=== PATIENT | female | born 1930 | race Caucasian/White ===

== ENCOUNTER 2018-12-04 13:09 | Inpatient (IN) | payer MEDICARE ==
--- NOTE | 2018-12-04 13:26 | ED ---
General Adult HPI - General Chief complaint: Syncope Stated complaint: FALL Time Seen by Provider: 12/04/18 13:11 Source: patient, EMS, RN notes reviewed Mode of arrival: EMS Limitations: no limitations - History of Present Illness Initial comments: This is an 88-year-old female who presents emergency Department complaining of having had a syncopal episode 5:00 this morning patient states she had no symptoms prior or after the fall. Patient states she did not injure herself. Patient states she has a chronic C2 fracture of her neck and was not wearing her collar when she fell. Patient denies any new neck pain today patient denies any numbness weakness. Patient denies any headache patient denies any areas of tenderness on her scalp. Patient denies any chest pain palpitations difficulty breathing shortness of breath. Patient states later in the afternoon when her daughter is at the house she had another syncopal episode and again no symptoms prior to or after the episode. Patient states currently lying in bed she feels completely at her baseline. Patient has no new pain. - Related Data Home Medications Medication Instructions Recorded Confirmed Acetaminophen [Tylenol Arthritis] 1,300 mg PO BID 12/04/18 12/04/18 Artificial Tears-Hypromellose 1 drop LEFT EYE BID 12/04/18 12/04/18 [Artificial Tear Drops] Ascorbic Acid [Vitamin C] 500 mg PO DAILY 12/04/18 12/04/18 Aspirin [[place] Aspirin EC] 81 mg PO DAILY 12/04/18 12/04/18 Brimonidine Tartrate [Alphagan P 1 drop LEFT EYE BID 12/04/18 12/04/18 [facility] Calcium Carbonate [Calcium] 600 mg PO DAILY 12/04/18 12/04/18 Cholecalciferol [Vitamin D3] 400 unit PO DAILY 12/04/18 12/04/18 Cyanocobalamin (Vitamin B-12) 1,000 mg PO DAILY 12/04/18 12/04/18 [Vitamin B-12] Docusate [Colace] 100 mg PO DAILY 12/04/18 12/04/18 Dorzolamide 2% [Trusopt 2%] 1 drop LEFT EYE BID 12/04/18 12/04/18 Esomeprazole Magnesium [NexIUM] 40 mg PO DAILY 12/04/18 12/04/18 FLUoxetine HCL [PROzac] 10 mg PO DAILY 12/04/18 12/04/18 Fluticasone Nasal [place] [Flonase 1 spray EA NOSTRIL BID 12/04/18 12/04/18 Nasal [place]] Folic Acid 1 mg PO DAILY 12/04/18 12/04/18 Glucosamine Sulfate 500 mg PO DAILY 12/04/18 12/04/18 Latanoprost/Pf [Latanoprost 0.005% 1 drop BOTH EYES HS 12/04/18 12/04/18 Eye Drop] Lidocaine/Menthol [Icy Hot 4%-1% 1 patch TRANSDERM DAILY PRN 12/04/18 12/04/18 Patch] Losartan Potassium 100 mg PO BID 12/04/18 12/04/18 Lysine [l-Lysine] 500 mg PO DAILY 12/04/18 12/04/18 Memantine HCl/Donepezil HCl 1 cap PO DAILY 12/04/18 12/04/18 [Namzaric 28 mg-10 mg Capsule] Methimazole 5 mg PO MOWEFR 12/04/18 12/04/18 Multivitamins, Thera [Multivitamin 1 tab PO DAILY 12/04/18 12/04/18 (formulary)] [place]-3/Dha/Epa/Fish Oil [Fish Oil 500 mg PO DAILY 12/04/18 12/04/18 500 mg Softgel] Polyethylene Glycol 3350 [Miralax] 17 gram PO DAILY PRN 12/04/18 12/04/18 Sennosides [Senokot] 8.6 mg PO BID 12/04/18 12/04/18 Simvastatin [Zocor] 20 mg PO HS 12/04/18 12/04/18 Timolol 0.5% Ophth Soln [Timoptic 1 drop LEFT EYE BID 12/04/18 12/04/18 0.5% Ophth Soln] amLODIPine [Norvasc] 2.5 mg PO DAILY 12/04/18 12/04/18 Allergies Allergy/AdvReac Type Severity Reaction Status Date / Time adhesive tape Allergy Unknown Verified 12/04/18 13:16 naproxen [From Aleve] Allergy Nausea & Verified 12/04/18 13:39 Vomiting & Diarrhea Penicillins Allergy Unknown Verified 12/04/18 13:16 Review of Systems ROS Statement: Those systems with pertinent positive or pertinent negative responses have been documented in the HPI. ROS Other: All systems not noted in ROS Statement are negative. Past Medical History Past Medical History: Cancer, GERD/Reflux, Hyperlipidemia, Hypertension Additional Past Medical History / Comment(s): C-1 fx, breast cancer Past Surgical History: Orthopedic Surgery, Tonsillectomy Additional Past Surgical History / Comment(s): (L) breast biopsy Past Psychological History: No Psychological Hx Reported Smoking Status: Never smoker Past Alcohol Use History: None Reported General Exam - General Exam Comments Initial Comments: GENERAL: Patient is well-developed and well-nourished. Patient is nontoxic and well- hydrated and is in no acute distress. EYES: The sclera were anicteric and conjunctiva were pink and moist. Extraocular movements were intact and pupils were equal round and reactive to light. Eyelids were unremarkable. PULMONARY: Patient has normal lung sounds. Patient is moving good air. CARDIOVASCULAR: There is a regular rate and rhythm without any murmurs gallops or rubs. ABDOMEN: Soft and nontender with normal bowel sounds. No palpable organomegaly was noted. There is no palpable pulsatile mass. SKIN: Skin is clear with no lesions or rashes and otherwise unremarkable. NEUROLOGIC: Patient is alert and oriented x3. Cranial nerves II through XII are grossly intact. Motor and sensory are also intact. Normal speech, volume and content. Symmetrical smile. MUSCULOSKELETAL: Normal extremities with adequate strength and full range of motion. No lower extremity swelling or edema. No calf tenderness. LYMPHATICS: No significant lymphadenopathy is noted PSYCHIATRIC: Normal psychiatric evaluation. Limitations: no limitations Course Vital Signs 12/04/18 12/04/18 12/04/18 13:11 13:54 14:52 Temperature 98.1 F Pulse Rate 64 66 71 Respiratory 16 18 18 Rate Blood Pressure 184/79 178/76 178/76 O2 Sat by Pulse 95 100 100 Oximetry Medical Decision Making - Medical Decision Making EKG shows sinus rhythm at 65 bpm IA interval is 2:30 QRS is 94 Q-T intervals 460 QTC is 478. Patient's EKG shows no ST segment elevation or depression or T wave abnormalities are noted C-spine CT was negative for fracture. Chest x-ray shows some possible pulmonary edema of the patient is not having difficulty breathing I spoke with because he agreed to admit the patient admitted patient wrote admitting orders acute abnormality. - Lab Data Result diagrams: 12/04/18 13:25 12/04/18 13:25 Lab Results 12/04/18 12/04/18 12/04/18 Range/Units 13:25 13:25 13:25 WBC 7.9 (3.8-10.6) k/uL RBC 3.83 (3.80-5.40) m/uL Hgb 11.4 (11.4-16.0) gm/dL Hct 36.5 (34.0-46.0) % MCV 95.4 (80.0-100.0) fL MCH 29.7 (25.0-35.0) pg MCHC 31.1 (31.0-37.0) g/dL RDW 13.7 (11.5-15.5) % Plt Count 448 (150-450) k/uL Neutrophils % 84 % Lymphocytes % 4 % Monocytes % 9 % Eosinophils % 1 % Basophils % 0 % Neutrophils # 6.6 (1.3-7.7) k/uL Lymphocytes # 0.3 L (1.0-4.8) k/uL Monocytes # 0.7 (0-1.0) k/uL Eosinophils # 0.1 (0-0.7) k/uL Basophils # 0.0 (0-0.2) k/uL PT 10.1 (9.0-12.0) sec INR 0.9 (<1.2) APTT 25.8 (22.0-30.0) sec Sodium 135 L (137-145) mmol/L Potassium 3.2 L (3.5-5.1) mmol/L Chloride 98 (98-107) mmol/L Carbon Dioxide 27 (22-30) mmol/L Anion Gap 10 mmol/L BUN 11 (7-17) mg/dL Creatinine 0.90 (0.52-1.04) mg/dL Est GFR (CKD-EPI)AfAm 66 (>60 ml/min/1.73 sqM) Est GFR (CKD-EPI)NonAf 58 (>60 ml/min/1.73 sqM) Glucose 83 (74-99) mg/dL Calcium 9.5 (8.4-10.2) mg/dL Magnesium 1.8 (1.6-2.3) mg/dL Total Bilirubin 0.5 (0.2-1.3) mg/dL AST 22 (14-36) U/L ALT 29 (9-52) U/L Alkaline Phosphatase 77 (38-126) U/L Troponin I (0.000-0.034) ng/mL Total Protein 6.5 (6.3-8.2) g/dL Albumin 3.6 (3.5-5.0) g/dL 12/04/18 Range/Units 13:25 WBC (3.8-10.6) k/uL RBC (3.80-5.40) m/uL Hgb (11.4-16.0) gm/dL Hct (34.0-46.0) % MCV (80.0-100.0) fL MCH (25.0-35.0) pg MCHC (31.0-37.0) g/dL RDW (11.5-15.5) % Plt Count (150-450) k/uL Neutrophils % % Lymphocytes % % Monocytes % % Eosinophils % % Basophils % % Neutrophils # (1.3-7.7) k/uL Lymphocytes # (1.0-4.8) k/uL Monocytes # (0-1.0) k/uL Eosinophils # (0-0.7) k/uL Basophils # (0-0.2) k/uL PT (9.0-12.0) sec INR (<1.2) APTT (22.0-30.0) sec Sodium (137-145) mmol/L Potassium (3.5-5.1) mmol/L Chloride (98-107) mmol/L Carbon Dioxide (22-30) mmol/L Anion Gap mmol/L BUN (7-17) mg/dL Creatinine (0.52-1.04) mg/dL Est GFR (CKD-EPI)AfAm (>60 ml/min/1.73 sqM) Est GFR (CKD-EPI)NonAf (>60 ml/min/1.73 sqM) Glucose (74-99) mg/dL Calcium (8.4-10.2) mg/dL Magnesium (1.6-2.3) mg/dL Total Bilirubin (0.2-1.3) mg/dL AST (14-36) U/L ALT (9-52) U/L Alkaline Phosphatase (38-126) U/L Troponin I 0.014 (0.000-0.034) ng/mL Total Protein (6.3-8.2) g/dL Albumin (3.5-5.0) g/dL Disposition Clinical Impression: Syncope and collapse Disposition: ADMITTED IP TO THIS HOSP Referrals: None,Stated [REFERRING] - 1-2 days Time of Disposition: 16:07
[2018-12-04 14:11] LABS: Basophils % (A) 0 %; Eosinophils # (A) 0.1 k/uL (0-0.7); Eosinophils % (A) 1 %; HCT 36.5 % (34.0-46.0); HGB 11.4 gm/dL (11.4-16.0); Lymphocytes # (A) 0.3 k/uL (1.0-4.8); Lymphocytes % (A) 4 %; MCH 29.7 pg (25.0-35.0); MCHC 31.1 g/dL (31.0-37.0); MCV 95.4 fL (80.0-100.0); Mean Platelet Volume 6.5; Monocytes # (A) 0.7 k/uL (0-1.0); Monocytes % (A) 9 %; Neutrophils # (A) 6.6 k/uL (1.3-7.7); Neutrophils % (A) 84 %; Platelet Count 448 k/uL (150-450); RBC 3.83 m/uL (3.80-5.40); RDW 13.7 % (11.5-15.5); WBC 7.9 k/uL (3.8-10.6)
[2018-12-04 14:21] LABS: Albumin 3.6 g/dL (3.5-5.0); Calcium 9.5 mg/dL (8.4-10.2); Magnesium 1.8 mg/dL (1.6-2.3); Potassium 3.2 mmol/L (3.5-5.1); Total Bilirubin 0.5 mg/dL (0.2-1.3); Total Protein 6.5 g/dL (6.3-8.2)
[2018-12-04 14:23] LABS: INR 0.9 (<1.2); Partial Thromboplastin Time 25.8 sec (22.0-30.0); Prothrombin Time 10.1 sec (9.0-12.0)
--- NOTE | 2018-12-04 14:23 | CT ---
EXAMINATION TYPE: CT cervical spine wo con DATE OF EXAM: 12/04/2018 COMPARISON: NONE HISTORY: Fall injury with neck pain. CT DLP: 317.1 mGycm. Automated Exposure Control for Dose Reduction was Utilized. TECHNIQUE: CT scan of the cervical spine is obtained without contrast, axial images are obtained, sa gittal and coronal reformatted images are also reviewed. FINDINGS: Cervical spine is visualized in its entirety from C1 through upper thoracic levels, demonst rates satisfactory alignment with old type II dens fracture as there is well-defined horizontal cleft with adjacent subchondral cystic change and sclerosis at base of dens. There is no acute fracture or dislocation seen. There is moderate disc space narrowing with disc calcification and mild spurring C 5-C6 level. There is moderate to severe disc space narrowing and spurring with disc calcification C6- C7 level. Posterior spur disc complexes are effacing anterior thecal sac at these levels. Slight S-sh aped scoliotic curvature is seen on coronal images. Review of axial images shows multilevel uncovertebral facet degenerative changes causing multilevel n eural foraminal narrowing most prominent left C3-C4 level axial image 32 and bilateral C4-C5 level ax ial image 39 as well as left C5-C6 level axial image 46. Mild to moderate calcified plaque left carot id bulb is present. There is heterogeneous slightly enlarged thyroid suspected lower pole nodules cor onal image 27 greater than 1 cm. Visualized lungs show emphysematous change and motion artifact degra dation with suspected anterolateral linear scarring and/or atelectasis axial image 104 partially imag ed. IMPRESSION: There is no acute fracture or dislocation evident in the cervical spine. There is old ty pe II dens fracture noted. Suspect lower pole left thyroid nodules greater than 1 cm. If this is not known finding, follow-up thyroid ultrasound would be advised to further evaluate and characterize.
[2018-12-04] MEDS ORDERED: METHYL SALICYLATE/MENTHOL CREAM 5 OZ TOPICAL PRN (15:47)
[2018-12-04] MEDS ORDERED: POTASSIUM CHLORIDE ER 20 MEQ TAB.ER PO STA (15:54)
[2018-12-04] MEDS ORDERED: METHIMAZOLE 5 MG TAB PO SCH (16:00)
--- NOTE | 2018-12-04 16:02 | XR ---
EXAMINATION TYPE: XR chest 2V DATE OF EXAM: 12/04/2018 COMPARISON: NONE HISTORY: Pain. TECHNIQUE: Frontal and lateral views of the chest are obtained. FINDINGS: There is chronic parenchymal change felt bilaterally with small to tiny bilateral pleural effusions as there is blunting of bilateral costophrenic angles. The cardiac silhouette size is enla rged. No suspicious focal airspace opacity or pneumothorax is seen bilaterally. The osseous structur es are demineralized. Vertebroplasty changes noted roughly T10 level. There is moderate to severe mul tilevel spurring in the thoracolumbar spine redemonstrated with slight scoliotic curvature. IMPRESSION: Correlate for CHF exacerbation as there is cardiomegaly with suspected mild central vascu lar congestion and small to tiny bilateral pleural effusions. Background chronic parenchymal change f elt present.
--- NOTE | 2018-12-04 16:05 | P.HPIM ---
History of Present Illness 82-year-old doesn't female with a history of dementia appears to have moderate dementia may be vascular or senile dementia was brought in as patient had couple syncopal episodes 1 happened earlier today morning at 5 AM and the this was not witnessed patient denied any lightheadedness preceding that patient was found later there is no evidence of seizure-like activity loss of bowel or bladder continence postictal confusion. Patient had another episode which was witnessed by order and she come did complain of some stiffness without any tonic-clonic activity. Patient did appear to have syncopal episode rather than a seizure de nied any loss of bowel or bladder continence patient didn't have any history of seizures in the past. Patient denied any fever chills, dysuria or increased urinary frequency. 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 Patient vitals are stable orthostatics are negative. EKG showed sinus rhythm there may be occasional first-degree AV block. Patient does have a systolic murmur loudest in the aortic area and probably a diastolic murmur as well appears to have aortic stenosis echocardiogram will be obtained. Patient's cervical spine CT did not show any new fracture although I do not have a CAT sc an of the head which will be obtained. Patient does have glaucoma uses multiple eyedrops for that does appear to have hypothyroidism for which patient is on methimazole is also nodular thyroid on the CAT scan Review of Systems REVIEW OF SYSTEMS: CONSTITUTIONAL: No fever, no malaise, no fatigue. HEENT: No recent visual problems or hearing problems. Denied any sore throat. CARDIOVASCULAR: No chest pain, orthopnea, PND, no palpitations, PULMONARY: No shortness of breath, no cough, no hemoptysis. GASTROINTESTINAL: No diarrhea, no nausea, no vomiting, no abdominal pain. NEUROLOGICAL: No headaches, no weakness, no numbness. HEMATOLOGICAL: Denies any bleeding or petechiae. GENITOURINARY: Denies any burning micturition, frequency, or urgency. MUSCULOSKELETAL/RHEUMATOLOGICAL: Denies any joint pain, swelling, or any muscle pain. ENDOCRINE: Denies any polyuria or polydipsia. The rest of the 14-point review of systems is negative. Past Medical History Past Medical History: Cancer, GERD/Reflux, Hyperlipidemia, Hypertension Additional Past Medical History / Comment(s): C-1 fx, breast cancer Past Surgical History: Orthopedic Surgery, Tonsillectomy Additional Past Surgical History / Comment(s): (L) breast biopsy Past Psychological History: No Psychological Hx Reported Smoking Status: Never smoker Past Alcohol Use History: None Reported Medications and Allergies Home Medications Medication Instructions Recorded Confirmed Type Acetaminophen [Tylenol Arthritis] 1,300 mg PO BID 12/04/18 12/04/18 History Artificial Tears-Hypromellose 1 drop LEFT EYE BID 12/04/18 12/04/18 History [Artificial Tear Drops] Ascorbic Acid [Vitamin C] 500 mg PO DAILY 12/04/18 12/04/18 History Aspirin [[place] Aspirin EC] 81 mg PO DAILY 12/04/18 12/04/18 History Brimonidine Tartrate [Alphagan P 1 drop LEFT EYE BID 12/04/18 12/04/18 History 0.2% Ophth Soln] Calcium Carbonate [Calcium] 600 mg PO DAILY 12/04/18 12/04/18 History Cholecalciferol [Vitamin D3] 400 unit PO DAILY 12/04/18 12/04/18 History Cyanocobalamin (Vitamin B-12) 1,000 mg PO DAILY 12/04/18 12/04/18 History [Vitamin B-12] Docusate [Colace] 100 mg PO DAILY 12/04/18 12/04/18 History Dorzolamide 2% [Trusopt 2%] 1 drop LEFT EYE BID 12/04/18 12/04/18 History Esomeprazole Magnesium [NexIUM] 40 mg PO DAILY 12/04/18 12/04/18 History FLUoxetine HCL [PROzac] 10 mg PO DAILY 12/04/18 12/04/18 History Fluticasone Nasal [place] [Flonase 1 spray EA NOSTRIL BID 12/04/18 12/04/18 History Nasal [place]] Folic Acid 1 mg PO DAILY 12/04/18 12/04/18 History Glucosamine Sulfate 500 mg PO DAILY 12/04/18 12/04/18 History Latanoprost/Pf [Latanoprost 0.005% 1 drop BOTH EYES HS 12/04/18 12/04/18 History Eye Drop] Lidocaine/Menthol [Icy Hot 4%-1% 1 patch TRANSDERM DAILY PRN 12/04/18 12/04/18 History Patch] Losartan Potassium 100 mg PO BID 12/04/18 12/04/18 History Lysine [l-Lysine] 500 mg PO DAILY 12/04/18 12/04/18 History Memantine HCl/Donepezil HCl 1 cap PO DAILY 12/04/18 12/04/18 History [Namzaric 28 mg-10 mg Capsule] Methimazole 5 mg PO MOWEFR 12/04/18 12/04/18 History Multivitamins, Thera [Multivitamin 1 tab PO DAILY 12/04/18 12/04/18 History (formulary)] [place]-3/Dha/Epa/Fish Oil [Fish Oil 500 mg PO DAILY 12/04/18 12/04/18 History 500 mg Softgel] Polyethylene Glycol 3350 [Miralax] 17 gram PO DAILY PRN 12/04/18 12/04/18 History Sennosides [Senokot] 8.6 mg PO BID 12/04/18 12/04/18 History Simvastatin [Zocor] 20 mg PO HS 12/04/18 12/04/18 History Timolol 0.5% Ophth Soln [Timoptic 1 drop LEFT EYE BID 12/04/18 12/04/18 History 0.5% Ophth Soln] amLODIPine [Norvasc] 2.5 mg PO DAILY 12/04/18 12/04/18 History Allergies Allergy/AdvReac Type Severity Reaction Status Date / Time adhesive tape Allergy Unknown Verified 12/04/18 13:16 naproxen [From Aleve] Allergy Nausea & Verified 12/04/18 13:39 Vomiting & Diarrhea Penicillins Allergy Unknown Verified 12/04/18 13:16 Physical Exam Vitals: Vital Signs Temp Pulse Resp BP Pulse Ox 12/04/18 14:52 71 18 178/76 100 12/04/18 13:54 66 18 178/76 100 12/04/18 13:11 98.1 F 64 16 184/79 95 Intake and Output 12/04/18 12/04/18 12/04/18 06:59 14:59 22:59 Other: Weight 66.5 kg PHYSICAL EXAMINATION: GENERAL: The patient is alert and oriented x3, not in any acute distress. Well developed, well nourished. HEENT: Pupils are round and equally reacting to light. EOMI. No scleral icterus. No conjunctival pallor. Normocephalic, atraumatic. No pharyngeal erythema. No thyromegaly. CARDIOVASCULAR: S1 and S2 present. No rubs, or gallops. Murmur as mentioned above PULMONARY: Chest is clear to auscultation, no wheezing or crackles. ABDOMEN: Soft, nontender, nondistended, normoactive bowel sounds. No palpable organomegaly. MUSCULOSKELETAL: No joint swelling or deformity. EXTREMITIES: No cyanosis, clubbing, or pedal edema. NEUROLOGICAL: Gross neurological examination did not reveal any focal deficits. SKIN: No rashes. Results CBC & Chem 7: 12/04/18 13:25 12/04/18 13:25 Labs: Abnormal Lab Results - Last 24 Hours (Table) 12/04/18 12/04/18 Range/Units 13:25 13:25 Lymphocytes # 0.3 L (1.0-4.8) k/uL Sodium 135 L (137-145) mmol/L Potassium 3.2 L (3.5-5.1) mmol/L Assessment and Plan Plan: -Syncope patient will be continued on manager monitoring, echocardiogram will be obtained patient does have aortic stenotic murmur orthostatic vitals are negative. Patient may have mild dehydration patient will be started and continued on IV fluids gentle hydration at this time. Low possibly a seizure, will obtain EEG and also a CAT scan of the head. -Recent diarrhea: Viral gastroenteritis if she can use to have diarrhea we'll obtain C. diff testing patient may be bit dehydrated from that IV fluids as mentioned above -Hypothyroidism continue with methimazole obtain TSH -Gastroesophageal reflux disease -Hyperlipidemia -Hypertension patient is on 100 twice a day of losartan and pelvis switched to 100 daily continue with amlodipine, we have to make sure that patient's diastolic will not go below 60 which can lead to falls in elderly -Glaucoma continue her eyedrops -History of C1 fracture patient will continue her for a soft collar will not hard collar, patient is presently wearing a hard collar until the CAT scan is available of the CAT scan is available will not need hard collar anymore -Depression continue with fluoxetine Moderate dementia possibility of vascular or senile dementia. PT and OT consultation -Patient will need pharmacologic DVT prophylaxis
[2018-12-04] MEDS ORDERED: NITROGLYCERIN SL TABS 0.4 MG TAB SUBLINGUAL PRN (16:08)
--- NOTE | 2018-12-04 16:30 | CT ---
EXAMINATION TYPE: CT brain wo con DATE OF EXAM: 12/04/2018 HISTORY: Syncopal episode today. CT DLP: 1105.4 mGycm. Automated Exposure Control for Dose Reduction was Utilized. TECHNIQUE: CT scan of the head is performed without contrast. COMPARISON: None. FINDINGS: There is no acute intracranial hemorrhage or midline shift identified. There is diffuse v entricular and sulcal prominence consistent with diffuse age-related cerebral atrophy. There is low- attenuation in the periventricular white matter consistent with chronic small vessel ischemic change. There is mild to moderate mucosal thickening inferiorly in the right maxillary sinus. Remainder para nasal sinuses are clear. Scleral calcification right globe is present. No suspicious opacification ma stoid air cells is present. IMPRESSION: No acute intracranial hemorrhage or midline shift. There is mild to moderate diffuse ag e-related cerebral atrophy and moderate to severe chronic small vessel ischemic change noted.
[2018-12-04] MEDS: SODIUM CHLORIDE 0.9% 1,000 ML IV SCH (16:37)
[2018-12-04 22:48] VITALS: BMI 27.6
[2018-12-04] MEDS: ATORVASTATIN 10 MG TAB PO SCH (23:40)
[2018-12-04] MEDS: FAMOTIDINE 20 MG TAB PO SCH (23:40)
[2018-12-04] MEDS: DORZOLAMIDE HCL 2% DROPS 10 ML BTL LEFT EYE SCH (23:41)
[2018-12-04] MEDS: ARTIFICIAL TEARS-HYPROMELLOSE DROPS 15 ML BTL LEFT EYE SCH (23:41)
[2018-12-04] MEDS: TIMOLOL 0.5% OPHTH DROPS 5 ML BTL LEFT EYE SCH (23:42)
[2018-12-04] MEDS: LATANOPROST 0.005% OPHTH DROPS 2.5 ML BTL BOTH EYES SCH (23:42)
[2018-12-04] MEDS: BRIMONIDINE TARTRATE 0.2% DROPS 5 ML BTL LEFT EYE SCH (23:42)
[2018-12-04] MEDS: FLUTICASONE 50MCG/SPRAY NASAL 16GM EA NOSTRIL SCH (23:43)
[2018-12-05] MEDS ORDERED: LOSARTAN 50 MG TAB PO STA (00:24)
[2018-12-05] MEDS: ACETAMINOPHEN TAB 325 MG TAB PO SCH ×3 (01:19→20:57)
[2018-12-05] MEDS ORDERED: hydrALAZINE HCL 20 MG/ML 1 ML VIAL IVP ONE (05:00)
[2018-12-05] MEDS ORDERED: amLODIPine 5 MG TAB PO ONE (05:00)
[2018-12-05] MEDS: SODIUM CHLORIDE 0.9% 1,000 ML IV SCH (06:07)
[2018-12-05 07:07] LABS: Calcium 9.1 mg/dL (8.4-10.2); Potassium 3.4 mmol/L (3.5-5.1)
[2018-12-05] MEDS: FAMOTIDINE 20 MG TAB PO SCH (08:24)
[2018-12-05] MEDS: ASPIRIN 81 MG PO SCH (08:25)
[2018-12-05] MEDS: LOSARTAN 50 MG TAB PO SCH (08:25)
[2018-12-05] MEDS: BRIMONIDINE TARTRATE 0.2% DROPS 5 ML BTL LEFT EYE SCH ×2 (08:25→21:02)
[2018-12-05] MEDS: PANTOPRAZOLE 40 MG TABLET PO SCH (08:25)
[2018-12-05] MEDS: TIMOLOL 0.5% OPHTH DROPS 5 ML BTL LEFT EYE SCH ×2 (08:25→21:02)
[2018-12-05] MEDS: DORZOLAMIDE HCL 2% DROPS 10 ML BTL LEFT EYE SCH ×2 (08:26→21:02)
[2018-12-05] MEDS: FLUTICASONE 50MCG/SPRAY NASAL 16GM EA NOSTRIL SCH ×2 (08:26→21:00)
[2018-12-05] MEDS: ARTIFICIAL TEARS-HYPROMELLOSE DROPS 15 ML BTL LEFT EYE SCH ×2 (08:26→21:00)
[2018-12-05] MEDS ORDERED: ASPIRIN 325 MG TAB PO SCH (09:00)
[2018-12-05] MEDS ORDERED: amLODIPine 2.5 MG TAB PO SCH (09:00)
[2018-12-05] MEDS: CHOLECALCIFEROL 400 UNIT TAB PO SCH (10:24)
[2018-12-05] MEDS: ASCORBIC ACID 500 MG TAB PO SCH (10:24)
[2018-12-05] MEDS: FLUoxetine HCL 10 MG CAP PO SCH (10:24)
[2018-12-05] MEDS: OSELTAMIVIR 75 MG CAP PO SCH (13:04)
--- NOTE | 2018-12-05 13:44 | P.CRDCN ---
History of Present Illness History of present illness: up to the bathroom urinating and passed out around 0500. then at 1100 same thing happened. has been nauseated and coughing. no chest pain, dizziness or shortness of breath. has not been eating or drinking the last few days due to nausea and feeling sick. This is a pleasant 88-year-old female past medical history significant for hypertension, dyslipidemia and gastroesophageal reflux disease. 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 There is no documentation that she has ever been to our office. We have been asked to see her in consultation secondary to syncope. She states for the previous 2-3 days she has been feeling generally unwell with less of appetite, nausea and coughing. She woke up yesterday morning to use the restroom and ambulated to the bathroom without difficulty. S he sat down to urinate and subsequently thereafter she passed out. She does not recall having any chest discomfort, dizziness or shortness of breath prior to passing out. She woke up on the floor he continued about her day. Later in the afternoon around 11:00 her daughter was assisting her to get dressed and the patient states she passed out again. She again denies any symptoms precipitating the event such as chest pain, dizziness, shortness of breath or palpitations. Upon arrival to the emergency department she was diagnosed with influenza A and has been febrile. She is seen and examined resting comfortably in bed in no acute distress. EKG reveals sinus mechanism heart rate 65 with a first-degree AV block noted. No acute ST or T wave abnormalities noted. Telemetry tracings have been unremarkable for an acute arrhythmia since admission. Chest x-ray reveals evidence of cardiomegaly with mild central vascular congestion and small tiny pleural effusions noted. Chronic parenchymal changes as well. 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 Laboratory data reviewed, WBC 7.9, hemoglobin 11.4, platelets 448, sodium 134, potassium 3.4, creatinine 0.83, magnesium 1.8, cardiac enzymes negative 3, LDL 61, HDL 63 and TSH 1.43. Current cardiac medications include losartan 100 mg twice a day, simvastatin 20 mg daily, aspirin 81 mg daily, amlodipine 2.5 mg daily. At the time of my exam: CONSTITUTIONAL: Denies fever. Denies chills. EYES: Denies blurred vision. Denies vision changes. Denies eye pain. EARS, NOSE, MOUTH & THROAT: Denies headache. Denies sore throat. Denies ear pain. CARDIOVASCULAR: Denies chest pain. Denies shortness of breath. Denies orthopnea. Denies PND. Denies palpitations. RESPIRATORY: Denies cough. GASTROINTESTINAL: Denies abdominal pain. Denies diarrhea. Denies constipation. Denies nausea. Denies vomiting. MUSCULOSKELETAL: Denies myalgias. INTEGUMENTARY: Denies pruitis. Denies rash. NEUROLOGIC: Denies numbness. Denies tingling. Denies weakness. PSYCHIATRIC: Denies anxiety. Denies depression. ENDOCRINE: Denies fatigue. Denies weight change. Denies polydipsia. Denies polyurina. GENITOURINARY: Denies burning, hematuria or urgency with micturation. HEMATOLOGIC: Denies history of anemia. Denies bleeding. Blood pressure 170/74 heart rate 60 temperature 100F maintaining oxygen saturation on room air GENERAL: This is a 88-year-old female in no apparent distress at the time of my examination. HEENT: Head is atraumatic, normocephalic. Pupils are equal, round. Sclerae anicteric. Conjunctivae are clear. Mucous membranes of the mouth are moist. Neck is supple. There is no jugular venous distention. No carotid bruit is heard. LUNGS: Clear to auscultation no wheezes, rales or rhonchi. No chest wall tenderness is noted on palpation or with deep breathing. HEART: Regular rate and rhythm with systolic ejection murmur at all listening points, no rubs or gallops. S1 and S2 heard. ABDOMEN: Soft, nontender. Bowel sounds are heard. No organomegaly noted. EXTREMITIES: No evidence of peripheral edema and no calf tenderness noted. VASCULAR: Radial and dorsalis pedis pulses palpated, no evidence of clubbing. NEUROLOGIC: Patient is awake, alert and oriented x3. ASSESSMENT Influenza A Syncope Hypokalemia Febrile illness Hypertension Dyslipidemia Suspected valvular disease PLAN An acute coronary syndrome ruled out. No evidence of tachycardia or bradycardia arrhythmia noted. Syncopal spells may be related to acute dehydration with poor oral intake secondary to influenza. Obtain 2-D echocardiogram and Doppler study to assess cardiac structure and function. Ongoing telemetry monitoring to assess for bradycardia arrhythmia. Ongoing medical management. Thank you kindly for this consultation. Nurse Practitioner note has been reviewed, I agree with a documented findings and plan of care. Patient was seen and examined. Past Medical History Past Medical History: Cancer, GERD/Reflux, Hyperlipidemia, Hypertension Additional Past Medical History / Comment(s): C-1 fx, breast cancer History of Any Multi-Drug Resistant Organisms: None Reported Past Surgical History: Orthopedic Surgery, Tonsillectomy Additional Past Surgical History / Comment(s): (L) breast biopsy, BL knee replacements Past Anesthesia/Blood Transfusion Reactions: No Reported Reaction Past Psychological History: No Psychological Hx Reported Smoking Status: Never smoker Past Alcohol Use History: None Reported Medications and Allergies Home Medications Medication Instructions Recorded Confirmed Type Acetaminophen [Tylenol Arthritis] 1,300 mg PO BID 12/04/18 12/04/18 History Artificial Tears-Hypromellose 1 drop LEFT EYE BID 12/04/18 12/04/18 History [Artificial Tear Drops] Ascorbic Acid [Vitamin C] 500 mg PO DAILY 12/04/18 12/04/18 History Aspirin [Murray Aspirin EC] 81 mg PO DAILY 12/04/18 12/04/18 History Brimonidine Tartrate [Alphagan P 1 drop LEFT EYE BID 12/04/18 12/04/18 History 0.2% Ophth Soln] Calcium Carbonate [Calcium] 600 mg PO DAILY 12/04/18 12/04/18 History Cholecalciferol [Vitamin D3] 400 unit PO DAILY 12/04/18 12/04/18 History Cyanocobalamin (Vitamin B-12) 1,000 mg PO DAILY 12/04/18 12/04/18 History [Vitamin B-12] Docusate [Colace] 100 mg PO DAILY 12/04/18 12/04/18 History Dorzolamide 2% [Trusopt 2%] 1 drop LEFT EYE BID 12/04/18 12/04/18 History Esomeprazole Magnesium [NexIUM] 40 mg PO DAILY 12/04/18 12/04/18 History FLUoxetine HCL [PROzac] 10 mg PO DAILY 12/04/18 12/04/18 History Fluticasone Nasal [place] [Flonase 1 spray EA NOSTRIL BID 12/04/18 12/04/18 History Nasal [place]] Folic Acid 1 mg PO DAILY 12/04/18 12/04/18 History Glucosamine Sulfate 500 mg PO DAILY 12/04/18 12/04/18 History Latanoprost/Pf [Latanoprost 0.005% 1 drop BOTH EYES HS 12/04/18 12/04/18 History Eye Drop] Lidocaine/Menthol [Icy Hot 4%-1% 1 patch TRANSDERM DAILY PRN 12/04/18 12/04/18 History Patch] Losartan Potassium 100 mg PO BID 12/04/18 12/04/18 History Lysine [l-Lysine] 500 mg PO DAILY 12/04/18 12/04/18 History Memantine HCl/Donepezil HCl 1 cap PO DAILY 12/04/18 12/04/18 History [Namzaric 28 mg-10 mg Capsule] Methimazole 5 mg PO MOWEFR 12/04/18 12/04/18 History Multivitamins, Thera [Multivitamin 1 tab PO DAILY 12/04/18 12/04/18 History (formulary)] Corinth-3/Dha/Epa/Fish Oil [Fish Oil 500 mg PO DAILY 12/04/18 12/04/18 History 500 mg Softgel] Polyethylene Glycol 3350 [Miralax] 17 gram PO DAILY PRN 12/04/18 12/04/18 History Sennosides [Senokot] 8.6 mg PO BID 12/04/18 12/04/18 History Simvastatin [Zocor] 20 mg PO HS 12/04/18 12/04/18 History Timolol 0.5% Ophth Soln [Timoptic 1 drop LEFT EYE BID 12/04/18 12/04/18 History 0.5% Ophth Soln] amLODIPine [Norvasc] 2.5 mg PO DAILY 12/04/18 12/04/18 History Allergies Allergy/AdvReac Type Severity Reaction Status Date / Time adhesive tape Allergy Unknown Verified 12/04/18 13:16 naproxen [From Aleve] Allergy Nausea & Verified 12/04/18 13:39 Vomiting & Diarrhea Penicillins Allergy Unknown Verified 12/04/18 13:16 Physical Exam Vitals: Vital Signs Temp Pulse Pulse Pulse Pulse Pulse Resp 12/05/18 08:16 74 12/05/18 07:54 100.5 F H 89 18 12/05/18 06:33 70 12/05/18 03:58 70 71 18 12/05/18 03:48 100.7 F H 71 18 12/05/18 00:10 12/05/18 00:00 70 67 16 12/04/18 23:41 100.1 F H 67 16 12/04/18 22:18 100.8 F H 74 16 12/04/18 21:49 78 16 12/04/18 18:41 71 18 12/04/18 16:42 70 75 70 12/04/18 16:38 74 18 12/04/18 14:52 71 18 12/04/18 13:54 66 18 12/04/18 13:11 98.1 F 64 16 BP BP BP BP BP Pulse Ox 12/05/18 08:16 210/80 94 L 12/05/18 07:54 216/98 94 L 12/05/18 06:33 212/80 12/05/18 03:58 12/05/18 03:48 204/80 93 L 12/05/18 00:10 210/80 12/05/18 00:00 12/04/18 23:41 203/73 94 L 12/04/18 22:18 94 L 12/04/18 21:49 168/87 98 12/04/18 18:41 179/81 100 12/04/18 16:42 201/86 191/80 180/70 12/04/18 16:38 182/95 100 12/04/18 14:52 178/76 100 12/04/18 13:54 178/76 100 12/04/18 13:11 184/79 95 Intake and Output 12/04/18 12/05/18 12/05/18 22:59 06:59 14:59 Other: Voiding Method Toilet # Voids 2 Results 12/04/18 13:25 12/05/18 06:20 Cardiac Enzymes 12/04/18 12/04/18 12/04/18 Range/Units 13:25 13:25 20:35 AST 22 (14-36) U/L Troponin I 0.014 0.021 (0.000-0.034) ng/mL 12/05/18 Range/Units 01:38 AST (14-36) U/L Troponin I 0.034 (0.000-0.034) ng/mL Coagulation 12/04/18 Range/Units 13:25 PT 10.1 (9.0-12.0) sec APTT 25.8 (22.0-30.0) sec Lipids 12/05/18 Range/Units 06:20 Triglycerides 77 (<150) mg/dL Cholesterol 139 (<200) mg/dL HDL Cholesterol 63 H (40-60) mg/dL CBC 12/04/18 Range/Units 13:25 WBC 7.9 (3.8-10.6) k/uL RBC 3.83 (3.80-5.40) m/uL Hgb 11.4 (11.4-16.0) gm/dL Hct 36.5 (34.0-46.0) % Plt Count 448 (150-450) k/uL Comprehensive Metabolic Panel 12/04/18 12/05/18 Range/Units 13:25 06:20 Sodium 135 L 134 L (137-145) mmol/L Potassium 3.2 L 3.4 L (3.5-5.1) mmol/L Chloride 98 100 (98-107) mmol/L Carbon Dioxide 27 27 (22-30) mmol/L BUN 11 11 (7-17) mg/dL Creatinine 0.90 0.83 (0.52-1.04) mg/dL Glucose 83 75 (74-99) mg/dL Calcium 9.5 9.1 (8.4-10.2) mg/dL AST 22 (14-36) U/L ALT 29 (9-52) U/L Alkaline Phosphatase 77 (38-126) U/L Total Protein 6.5 (6.3-8.2) g/dL Albumin 3.6 (3.5-5.0) g/dL Current Medications Generic Name Dose Route Start Last Admin Trade Name Freq PRN Reason Stop Dose Admin Acetaminophen 1,300 mg 12/04/18 21:00 12/05/18 08:24 Tylenol Tab PO 1,300 mg BID [facility] Administration Amlodipine Besylate 2.5 mg 12/05/18 09:00 Norvasc PO DAILY [facility] Artificial Tears 1 drops 12/04/18 21:00 12/05/18 08:26 Artificial Tear Drops LEFT EYE 1 drops BID [facility] Administration Ascorbic Acid 500 mg 12/05/18 09:00 Vitamin C PO DAILY [facility] Aspirin 81 mg 12/05/18 09:00 12/05/18 08:25 Aspirin PO 81 mg DAILY [facility] Administration Atorvastatin Calcium 10 mg 12/04/18 21:00 12/04/18 23:40 Lipitor PO 10 mg HS [facility] Administration Brimonidine Tartrate 1 drops 12/04/18 21:00 12/05/18 08:25 Alphagan P 0.2% Ophth Soln LEFT EYE 1 drops BID [facility] Administration Cholecalciferol 400 unit 12/05/18 09:00 Vitamin D3 PO DAILY [facility] Dorzolamide HCl 1 drops 12/04/18 21:00 12/05/18 08:26 Trusopt LEFT EYE 1 drops BID [facility] Administration Famotidine 20 mg 12/04/18 21:00 12/05/18 08:24 Pepcid PO 20 mg BID [facility] Administration Fluoxetine HCl 10 mg 12/05/18 09:00 Prozac PO DAILY [facility] Fluticasone Propionate 1 spray 12/04/18 21:00 12/05/18 08:26 Flonase Nasal [place] EA NOSTRIL 1 spray BID [facility] Administration Sodium Chloride 1,000 mls @ 75 mls/hr 12/04/18 16:00 12/05/18 06:07 Saline 0.9% IV 75 mls/hr .[id number] [facility] Administration Latanoprost 1 drops 12/04/18 21:00 12/04/18 23:42 Xalatan 0.005% BOTH EYES 1 drops HS [facility] Administration Losartan Potassium 100 mg 12/05/18 09:00 12/05/18 08:25 Cozaar PO 100 mg DAILY [facility] Administration Methimazole 5 mg 12/04/18 16:00 12/04/18 16:28 Tapazole PO Not Given MOWEFR [facility] Methyl Salicylate 1 applic 12/04/18 15:47 Thera-Gesic Cream TOPICAL DAILY PRN LOWER BACK Nitroglycerin 0.4 mg 12/04/18 16:08 Nitrostat SUBLINGUAL Q5M PRN Chest Pain Memantine Hcl/ 1 cap 12/05/18 09:00 Donepezil Hcl [ PO Namzaric 28 Mg-10 Mg DAILY [facility] Capsule] 1 Cap) Pantoprazole Sodium 40 mg 12/05/18 07:30 12/05/18 08:25 Protonix PO 40 mg [id number] [facility] Administration Timolol Maleate 1 drops 12/04/18 21:00 12/05/18 08:25 Timoptic LEFT EYE 1 drops BID [facility] Administration Intake and Output 12/04/18 12/05/18 12/05/18 22:59 06:59 14:59 Other: Voiding Method Toilet # Voids 2 12/04/18 13:25 12/05/18 06:20
--- NOTE | 2018-12-05 13:45 | P.PN ---
Subjective 88-year-old pleasant female admitted for syncopal episode as an MB low possibility of seizure because of which I'm obtaining EEG EEG results are pend ing echocardiogram is pending. CT of the head showed severe chronic microvascular ischemic changes may have vascular dementia. Patient mental status is fairly stable and cleared at this time and is at her baseline. Patient started having fever yesterday because of which septic workup is being done and patient is found to have positive influenza patient will be started on IV fluids and will be continued on IV fluids and Tamiflu. Patient's syncope may be secondary to influenza. Patient is mildly hyponatremic possibly hypovolemic hyponatremia expected to improve with fluids. Patient doesn't have any cough or dysuria, did have diarrhea Constitutional: Denied any fatigue denied any fever. Cardio vascular: denied any chest pain, palpitations Gastrointestinal denied any nausea vomiting Pulmonary: Denied any shortness of breath cough Neurologic denied any new focal deficits All inpatient medications were reviewed and appropriate changes in these medications as dictated in the interval history and assessment and plan. Objective - Vital Signs Vital signs: Vital Signs Temp 100.0 F H 12/05/18 10:30 Pulse 60 12/05/18 10:30 Resp 18 12/05/18 07:54 BP 170/74 12/05/18 10:30 Pulse Ox 98 12/05/18 10:30 Intake & Output 12/04/18 12/05/18 12/05/18 18:59 06:59 18:59 Weight 66.5 kg Other: Voiding Method Toilet Toilet # Voids 2 - Exam PHYSICAL EXAMINATION: GENERAL: The patient is alert and oriented x3, not in any acute distress. Well developed, well nourished. HEENT: Pupils are round and equally reacting to light. EOMI. No scleral icterus. No conjunctival pallor. Normocephalic, atraumatic. No pharyngeal erythema. No thyromegaly. CARDIOVASCULAR: S1 and S2 present. No rubs, or gallops. Murmur as mentioned above PULMONARY: Chest is clear to auscultation, no wheezing or crackles. ABDOMEN: Soft, nontender, nondistended, normoactive bowel sounds. No palpable organomegaly. MUSCULOSKELETAL: No joint swelling or deformity. EXTREMITIES: No cyanosis, clubbing, or pedal edema. NEUROLOGICAL: Gross neurological examination did not reveal any focal deficits. SKIN: No rashes. - Labs CBC & Chem 7: 12/04/18 13:25 12/05/18 06:20 Labs: Abnormal Lab Results - Last 24 Hours (Table) 12/04/18 12/04/18 12/05/18 Range/Units 13:25 13:25 00:01 Lymphocytes # 0.3 L (1.0-4.8) k/uL Sodium 135 L (137-145) mmol/L Potassium 3.2 L (3.5-5.1) mmol/L HDL Cholesterol (40-60) mg/dL Influenza Type A RNA Detected H (Not Detectd) 12/05/18 Range/Units 06:20 Lymphocytes # (1.0-4.8) k/uL Sodium 134 L (137-145) mmol/L Potassium 3.4 L (3.5-5.1) mmol/L HDL Cholesterol 63 H (40-60) mg/dL Influenza Type A RNA (Not Detectd) Assessment and Plan Plan: -Syncope : Possibly secondary to influenza viral illness along with some viral gastroenteritis. Patient will continued on IV fluids echocardiogram is pending and EEG is pending patient does have mild hypovolemic hyponatremia -Recent diarrhea: Viral gastroenteritis Systemic inflammatory response syndrome secondary to influenza viral illness -Hypothyroidism continue with methimazole, TSH within normal limits -Gastroesophageal reflux disease -Hyperlipidemia -Hypertension continue present medications. -Glaucoma continue her eyedrops -History of C1 fracture patient will continue her for a soft collar will not hard collar, patient is presently wearing a hard collar until the CAT scan is available of the CAT scan is available will not need hard collar anymore -Depression continue with fluoxetine Moderate dementia possibility of vascular or senile dementia. PT and OT consultation -Patient will need pharmacologic DVT prophylaxis
--- NOTE | 2018-12-05 14:25 | ECHOF ---
Referral Reason:Syncope MEASUREMENTS -------- HEIGHT: 152.4 cm WEIGHT: 66.2 kg BP: RVIDd: 3.2 cm (< 3.3) IVSd: 1.4 cm (0.6 - 1.1) LVIDd: 3.9 cm (3.9 - 5.3) LVPWd: 1.7 cm (0.6 - 1.1) IVSs: 1.6 cm LVIDs: 2.8 cm LVPWs: 1.3 cm LA Diam: 5.1 cm (2.7 - 3.8) LAESV Index (A-L): 48.87 ml/m Ao Diam: 2.8 cm (2.0 - 3.7) LA Diam: 3.9 cm (2.7 - 3.8) MV EXCURSION: 15.618 mm (> 18.000) MV EF SLOPE: 58 mm/s (70 - 150) EPSS: 0.2 cm MV E Michael: 1.48 m/s MV A Michael: 1.38 m/s MV E/A Ratio: 1.07 AV maxP.57 mmHg AV meanP.88 mmHg RAP: 5.00 mmHg RVSP: 57.83 mmHg FINDINGS -------- Sinus rhythm. This was a technically adequate study. The left ventricular size is normal. There is moderate concentric left ventricular hypertrophy. O verall left ventricular systolic function is low-normal with, an EF between 50 - 55 %. The right ventricle is normal in size. The left atrium is markedly dilated. LA is severely dilated >40 ml/m2 The right atrial size is normal. There is no evidence of aortic regurgitation. There is moderate aortic stenosis present. Peak/lucia n gradient across the Aortic Valve is 40.57mmHg / 19.88mmHg. Mild mitral annular calcification present. Moderate mitral regurgitation is present. Moderate geeta ral stenosis. The peak and mean MV gradients are 9.97mmHg 2.58mmHg as measured by doppler. Mild tricuspid regurgitation present. There is moderate pulmonary hypertension. The right ventric ular systolic pressure, as measured by Doppler, is 57.83mmHg. Trace/mild (physiologic) pulmonic regurgitation. The aortic root size is normal. There is no pericardial effusion. CONCLUSIONS -------- 1. The left ventricular size is normal. 2. There is moderate concentric left ventricular hypertrophy. 3. Overall left ventricular systolic function is low-normal with, an EF between 50 - 55 %. 4. The right ventricle is normal in size. 5. The left atrium is markedly dilated. 6. LA is severely dilated >40 ml/m2 7. The right atrial size is normal. 8. There is no evidence of aortic regurgitation. 9. There is moderate aortic stenosis present. 10. Peak/mean gradient across the Aortic Valve is 40.57mmHg / 19.88mmHg. 11. Mild mitral annular calcification present. 12. Moderate mitral regurgitation is present. 13. The peak and mean MV gradients are 9.97mmHg 2.58mmHg as measured by doppler. 14. Moderate mitral stenosis. 15. Mild tricuspid regurgitation present. 16. The right ventricular systolic pressure, as measured by Doppler, is 57.83mmHg. 17. Trace/mild (physiologic) pulmonic regurgitation. 18. The aortic root size is normal. 19. There is no pericardial effusion. [employer]: Matilde Burgess RDCS
[2018-12-05 16:29] LABS: Appearance,Urine Clear (Clear); Bilirubin,Urine Negative (Negative); Blood,Urine Negative (Negative); Color,Urine Yellow; Glucose,Urine (UA) Negative (Negative); Hyaline Casts,Urine 1 /lpf (0-2); Ketones,Urine Negative (Negative); Leukocyte Esterase,Urine Negative (Negative); Mucus,Urine Rare /hpf; Nitrite,Urine Negative (Negative); PH, Urine 6.5 (5.0-8.0); Protein,Urine 2+ (Negative); RBC,Urine 1 /hpf (0-5); Urobilinogen,Urine <2.0 mg/dL (<2.0)
[2018-12-05] MEDS: amLODIPine 5 MG TAB PO SCH (17:51)
[2018-12-05] MEDS: ATORVASTATIN 10 MG TAB PO SCH (21:00)
[2018-12-05] MEDS: LATANOPROST 0.005% OPHTH DROPS 2.5 ML BTL BOTH EYES SCH (21:01)
[2018-12-05 22:08] VITALS: RESP 16
[2018-12-06 02:20] VITALS: PULSE 66
--- NOTE | 2018-12-06 06:40 | XR ---
EXAMINATION TYPE: XR chest 1V DATE OF EXAM: 12/06/2018 CLINICAL HISTORY: Difficulty breathing and CHF progress study. TECHNIQUE: Single AP portable upright view of the chest is obtained. COMPARISON: Chest x-ray from 2 days earlier. FINDINGS: Osseous structures are demineralized. Vertebroplasty lower thoracic spine roughly T10 leve l is present. Cardiac silhouette size is stable and mildly enlarged with atherosclerotic thoracic aor ta. There is chronic parenchymal change bilaterally with persistent small to tiny bilateral pleural e ffusions and lateral left mid lung opacity near overlying EKG leads. IMPRESSION: Overall stable findings, mild cardiomegaly with mild central vascular congestion and sm all to tiny bilateral pleural effusions with focal left lateral midlung edema and/or infiltrate all r edemonstrated.
[2018-12-06 07:31] VITALS: BP 175/77; TEMP 99.4
[2018-12-06 07:46] LABS: HCT 37.3 % (34.0-46.0); HGB 11.4 gm/dL (11.4-16.0); Hypochromasia Slight; MCH 29.1 pg (25.0-35.0); MCHC 30.6 g/dL (31.0-37.0); Mean Platelet Volume 6.6; Platelet Count 386 k/uL (150-450); RBC 3.93 m/uL (3.80-5.40); WBC 7.5 k/uL (3.8-10.6)
[2018-12-06 07:54] LABS: Calcium 8.9 mg/dL (8.4-10.2); Potassium 3.5 mmol/L (3.5-5.1)
[2018-12-06] MEDS: SODIUM CHLORIDE 0.9% 1,000 ML IV SCH (08:21)
[2018-12-06] MEDS: PANTOPRAZOLE 40 MG TABLET PO SCH (08:32)
[2018-12-06] MEDS: ASPIRIN 81 MG PO SCH (08:33)
[2018-12-06] MEDS: FLUoxetine HCL 10 MG CAP PO SCH (08:33)
[2018-12-06] MEDS: ACETAMINOPHEN TAB 325 MG TAB PO SCH (08:33)
[2018-12-06] MEDS: amLODIPine 5 MG TAB PO SCH (08:33)
[2018-12-06] MEDS: LOSARTAN 50 MG TAB PO SCH (08:33)
[2018-12-06] MEDS: ASCORBIC ACID 500 MG TAB PO SCH (08:33)
[2018-12-06] MEDS: CHOLECALCIFEROL 400 UNIT TAB PO SCH (08:34)
[2018-12-06] MEDS: OSELTAMIVIR 75 MG CAP PO SCH (08:34)
[2018-12-06] MEDS: TIMOLOL 0.5% OPHTH DROPS 5 ML BTL LEFT EYE SCH (08:40)
[2018-12-06] MEDS: ARTIFICIAL TEARS-HYPROMELLOSE DROPS 15 ML BTL LEFT EYE SCH (08:41)
[2018-12-06] MEDS: DORZOLAMIDE HCL 2% DROPS 10 ML BTL LEFT EYE SCH (08:41)
[2018-12-06] MEDS: BRIMONIDINE TARTRATE 0.2% DROPS 5 ML BTL LEFT EYE SCH (08:41)
[2018-12-06] MEDS: FLUTICASONE 50MCG/SPRAY NASAL 16GM EA NOSTRIL SCH (08:42)
--- NOTE | 2018-12-06 08:47 | EEG ---
ELECTROENCEPHALOGRAM REPORT PROCEDURE DATE: 12/05/2018. ELECTROENCEPHALOGRAM (EEG) REPORT: TECHNIQUE: A routine 18 channel EEG was performed with video using the 10/20 international placement system. HISTORY: Fall versus syncope. CURRENT MEDICATIONS: Timoptic, Protonix, Nitrostat, Tapazole, Cozaar. STUDY DURATION: 26 minutes. FINDINGS: BACKGROUND: The background activity consisted of unsustained 7 8 hertz rhythmic waveforms symmetrically seen over both posterior quadrants. ACTIVATION: HYPERVENTILATION: Not performed. PHOTIC STIMULATION: Mild symmetric driving seen. SLEEP: Drowsy. ABNORMALITIES: Diffuse synchronous and asynchronous 3-6 hertz slow wave activity was seen. IMPRESSION: Abnormal EEG. The diffuse synchronous and asynchronous theta delta range slowing mentioned above is not epileptiform in nature. These findings indicate mild to moderate diffuse cerebral dysfunction as may be seen in a toxometabolic encephalopathy. Please note the background frequency did not exceed 8 hertz, given the patient's age, this can be considered within normal limits. No seizures were recorded. No epileptiform activity was present. MMODL / IJN: [id number] /
--- NOTE | 2018-12-06 16:44 | P.DS ---
Providers Date of admission: 12/05/18 15:10 Attending physician: Ke Chow Consults: 12/04/18 15:52 Consult Physician Routine Consulting Provider: María Aragon Consult Reason/Comments: syncope, A.S Do you want consulting provider notified?: Yes Primary care physician: Dougie [facility] Course: 88-year-old pleasant female admitted for syncopal episode as an MB low possibility of seizure because of which I'm obtaining EEG EEG results are pending echocardiogram is pending. CT of the head showed severe chronic microvascular ischemic changes may have vascular dementia. Patient mental status is fairly stable and cleared at this time and is at her baseline. Patient started having fever yesterday because of which septic workup is being done and patient is found to have positive influenza patient will be started on IV fluids and will be continued on IV fluids and Tamiflu. Patient's syncope may be secondary to influenza. Patient is mildly hyponatremic possibly hypovolemic hyponatremia expected to improve with fluids. Patient doesn't have any cough or dysuria, did have diarrhea. 12/06/2018 Patient is afebrile clinically doing well will be discharged on Tamiflu. PHYSICAL EXAMINATION: GENERAL: The patient is alert and oriented x3, not in any acute distress. Well developed, well nourished. HEENT: Pupils are round and equally reacting to light. EOMI. No scleral icterus. No conjunctival pallor. Normocephalic, atraumatic. No pharyngeal erythema. No thyromegaly. CARDIOVASCULAR: S1 and S2 present. No rubs, or gallops. Murmur as mentioned above PULMONARY: Chest is clear to auscultation, no wheezing or crackles. ABDOMEN: Soft, nontender, nondistended, normoactive bowel sounds. No palpable organomegaly. MUSCULOSKELETAL: No joint swelling or deformity. EXTREMITIES: No cyanosis, clubbing, or pedal edema. NEUROLOGICAL: Gross neurological examination did not reveal any focal deficits. SKIN: No rashes. Assessment and Plan Plan: -Syncope : Possibly secondary to influenza viral illness along with some viral gastroenteritis. The cardiogram did not show any valvular bronchitis normal ejection fraction. EKG did not show any plenty from focus did show generalized showing slowing consistent with encephalopathy -Recent diarrhea: Viral gastroenteritis Systemic inflammatory response syndrome secondary to influenza viral illness -Hypothyroidism continue with methimazole, TSH within normal limits -Gastroesophageal reflux disease -Hyperlipidemia -Hypertension continue present medications. -Glaucoma continue her eyedrops -History of C1 fracture patient presently is wearing a soft collar -Depression continue with fluoxetine Moderate dementia possibility of vascular or senile dementia. PT and OT consultation -Patient will need pharmacologic DVT prophylaxis Plan - Discharge Summary Discharge Rx Participant: Yes New Discharge Prescriptions: New Losartan [Cozaar] 100 mg PO DAILY tab amLODIPine [Norvasc] 5 mg PO BID #60 tab Oseltamivir [Tamiflu] 75 mg PO BID #10 cap Continue Simvastatin [Zocor] 20 mg PO HS Memantine HCl/Donepezil HCl [Namzaric 28 mg-10 mg Capsule] 1 cap PO DAILY Methimazole 5 mg PO MOWEFR Latanoprost/Pf [Latanoprost 0.005% Eye Drop] 1 drop BOTH EYES HS Fluticasone Nasal Chandler [Flonase Nasal Chandler] 1 spray EA NOSTRIL BID FLUoxetine HCL [PROzac] 10 mg PO DAILY Esomeprazole Magnesium [NexIUM] 40 mg PO DAILY Dorzolamide 2% [Trusopt 2%] 1 drop LEFT EYE BID Brimonidine Tartrate [Alphagan P 0.2% Ophth Soln] 1 drop LEFT EYE BID Lysine [l-Lysine] 500 mg PO DAILY Cyanocobalamin (Vitamin B-12) [Vitamin B-12] 1,000 mg PO DAILY Ascorbic Acid [Vitamin C] 500 mg PO DAILY Cholecalciferol [Vitamin D3] 400 unit PO DAILY Multivitamins, Thera [Multivitamin (formulary)] 1 tab PO DAILY Artificial Tears-Hypromellose [Artificial Tear Drops] 1 drop LEFT EYE BID Sennosides [Senokot] 8.6 mg PO BID Polyethylene Glycol 3350 [Miralax] 17 gram PO DAILY PRN PRN Reason: Constipation Lidocaine/Menthol [Icy Hot 4%-1% Patch] 1 patch TRANSDERM DAILY PRN PRN Reason: LOWER BACK Glucosamine Sulfate 500 mg PO DAILY [place]-3/Dha/Epa/Fish Oil [Fish Oil 500 mg Softgel] 500 mg PO DAILY Folic Acid 1 mg PO DAILY Docusate [Colace] 100 mg PO DAILY Calcium Carbonate [Calcium] 600 mg PO DAILY Aspirin [Coamo Aspirin EC] 81 mg PO DAILY Acetaminophen [Tylenol Arthritis] 1,300 mg PO BID Timolol 0.5% Ophth Soln [Timoptic 0.5% Ophth Soln] 1 drop LEFT EYE BID Discontinued Losartan Potassium 100 mg PO BID amLODIPine [Norvasc] 2.5 mg PO DAILY Discharge Medication List Acetaminophen [Tylenol Arthritis] 1,300 mg PO BID 12/04/18 [History] Artificial Tears-Hypromellose [Artificial Tear Drops] 1 drop LEFT EYE BID 12/04/18 [History] Ascorbic Acid [Vitamin C] 500 mg PO DAILY 12/04/18 [History] Aspirin [Coamo Aspirin EC] 81 mg PO DAILY 12/04/18 [History] Brimonidine Tartrate [Alphagan P 0.2% Ophth Soln] 1 drop LEFT EYE BID 12/04/18 [History] Calcium Carbonate [Calcium] 600 mg PO DAILY 12/04/18 [History] Cholecalciferol [Vitamin D3] 400 unit PO DAILY 12/04/18 [History] Cyanocobalamin (Vitamin B-12) [Vitamin B-12] 1,000 mg PO DAILY 12/04/18 [History] Docusate [Colace] 100 mg PO DAILY 12/04/18 [History] Dorzolamide 2% [Trusopt 2%] 1 drop LEFT EYE BID 12/04/18 [History] Esomeprazole Magnesium [NexIUM] 40 mg PO DAILY 12/04/18 [History] FLUoxetine HCL [PROzac] 10 mg PO DAILY 12/04/18 [History] Fluticasone Nasal Chandler [Flonase Nasal Chandler] 1 spray EA NOSTRIL BID 12/04/18 [History] Folic Acid 1 mg PO DAILY 12/04/18 [History] Glucosamine Sulfate 500 mg PO DAILY 12/04/18 [History] Latanoprost/Pf [Latanoprost 0.005% Eye Drop] 1 drop BOTH EYES HS 12/04/18 [History] Lidocaine/Menthol [Icy Hot 4%-1% Patch] 1 patch TRANSDERM DAILY PRN 12/04/18 [History] Lysine [l-Lysine] 500 mg PO DAILY 12/04/18 [History] Memantine HCl/Donepezil HCl [Namzaric 28 mg-10 mg Capsule] 1 cap PO DAILY 12/04/18 [History] Methimazole 5 mg PO MOWEFR 12/04/18 [History] Multivitamins, Thera [Multivitamin (formulary)] 1 tab PO DAILY 12/04/18 [History] [place]-3/Dha/Epa/Fish Oil [Fish Oil 500 mg Softgel] 500 mg PO DAILY 12/04/18 [History] Polyethylene Glycol 3350 [Miralax] 17 gram PO DAILY PRN 12/04/18 [History] Sennosides [Senokot] 8.6 mg PO BID 12/04/18 [History] Simvastatin [Zocor] 20 mg PO HS 12/04/18 [History] Timolol 0.5% Ophth Soln [Timoptic 0.5% Ophth Soln] 1 drop LEFT EYE BID 12/04/18 [History] Losartan [Cozaar] 100 mg PO DAILY tab 12/06/18 [Rx] Oseltamivir [Tamiflu] 75 mg PO BID #10 cap 12/06/18 [Rx] amLODIPine [Norvasc] 5 mg PO BID #60 tab 12/06/18 [Rx] Follow up Appointment(s)/Referral(s): Dougie Clark III, MD [Primary Care Provider] - 12/09/18 10:00 am (With DALLAS Bullock ) Cassie Ly MD [STAFF PHYSICIAN] - 2 Weeks [facility] Visiting Nurse, [NON-STAFF] - 1-2 Days Patient Instructions/Handouts: Influenza (DC) Discharge Disposition: HOME WITH HOME HEALTH SERVICES
== END 2018-12-06 13:49 | disposition home health service (06) | DRG 866 ==
LOC: EC 13:09 → 1SOBS 16:08 → OBSVTOIN 12-05 15:10 → 4SSUR 12-05 15:31
PROVIDERS: ADMIT Internal Medicine; ATTEND Internal Medicine
DX: J10.2 Influenza due to other identified influenza virus with gastrointestinal manifestations (principal); E87.1 Hypo-osmolality and hyponatremia; E86.0 Dehydration; F03.90 Unspecified dementia, unspecified severity, without behavioral disturbance, psychotic disturbance, mood disturbance, and anxiety; F01.50 Vascular dementia, unspecified severity, without behavioral disturbance, psychotic disturbance, mood disturbance, and anxiety; I35.0 Nonrheumatic aortic (valve) stenosis; E03.9 Hypothyroidism, unspecified; E04.2 Nontoxic multinodular goiter; E78.5 Hyperlipidemia, unspecified; E87.6 Hypokalemia; F32.9 Major depressive disorder, single episode, unspecified; H40.9 Unspecified glaucoma; I10 Essential (primary) hypertension; I44.0 Atrioventricular block, first degree; K21.9 Gastro-esophageal reflux disease without esophagitis; M47.812 Spondylosis without myelopathy or radiculopathy, cervical region; M84.48XD Pathological fracture, other site, subsequent encounter for fracture with routine healing; R55 Syncope and collapse; Z79.82 Long term (current) use of aspirin; Z79.899 Other long term (current) drug therapy; Z85.3 Personal history of malignant neoplasm of breast; Z88.0 Allergy status to penicillin; Z91.048 Other nonmedicinal substance allergy status; W19.XXXA Unspecified fall, initial encounter
CPT/HCPCS: 36415; 70450; 71045; 71046; 72125; 80048; 80053; 80061; 81001; 83735; 84443; 84484; 85025; 85027; 85610; 85730; 87040; 87502; 93005; 93306; 95816; 99285

== ENCOUNTER 2018-12-14 01:47 | Inpatient (IN) | payer MEDICARE ==
[2018-12-14] MEDS: SODIUM CHLORIDE 0.9% 1,000 ML IV STA ×2 (02:24→09:00)
[2018-12-14 02:26] LABS: Basophils % (A) 0 %; Eosinophils # (A) 0.2 k/uL (0-0.7); Eosinophils % (A) 2 %; HCT 32.6 % (34.0-46.0); HGB 10.4 gm/dL (11.4-16.0); Lymphocytes # (A) 1.9 k/uL (1.0-4.8); Lymphocytes % (A) 17 %; MCH 28.4 pg (25.0-35.0); MCHC 31.9 g/dL (31.0-37.0); Mean Platelet Volume 6.4; Monocytes % (A) 9 %; Neutrophils # (A) 8.1 k/uL (1.3-7.7); Neutrophils % (A) 72 %; Platelet Count 529 k/uL (150-450); RBC 3.66 m/uL (3.80-5.40); RDW 13.5 % (11.5-15.5); WBC 11.3 k/uL (3.8-10.6)
[2018-12-14] MEDS ORDERED: NALOXONE 0.4 MG/ML 1 ML VIAL IV PRN ×2 (02:27→15:49)
[2018-12-14] MEDS ORDERED: PANTOPRAZOLE 40 MG/10 ML VIAL IVP ONE (02:27)
--- NOTE | 2018-12-14 02:28 | ED ---
GI Bleed HPI - General Chief complaint: GI Bleed Stated complaint: GI Bleed Source: patient, family Mode of arrival: ambulatory Limitations: no limitations - History of Present Illness Initial comments: Janice is a pleasant 88-year-old female who lives at home with her daughter. She is brought to the emergency department today for evaluation of blood in her diaper. Daughter reports that when she went to change her mother this evening she noticed she had dark bloody stool and noted blood leaking down the patient's leg and upper back. She became concerned about the amount of blood. Patient denies any abdominal pain nausea, vomiting or lightheadedness. Patient was admitted to the hospital last week for influenza but had improved from that. She did have a mild cough still but that is not worsening. She's had no fevers chills, chest pain, body aches or other flulike illness. She does report she's been very fatigued since returning home and spent most of the past week just resting in her chair. Patient's daughter reports that the patient had a colonoscopy a few years ago with no acute findings she has no history of diverticulosis diverticulitis or GI bleed in the past. - Related Data Home Medications Medication Instructions Recorded Confirmed Acetaminophen [Tylenol Arthritis] 1,300 mg PO BID 12/04/18 12/04/18 Artificial Tears-Hypromellose 1 drop LEFT EYE BID 12/04/18 12/04/18 [Artificial Tear Drops] Ascorbic Acid [Vitamin C] 500 mg PO DAILY 12/04/18 12/04/18 Aspirin [Imperial Aspirin EC] 81 mg PO DAILY 12/04/18 12/04/18 Brimonidine Tartrate [Alphagan P 1 drop LEFT EYE BID 12/04/18 12/04/18 0.2% Ophth Soln] Calcium Carbonate [Calcium] 600 mg PO DAILY 12/04/18 12/04/18 Cholecalciferol [Vitamin D3] 400 unit PO DAILY 12/04/18 12/04/18 Cyanocobalamin (Vitamin B-12) 1,000 mg PO DAILY 12/04/18 12/04/18 [Vitamin B-12] Docusate [Colace] 100 mg PO DAILY 12/04/18 12/04/18 Dorzolamide 2% [Trusopt 2%] 1 drop LEFT EYE BID 12/04/18 12/04/18 Esomeprazole Magnesium [NexIUM] 40 mg PO DAILY 12/04/18 12/04/18 FLUoxetine HCL [PROzac] 10 mg PO DAILY 12/04/18 12/04/18 Fluticasone Nasal [place] [Flonase 1 spray EA NOSTRIL BID 12/04/18 12/04/18 Nasal Clements] Folic Acid 1 mg PO DAILY 12/04/18 12/04/18 Glucosamine Sulfate 500 mg PO DAILY 12/04/18 12/04/18 Latanoprost/Pf [Latanoprost 0.005% 1 drop BOTH EYES HS 12/04/18 12/04/18 Eye Drop] Lidocaine/Menthol [Icy Hot 4%-1% 1 patch TRANSDERM DAILY PRN 12/04/18 12/04/18 Patch] Lysine [l-Lysine] 500 mg PO DAILY 12/04/18 12/04/18 Memantine HCl/Donepezil HCl 1 cap PO DAILY 12/04/18 12/04/18 [Namzaric 28 mg-10 mg Capsule] Methimazole 5 mg PO MOWEFR 12/04/18 12/04/18 Multivitamins, Thera [Multivitamin 1 tab PO DAILY 12/04/18 12/04/18 (formulary)] Mallie-3/Dha/Epa/Fish Oil [Fish Oil 500 mg PO DAILY 12/04/18 12/04/18 500 mg Softgel] Polyethylene Glycol 3350 [Miralax] 17 gram PO DAILY PRN 12/04/18 12/04/18 Sennosides [Senokot] 8.6 mg PO BID 12/04/18 12/04/18 Simvastatin [Zocor] 20 mg PO HS 12/04/18 12/04/18 Timolol 0.5% Ophth Soln [Timoptic 1 drop LEFT EYE BID 12/04/18 12/04/18 0.5% Ophth Soln] Previous Rx's Medication Instructions Recorded Losartan [Cozaar] 100 mg PO DAILY tab 12/06/18 Oseltamivir [Tamiflu] 75 mg PO BID #10 cap 12/06/18 amLODIPine [Norvasc] 5 mg PO BID #60 tab 12/06/18 Allergies Allergy/AdvReac Type Severity Reaction Status Date / Time adhesive tape Allergy Unknown Verified 03/30/19 01:55 naproxen [From Aleve] Allergy Nausea & Verified 12/14/18 01:55 Vomiting & Diarrhea Penicillins Allergy Unknown Verified 12/14/18 01:55 Review of Systems ROS Statement: Those systems with pertinent positive or pertinent negative responses have been documented in the HPI. ROS Other: All systems not noted in ROS Statement are negative. Past Medical History Past Medical History: Cancer, GERD/Reflux, Hyperlipidemia, Hypertension Additional Past Medical History / Comment(s): C-1 fx, breast cancer History of Any Multi-Drug Resistant Organisms: None Reported Past Surgical History: Orthopedic Surgery, Tonsillectomy Additional Past Surgical History / Comment(s): (L) breast biopsy, BL knee replacements Past Anesthesia/Blood Transfusion Reactions: No Reported Reaction Past Psychological History: No Psychological Hx Reported Smoking Status: Never smoker Past Alcohol Use History: None Reported General Exam - General Exam Comments Initial Comments: Physical Exam GENERAL: Pale, chronically ill-appearing elderly female HENT: Normocephalic, Atraumatic. EYES: Conjunctival pallor PULMONARY: Unlabored respirations. No audible rales rhonchi or wheezing was noted. CARDIOVASCULAR: There is a regular rate and rhythm without any murmurs gallops or rubs. ABDOMEN: Soft and nontender with normal bowel sounds. SKIN: Skin is pale, clear with no lesions or rashes and otherwise unremarkable. Scar consistent with left-sided mastectomy : Normal external genitalia Rectal exam with external hemorrhoids with no active bleeding, gross melena is noted on exam NEUROLOGIC: Patient is alert and oriented x3. Moving all extremities spontaneously MUSCULOSKELETAL: Normal extremities with adequate strength and full range of motion. No lower extremity swelling or edema. No calf tenderness. PSYCHIATRIC: Normal psychiatric evaluation. Limitations: no limitations Limitations: no limitations Course Vital Signs 12/14/18 01:50 Temperature 98.5 F Pulse Rate 55 L Respiratory 16 Rate Blood Pressure 128/65 O2 Sat by Pulse 97 Oximetry Medical Decision Making - Medical Decision Making Patient was seen and evaluated immediately upon arrival to the emergency department this is an elderly female recent admission the hospital for influenza now presenting with melanotic stools next sign physical exam does confirm melanotic stools patient appears mildly pale but she is hemodynamically stable Labs and imaging were ordered for stool clot was positive Patient's hemoglobin is 10.4 down from 11.4 last week Patient's creatinine is mildly elevated and she has hyponatremia this is likely due to decreased by mouth intake over the past week for not feeling well. At this time I will plan to admit the patient for GI bleed, acute kidney injury, hyponatremia. I discussed the plan for admission with the patient and her daughter bedside. Patient did confirm that she would consent to blood transfusion if needed she would consent to IV medications, fluids however she would like to be DNA R she would not want any resuscitative measures were she to decompensate. - Lab Data Result diagrams: 12/14/18 02:10 12/14/18 02:10 Lab Results 12/14/18 12/14/18 12/14/18 Range/Units 02:10 02:10 02:10 WBC 11.3 H (3.8-10.6) k/uL RBC 3.66 L (3.80-5.40) m/uL Hgb 10.4 L (11.4-16.0) gm/dL Hct 32.6 L (34.0-46.0) % MCV 88.9 D (80.0-100.0) fL MCH 28.4 (25.0-35.0) pg MCHC 31.9 (31.0-37.0) g/dL RDW 13.5 (11.5-15.5) % Plt Count 529 H (150-450) k/uL Neutrophils % 72 % Lymphocytes % 17 % Monocytes % 9 % Eosinophils % 2 % Basophils % 0 % Neutrophils # 8.1 H (1.3-7.7) k/uL Lymphocytes # 1.9 (1.0-4.8) k/uL Monocytes # 1.0 (0-1.0) k/uL Eosinophils # 0.2 (0-0.7) k/uL Basophils # 0.0 (0-0.2) k/uL Sodium 126 L (137-145) mmol/L Potassium 3.9 (3.5-5.1) mmol/L Chloride 93 L (98-107) mmol/L Carbon Dioxide 25 (22-30) mmol/L Anion Gap 8 mmol/L BUN 19 H (7-17) mg/dL Creatinine 1.12 H (0.52-1.04) mg/dL Est GFR (CKD-EPI)AfAm 51 (>60 ml/min/1.73 sqM) Est GFR (CKD-EPI)NonAf 44 (>60 ml/min/1.73 sqM) Glucose 52 L (74-99) mg/dL Plasma Lactic Acid Roberto 1.0 (0.7-2.0) mmol/L Calcium 9.2 (8.4-10.2) mg/dL Total Bilirubin 0.4 (0.2-1.3) mg/dL AST 28 (14-36) U/L ALT 26 (9-52) U/L Alkaline Phosphatase 62 (38-126) U/L Total Protein 5.7 L (6.3-8.2) g/dL Albumin 3.0 L (3.5-5.0) g/dL Stool Occult Blood (Negative) 12/14/18 Range/Units 02:25 WBC (3.8-10.6) k/uL RBC (3.80-5.40) m/uL Hgb (11.4-16.0) gm/dL Hct (34.0-46.0) % MCV (80.0-100.0) fL MCH (25.0-35.0) pg MCHC (31.0-37.0) g/dL RDW (11.5-15.5) % Plt Count (150-450) k/uL Neutrophils % % Lymphocytes % % Monocytes % % Eosinophils % % Basophils % % Neutrophils # (1.3-7.7) k/uL Lymphocytes # (1.0-4.8) k/uL Monocytes # (0-1.0) k/uL Eosinophils # (0-0.7) k/uL Basophils # (0-0.2) k/uL Sodium (137-145) mmol/L Potassium (3.5-5.1) mmol/L Chloride (98-107) mmol/L Carbon Dioxide (22-30) mmol/L Anion Gap mmol/L BUN (7-17) mg/dL Creatinine (0.52-1.04) mg/dL Est GFR (CKD-EPI)AfAm (>60 ml/min/1.73 sqM) Est GFR (CKD-EPI)NonAf (>60 ml/min/1.73 sqM) Glucose (74-99) mg/dL Plasma Lactic Acid Roberto (0.7-2.0) mmol/L Calcium (8.4-10.2) mg/dL Total Bilirubin (0.2-1.3) mg/dL AST (14-36) U/L ALT (9-52) U/L Alkaline Phosphatase (38-126) U/L Total Protein (6.3-8.2) g/dL Albumin (3.5-5.0) g/dL Stool Occult Blood Positive H (Negative) Disposition Clinical Impression: Melena, Hyponatremia Disposition: ADMITTED IP TO THIS [facility] Condition: Serious Is patient prescribed a controlled substance at d/c from ED?: No Referrals: Dougie Clark III, MD [Primary Care Provider] - 1-2 days
[2018-12-14 02:35] LABS: Calcium 9.2 mg/dL (8.4-10.2); Potassium 3.9 mmol/L (3.5-5.1); Total Bilirubin 0.4 mg/dL (0.2-1.3); Total Protein 5.7 g/dL (6.3-8.2)
[2018-12-14 02:37] LABS: MCV 88.9 fL (80.0-100.0)
[2018-12-14 02:43] LABS: INR 0.9 (<1.2); Partial Thromboplastin Time 27.9 sec (22.0-30.0); Prothrombin Time 9.7 sec (9.0-12.0)
[2018-12-14] MEDS ORDERED: DEXTROSE 50%-WATER 50 ML SYRINGE IVP STA (03:17)
[2018-12-14 03:21] LABS: Glucose,Whole Blood 74 mg/dL (75-99)
[2018-12-14 05:17] LABS: Glucose,Whole Blood 85 mg/dL (75-99)
[2018-12-14] MEDS ORDERED: SODIUM CHLORIDE 0.9% 1,000 ML IV SCH ×2 (06:00→08:15)
[2018-12-14] MEDS ORDERED: ARTIFICIAL TEARS-HYPROMELLOSE DROPS 15 ML BTL LEFT EYE PRN (06:00)
[2018-12-14 06:14] LABS: Eosinophils # (A) 0.1 k/uL (0-0.7); Hypochromasia Slight
[2018-12-14 06:16] LABS: Basophils % (A) 0 %; Eosinophils % (A) 1 %; HCT 28.1 % (34.0-46.0); HGB 9.3 gm/dL (11.4-16.0); Lymphocytes # (A) 1.3 k/uL (1.0-4.8); Lymphocytes % (A) 11 %; MCH 30.4 pg (25.0-35.0); MCHC 33.3 g/dL (31.0-37.0); MCV 91.3 fL (80.0-100.0); Mean Platelet Volume 6.8; Monocytes # (A) 0.9 k/uL (0-1.0); Monocytes % (A) 8 %; Neutrophils % (A) 78 %; Platelet Count 501 k/uL (150-450); RBC 3.08 m/uL (3.80-5.40); RDW 13.6 % (11.5-15.5); WBC 11.6 k/uL (3.8-10.6)
[2018-12-14] MEDS ORDERED: ONDANSETRON 4 MG/2 ML VIAL IVP PRN (06:26)
[2018-12-14 07:43] LABS: Glucose,Whole Blood 76 mg/dL (75-99)
[2018-12-14] MEDS: PANTOPRAZOLE 40 MG/10 ML VIAL IVP SCH ×2 (09:01→20:40)
[2018-12-14] MEDS: amLODIPine 5 MG TAB PO SCH ×2 (09:02→20:40)
[2018-12-14] MEDS: LOSARTAN 50 MG TAB PO SCH (09:02)
--- NOTE | 2018-12-14 09:28 | P.HPIM ---
History of Present Illness This is a pleasant 88 years old female with past medical history of hypertension, hyperlipidemia, syncope, GERD, breast cancer,history of C1 fracture, wearing a soft collar, depression and fluoxetine, hypothyroidism. This time she presents with blood per rectum, patient at baseline she walks with a walker for the last 2 years since she fell and broke her cervical spine. She was his baby aspirin for heart disease but she does not have a paperhanger assistant. Yesterday patient daughter noticed dark bloody stool however patient denies diarrhea no abdominal pain no nausea vomiting, patient denies chest pain or dyspnea however she has some dry cough. vital signs stable and hemoglobin 9.3. Review of Systems CONSTITUTIONAL: No fever, no malaise, no fatigue. HEENT: No recent visual problems or hearing problems. Denied any sore throat. CARDIOVASCULAR: No orthopnea, PND, no palpitations, no syncope. PULMONARY: No shortness of breath, no cough, no hemoptysis. GASTROINTESTINAL: No diarrhea, no nausea, no vomiting, no abdominal pain. Normoactive bowel sounds. NEUROLOGICAL: No headaches, no weakness, no numbness. HEMATOLOGICAL: Denies any bleeding or petechiae. GENITOURINARY: Denies any burning micturition, frequency, or urgency. MUSCULOSKELETAL/RHEUMATOLOGICAL: Denies any joint pain, swelling, or any muscle pain. ENDOCRINE: Denies any polyuria or polydipsia. Past Medical History Past Medical History: Cancer, GERD/Reflux, Hyperlipidemia, Hypertension, Syncope Additional Past Medical History / Comment(s): C-1 fx when patient is up and moving she is supposed to wear a neck brace, ok to not have neck brace on while sleeping, breast cancer left, no bp no iv on left arm, recent influenza 2019, memory loss, confusion, leiden factor 5 homogenous History of Any Multi-Drug Resistant Organisms: None Reported Past Surgical History: Orthopedic Surgery, Tonsillectomy Additional Past Surgical History / Comment(s): (L) breast biopsy, BL knee replac ements Past Anesthesia/Blood Transfusion Reactions: No Reported Reaction Past Psychological History: No Psychological Hx Reported Smoking Status: Never smoker Past Alcohol Use History: None Reported Past Drug Use History: None Reported - Past Family History Sister(s) Family Medical History: Cancer Additional Family Medical History / Comment(s): brain cancer, Brother(s) Family Medical History: Cancer Additional Family Medical History / Comment(s): lung cancer Medications and Allergies Home Medications Medication Instructions Recorded Confirmed Type Acetaminophen [Tylenol Arthritis] 1,300 mg PO BID 12/04/18 12/14/18 History Artificial Tears-Hypromellose 1 drop LEFT EYE BID PRN 12/04/18 12/14/18 History [Artificial Tear Drops] Ascorbic Acid [Vitamin C] 500 mg PO DAILY 12/04/18 12/14/18 History Aspirin [[place] Aspirin EC] 81 mg PO DAILY 12/04/18 12/14/18 History Brimonidine Tartrate [Alphagan P 1 drop LEFT EYE BID 12/04/18 12/14/18 History 0.2% Ophth Soln] Calcium Carbonate [Calcium] 600 mg PO DAILY 12/04/18 12/14/18 History Cholecalciferol [Vitamin D3] 400 unit PO DAILY 12/04/18 12/14/18 History Cyanocobalamin (Vitamin B-12) 1,000 mg PO DAILY 12/04/18 12/14/18 History [Vitamin B-12] Dorzolamide 2% [Trusopt 2%] 1 drop LEFT EYE BID 12/04/18 12/14/18 History Esomeprazole Magnesium [NexIUM] 40 mg PO DAILY 12/04/18 12/14/18 History FLUoxetine HCL [PROzac] 10 mg PO DAILY 12/04/18 12/14/18 History Fluticasone Nasal [place] [Flonase 1 spray EA NOSTRIL BID 12/04/18 12/14/18 History Nasal [place]] Folic Acid 1 mg PO DAILY 12/04/18 12/14/18 History Glucosamine Sulfate 500 mg PO DAILY 12/04/18 12/14/18 History Latanoprost/Pf [Latanoprost 0.005% 1 drop BOTH EYES HS 12/04/18 12/14/18 History Eye Drop] Lidocaine/Menthol [Icy Hot 4%-1% 1 patch TRANSDERM DAILY PRN 12/04/18 12/14/18 History Patch] Lysine [l-Lysine] 500 mg PO DAILY 12/04/18 12/14/18 History Memantine HCl/Donepezil HCl 1 cap PO DAILY 12/04/18 12/14/18 History [Namzaric 28 mg-10 mg Capsule] Methimazole 5 mg PO MOWEFR 12/04/18 12/14/18 History Multivitamins, Thera [Multivitamin 1 tab PO DAILY 12/04/18 12/14/18 History (formulary)] [place]-3/Dha/Epa/Fish Oil [Fish Oil 1 cap PO DAILY 12/04/18 12/14/18 History 500 mg Softgel] Simvastatin [Zocor] 20 mg PO HS 12/04/18 12/14/18 History Timolol 0.5% Ophth Soln [Timoptic 1 drop LEFT EYE BID 12/04/18 12/14/18 History 0.5% Ophth Soln] Losartan [Cozaar] 100 mg PO DAILY tab 12/06/18 12/14/18 Rx amLODIPine [Norvasc] 5 mg PO BID #60 tab 12/06/18 12/14/18 Rx Loratadine [Claritin] 10 mg PO DAILY 12/14/18 12/14/18 History guaiFENesin-DM 100-10MG/5ML 10 ml PO Q4H PRN 12/14/18 12/14/18 History [Robitussin DM] Allergies Allergy/AdvReac Type Severity Reaction Status Date / Time adhesive tape Allergy Unknown Verified 12/14/18 08:37 naproxen [From Aleve] Allergy Nausea & Verified 12/14/18 08:37 Vomiting & Diarrhea Penicillins Allergy Unknown Verified 12/14/18 08:37 Physical Exam Vitals: Vital Signs Temp Pulse Pulse Resp BP BP Pulse Ox 12/14/18 09:00 68 16 127/60 99 12/14/18 08:30 63 12 99 12/14/18 08:00 98.0 F 59 L 16 111/53 94 L 12/14/18 07:39 63 14 126/62 96 12/14/18 05:18 98.5 F 69 18 149/63 97 12/14/18 04:19 97.5 F L 64 16 142/78 94 L 12/14/18 03:05 98 F 58 L 18 113/43 95 12/14/18 01:50 98.5 F 55 L 16 128/65 97 Intake and Output 12/13/18 12/14/18 12/14/18 22:59 06:59 14:59 Intake Total 375 Balance 375 Intake: IV 100 Sodium Chloride 0.9% 1, 100 000 ml @ 100 mls/hr IV . Q10H MICHELE Rx#:[id number] Intake, IV Titration 275 Amount Sodium Chloride 0.9% 1, 200 000 ml @ 100 mls/hr IV . Q10H MICHELE Rx#:[id number] Sodium Chloride 0.9% 1, 75 000 ml @ 75 mls/hr IV . [id number] MICHELE Rx#:[id number] Other: Voiding Method Diaper Incontinent # Voids 1 0 # Bowel Movements 1 0 Weight 66.224 kg GENERAL: The patient is alert and oriented x3, not in any acute distress. Well developed, well nourished. HEENT: Pupils are round and equally reacting to light. EOMI. No scleral icterus. No conjunctival pallor. Normocephalic, atraumatic. No pharyngeal erythema. No thyromegaly. CARDIOVASCULAR: S1 and S2 present. No murmurs, rubs, or gallops. PULMONARY: Chest is clear to auscultation, no wheezing or crackles. ABDOMEN: Soft, nontender, nondistended, normoactive bowel sounds. No palpable organomegaly. MUSCULOSKELETAL: No joint swelling or deformity. EXTREMITIES: No cyanosis, clubbing, or pedal edema. NEUROLOGICAL: Gross neurological examination did not reveal any focal deficits. SKIN: No rashes. Results CBC & Chem 7: 12/14/18 05:57 12/14/18 02:10 Labs: Abnormal Lab Results - Last 24 Hours (Table) 12/14/18 12/14/18 12/14/18 Range/Units 02:10 02:10 02:10 WBC 11.3 H (3.8-10.6) k/uL RBC 3.66 L (3.80-5.40) m/uL Hgb 10.4 L (11.4-16.0) gm/dL Hct 32.6 L (34.0-46.0) % Plt Count 529 H (150-450) k/uL Neutrophils # 8.1 H (1.3-7.7) k/uL Sodium 126 L (137-145) mmol/L Chloride 93 L (98-107) mmol/L BUN 19 H (7-17) mg/dL Creatinine 1.12 H (0.52-1.04) mg/dL Glucose 52 L (74-99) mg/dL POC Glucose (mg/dL) (75-99) mg/dL Total Protein 5.7 L (6.3-8.2) g/dL Albumin 3.0 L (3.5-5.0) g/dL Stool Occult Blood (Negative) Crossmatch See Detail 12/14/18 12/14/18 12/14/18 Range/Units 02:25 03:18 05:57 WBC 11.6 H (3.8-10.6) k/uL RBC 3.08 L (3.80-5.40) m/uL Hgb 9.3 L (11.4-16.0) gm/dL Hct 28.1 L (34.0-46.0) % Plt Count 501 H (150-450) k/uL Neutrophils # 9.0 H (1.3-7.7) k/uL Sodium (137-145) mmol/L Chloride (98-107) mmol/L BUN (7-17) mg/dL Creatinine (0.52-1.04) mg/dL Glucose (74-99) mg/dL POC Glucose (mg/dL) 74 L (75-99) mg/dL Total Protein (6.3-8.2) g/dL Albumin (3.5-5.0) g/dL Stool Occult Blood Positive H (Negative) Crossmatch Thrombosis Risk Factor Assmnt - Choose All That Apply Any of the Below Risk Factors Present?: Yes Each Factor Represents 1 point: Medical pt on bed rest, Obesity (BMI >25) Other Risk Factors: Yes Each Risk Factor Represents 2 Points: Patient confined to bed Each Risk Factor Represents 3 Points: Positive Factor V Leiden, Age 75 years or older Other congenital or acquired thrombophilia - If yes, enter type in comment: No Thrombosis Risk Factor Assessment Total Risk Factor Score: 10 Thrombosis Risk Factor Assessment Level: High Risk Assessment and Plan Assessment: private blood per stool, GI bleed History of C1 fracture, wearing soft collar History of GERD recentHistory of syncope Hypertension Hyperlipidemia Hypothyroidism History of depression Plan: this is a pleasant 88 years old female who presents with right blood per stool and GI bleed. GI team has been consulted. We will check more blood tests, monitor hemoglobin, anemia workup,Protonix twice a day Labs and medication were reviewed.. Continue same treatment. Continue with symptomatic treatment. Resume home medication. Monitor lytes and vitals. DVT and GI prophylaxis. Further recommendations of the clinical course of the patient DVT prophylaxis: no hepar in view of GI bleed GI Prophylaxis: ppi PT/OT: Pending Prognosis is guarded
[2018-12-14 09:40] LABS: Basophils # (A) 0.1 k/uL (0-0.2); Basophils % (A) 1 %; Eosinophils # (A) 0.1 k/uL (0-0.7); Eosinophils % (A) 1 %; HCT 26.7 % (34.0-46.0); HGB 8.4 gm/dL (11.4-16.0); Hypochromasia Slight; Lymphocytes # (A) 1.1 k/uL (1.0-4.8); Lymphocytes % (A) 11 %; MCHC 31.6 g/dL (31.0-37.0); Mean Platelet Volume 7.1; Monocytes # (A) 0.9 k/uL (0-1.0); Monocytes % (A) 9 %; Neutrophils # (A) 7.6 k/uL (1.3-7.7); Neutrophils % (A) 76 %; Platelet Count 458 k/uL (150-450); RDW 13.5 % (11.5-15.5)
[2018-12-14] MEDS: TIMOLOL 0.5% OPHTH DROPS 5 ML BTL LEFT EYE SCH ×2 (11:34→20:43)
[2018-12-14] MEDS: BRIMONIDINE TARTRATE 0.2% DROPS 5 ML BTL LEFT EYE SCH ×2 (11:34→20:41)
[2018-12-14] MEDS: DORZOLAMIDE HCL 2% DROPS 10 ML BTL LEFT EYE SCH ×2 (11:34→20:42)
[2018-12-14 11:54] LABS: Glucose,Whole Blood 72 mg/dL (75-99)
--- NOTE | 2018-12-14 12:03 | CONS ---
CONSULTATION DATE OF SERVICE: December 14, 2018. REQUESTING PHYSICIAN: Dr. Clark. REASON FOR CONSULTATION: Acute GI bleed. The patient is an 88 -year-old pleasant white female came into the emergency room this morning after having several episodes of black tarry stools for the last 24 hours duration. She had at least several episodes and came in the emergency room this morning and noted to have a hemoglobin of 8.1 and hence transferred to the intensive care unit. Since being here, she has been doing well. She denies any abdominal pain. No associated nausea, vomiting. She never had any GI bleed in the past. She has been taking baby aspirin for coronary artery disease. She reports no recent NSAID use. No prior history of peptic ulcer disease. PAST MEDICAL HISTORY IS SIGNIFICANT FOR: Hypertension, hyperlipidemia, gastroesophageal reflux disease, degenerative joint disease. PAST SURGICAL HISTORY: Tonsillectomy, surgery. MEDICATIONS: At home include Tylenol, Artificial Tears, vitamin C, aspirin, calcium carbonate, vitamin D3, vitamin B12, Nexium, Prozac, folic acid, multivitamin, Norvasc, Cozaar, Claritin, Zocor, methimazole. ALLERGIES: PENICILLIN. NAPROXEN. SOCIAL HISTORY: No smoking or alcohol use. FAMILY HISTORY: Unremarkable. REVIEW OF SYSTEMS: CARDIOPULMONARY: No chest pain or shortness of breath. Genitourinary: No dysuria or hematuria. Musculoskeletal unremarkable. Skin unremarkable. Endocrine unremarkable. Psychiatric: Unremarkable. Neurological: Unremarkable. ENT/VISION: Unremarkable. Constitutional: No recent weight loss. No fever, chills or night sweats. EXAMINATION: Blood pressure 149/63, pulse 89, respiratory rate 16, temperature 98.5. HEENT examination: Unremarkable. Conjunctivae pink. Sclerae anicteric. Oral cavity no lesions. Neck no jugular venous distention or lymph node enlargement. Chest was clear to auscultation. HEART: Regular rate and rhythm. ABDOMEN: Soft. Bowel sounds are positive. No organomegaly. Extremities no pedal edema. Skin no rashes. NEUROLOGIC: Alert and oriented x3. No focal deficits. LABS: Hemoglobin was 10.4 yesterday, today it is 8.4, WBC 10, platelets 458, BUN 19, creatinine 1.12. Stool occult blood was positive. IMPRESSION: Acute gastrointestinal bleed, possibly upper in etiology. The patient had multiple episodes of black tarry stools for the last 24 hours duration she dropped hemoglobin 10.4 to 8.4 g/dL. Clinically and hemodynamically, she still looks stable. She has been on aspirin which currently has been on hold. RECOMMENDATIONS: 1. Clear liquid diet. 2. IV Protonix 40 mg q.12 hours. 3. CBC every 12 hours and transfuse if the hemoglobin is less than 8. 4. We will proceed with an upper endoscopy tomorrow. Discussed with the patient risks, benefits, and complications and she is agreeable to it. Thank you for this consultation. MMGERAL / IJN: [id number] /
[2018-12-14 12:55] LABS: Basophils % (A) 0 %; Eosinophils # (A) 0.1 k/uL (0-0.7); Eosinophils % (A) 1 %; HCT 24.9 % (34.0-46.0); HGB 8.1 gm/dL (11.4-16.0); Hypochromasia Slight; Lymphocytes # (A) 1.5 k/uL (1.0-4.8); Lymphocytes % (A) 14 %; MCH 30.3 pg (25.0-35.0); MCHC 32.6 g/dL (31.0-37.0); Monocytes # (A) 0.7 k/uL (0-1.0); Monocytes % (A) 7 %; Neutrophils # (A) 8.3 k/uL (1.3-7.7); Neutrophils % (A) 76 %; Platelet Count 462 k/uL (150-450); RBC 2.67 m/uL (3.80-5.40); RDW 13.5 % (11.5-15.5); WBC 10.9 k/uL (3.8-10.6)
--- NOTE | 2018-12-14 13:25 | P.CNPUL ---
History of Present Illness Consult date: 12/14/18 Requesting physician: Matthew Araujo Reason for consult: other (GI bleeding, in ICU) Chief complaint: Rectal bleeding History of present illness: This is an 88-year-old female with history of hypertension, hyperlipidemia, GERD, osteoarthritis and multiple orthopedic surgeries, patient presented to the ER last night accompanied by her daughter who was concerned that her mother has been noticing some dark bloody stools, and noted some bright red blood down the patient leg and upper back. Daughter became concerned, hence she was brought into the ER. The patient herself noted bloody stools, she had no abdominal pain, no nausea, no vomiting, and no hematemesis. Patient had no chest pain, no cough no wheezing no fever no chills no hemoptysis. She did have some vague fatigue and weakness most of the past week. According to the daughter the patient had her colonoscopy about 3 years ago. However the patient when asked could not tell when was the last colonoscopy. No previous history of diverticulosis. No previous history of GI bleeding. Initial hemoglobin on presentation was 10.4, went down to 9.3, and early this morning was noted to be 8.1. Patient was transferred to the ICU, gastroenterology was consulted, and I was also consulted to evaluate the patient in the intensive care unit. During my evaluation, the patient was basically asymptomatic. And she was hemodynamically stable. Patient is already on Protonix, and she will be seen by gastroenterology for possible EGD and/or colonoscopy in the next 24-48 hours. So far, the patient did not require any transfusion. Review of Systems CONSTITUTIONAL: No fever, no malaise, no fatigue. HEENT: No recent visual problems or hearing problems. Denied any sore throat. CARDIOVASCULAR: No orthopnea, PND, no palpitations, no syncope. PULMONARY: No shortness of breath, no cough, no hemoptysis. GASTROINTESTINAL: No diarrhea, no nausea, no vomiting, no abdominal pain. Normoactive bowel sounds. NEUROLOGICAL: No headaches, no weakness, no numbness. HEMATOLOGICAL: Denies any bleeding or petechiae. GENITOURINARY: Denies any burning micturition, frequency, or urgency. MUSCULOSKELETAL/RHEUMATOLOGICAL: Denies any joint pain, swelling, or any muscle pain. ENDOCRINE: Denies any polyuria or polydipsia. Past Medical History Past Medical History: Cancer, GERD/Reflux, Hyperlipidemia, Hypertension, Syncope Additional Past Medical History / Comment(s): C-1 fx when patient is up and moving she is supposed to wear a neck brace, ok to not have neck brace on while sleeping, breast cancer left, no bp no iv on left arm, recent influenza 2019, memory loss, confusion, leiden factor 5 homogenous History of Any Multi-Drug Resistant Organisms: None Reported Past Surgical History: Orthopedic Surgery, Tonsillectomy Additional Past Surgical History / Comment(s): (L) breast biopsy, BL knee replacements Past Anesthesia/Blood Transfusion Reactions: No Reported Reaction Past Psychological History: No Psychological Hx Reported Smoking Status: Never smoker Past Alcohol Use History: None Reported Past Drug Use History: None Reported - Past Family History Sister(s) Family Medical History: Cancer Additional Family Medical History / Comment(s): brain cancer, Brother(s) Family Medical History: Cancer Additional Family Medical History / Comment(s): lung cancer Medications and Allergies Home Medications Medication Instructions Recorded Confirmed Type Acetaminophen [Tylenol Arthritis] 1,300 mg PO BID 12/04/18 12/14/18 History Artificial Tears-Hypromellose 1 drop LEFT EYE BID PRN 12/04/18 12/14/18 History [Artificial Tear Drops] Ascorbic Acid [Vitamin C] 500 mg PO DAILY 12/04/18 12/14/18 History Aspirin [[place] Aspirin EC] 81 mg PO DAILY 12/04/18 12/14/18 History Brimonidine Tartrate [Alphagan P 1 drop LEFT EYE BID 12/04/18 12/14/18 History 0.2% Ophth Soln] Calcium Carbonate [Calcium] 600 mg PO DAILY 12/04/18 12/14/18 History Cholecalciferol [Vitamin D3] 400 unit PO DAILY 12/04/18 12/14/18 History Cyanocobalamin (Vitamin B-12) 1,000 mg PO DAILY 12/04/18 12/14/18 History [Vitamin B-12] Dorzolamide 2% [Trusopt 2%] 1 drop LEFT EYE BID 12/04/18 12/14/18 History Esomeprazole Magnesium [NexIUM] 40 mg PO DAILY 12/04/18 12/14/18 History FLUoxetine HCL [PROzac] 10 mg PO DAILY 12/04/18 12/14/18 History Fluticasone Nasal [place] [Flonase 1 spray EA NOSTRIL BID 12/04/18 12/14/18 History Nasal [place]] Folic Acid 1 mg PO DAILY 12/04/18 12/14/18 History Glucosamine Sulfate 500 mg PO DAILY 12/04/18 12/14/18 History Latanoprost/Pf [Latanoprost 0.005% 1 drop BOTH EYES HS 12/04/18 12/14/18 History Eye Drop] Lidocaine/Menthol [Icy Hot 4%-1% 1 patch TRANSDERM DAILY PRN 12/04/18 12/14/18 History Patch] Lysine [l-Lysine] 500 mg PO DAILY 12/04/18 12/14/18 History Memantine HCl/Donepezil HCl 1 cap PO DAILY 12/04/18 12/14/18 History [Namzaric 28 mg-10 mg Capsule] Methimazole 5 mg PO MOWEFR 12/04/18 12/14/18 History Multivitamins, Thera [Multivitamin 1 tab PO DAILY 12/04/18 12/14/18 History (formulary)] [place]-3/Dha/Epa/Fish Oil [Fish Oil 1 cap PO DAILY 12/04/18 12/14/18 History 500 mg Softgel] Simvastatin [Zocor] 20 mg PO HS 12/04/18 12/14/18 History Timolol 0.5% Ophth Soln [Timoptic 1 drop LEFT EYE BID 12/04/18 12/14/18 History 0.5% Ophth Soln] Losartan [Cozaar] 100 mg PO DAILY tab 12/06/18 12/14/18 Rx amLODIPine [Norvasc] 5 mg PO BID #60 tab 12/06/18 12/14/18 Rx Loratadine [Claritin] 10 mg PO DAILY 12/14/18 12/14/18 History guaiFENesin-DM 100-10MG/5ML 10 ml PO Q4H PRN 12/14/18 12/14/18 History [Robitussin DM] Allergies Allergy/AdvReac Type Severity Reaction Status Date / Time adhesive tape Allergy Unknown Verified 12/14/18 08:37 naproxen [From Aleve] Allergy Nausea & Verified 12/14/18 08:37 Vomiting & Diarrhea Penicillins Allergy Unknown Verified 12/14/18 08:37 Physical Exam Vitals: Vital Signs Temp Pulse Pulse Resp BP BP Pulse Ox 12/14/18 12:30 65 13 118/51 99 12/14/18 12:00 97.9 F 69 17 126/52 98 12/14/18 11:30 67 10 L 131/63 95 12/14/18 11:18 18 12/14/18 11:00 65 18 131/63 100 12/14/18 10:30 69 15 124/63 98 12/14/18 10:00 62 15 130/55 98 12/14/18 09:30 64 17 128/60 98 12/14/18 09:00 68 16 127/60 99 12/14/18 08:30 63 12 99 12/14/18 08:02 18 12/14/18 08:00 98.0 F 59 L 16 111/53 94 L 12/14/18 07:39 63 14 126/62 96 12/14/18 05:18 98.5 F 69 18 149/63 97 12/14/18 04:19 97.5 F L 64 16 142/78 94 L 12/14/18 03:05 98 F 58 L 18 113/43 95 12/14/18 01:50 98.5 F 55 L 16 128/65 97 Intake and Output 12/13/18 12/14/18 12/14/18 22:59 06:59 14:59 Intake Total 675 Balance 675 Intake: IV 400 Sodium Chloride 0.9% 1, 400 000 ml @ 100 mls/hr IV . Q10H [facility] Rx#:[id number] Intake, IV Titration 275 Amount Sodium Chloride 0.9% 1, 200 000 ml @ 100 mls/hr IV . Q10H [facility] Rx#:[id number] Sodium Chloride 0.9% 1, 75 000 ml @ 75 mls/hr IV . [id number] MICHELE Rx#:[id number] Other: Voiding Method Diaper Bedpan Incontinent Incontinent # Voids 1 1 # Bowel Movements 1 1 Weight 66.224 kg 66.224 kg Physical Exam: Revealed a 88-year-old female in no distress. Head: Atraumatic, normocephalic. HEENT:[Neck is supple.] [No neck masses.] [No thyromegaly.] [No JVD.] Chest: [Clear throughout, no crackles, no rhonchi, no wheezes.] Cardiac Exam: [Normal S1 and S2, no S3 gallop, no murmur.] Abdomen: [Soft, nontender, no megaly, no rebound, no guarding, normal bowel sounds.] Extremities: [No clubbing, no edema, no cyanosis.] Neurological Exam: [No focal neurologic deficit.] Alert oriented 3. Psychiatric: Normal mood, affect and mental status examination. Skin: No rashes. Results - Laboratory Findings CBC and BMP: 12/14/18 12:25 12/14/18 02:10 PT/INR, D-dimer PT 9.7 sec (9.0-12.0) 12/14/18 02:10 INR 0.9 (<1.2) 12/14/18 02:10 Abnormal lab findings: Abnormal Labs 12/14/18 12/14/18 12/14/18 02:10 02:10 02:10 WBC 11.3 H RBC 3.66 L Hgb 10.4 L Hct 32.6 L Plt Count 529 H Neutrophils # 8.1 H Sodium 126 L Chloride 93 L BUN 19 H Creatinine 1.12 H Glucose 52 L POC Glucose (mg/dL) Total Protein 5.7 L Albumin 3.0 L Stool Occult Blood Crossmatch See Detail 12/14/18 12/14/18 12/14/18 02:25 03:18 05:57 WBC 11.6 H RBC 3.08 L Hgb 9.3 L Hct 28.1 L Plt Count 501 H Neutrophils # 9.0 H Sodium Chloride BUN Creatinine Glucose POC Glucose (mg/dL) 74 L Total Protein Albumin Stool Occult Blood Positive H Crossmatch 12/14/18 12/14/18 12/14/18 08:54 11:53 12:25 WBC 10.9 H RBC 2.90 L 2.67 L Hgb 8.4 L 8.1 L Hct 26.7 L 24.9 L Plt Count 458 H 462 H Neutrophils # 8.3 H Sodium Chloride BUN Creatinine Glucose POC Glucose (mg/dL) 72 L Total Protein Albumin Stool Occult Blood Crossmatch Assessment and Plan Assessment: Impression: Acute gastrointestinal bleeding, possibly upper GI in nature considering the patient presented with mostly black tarry stools and she was noted to have a drop in hemoglobin from 10.4-8.4. History of benign essential hypertension Hypothyroidism History of depression History of GERD History of osteoarthritis. Recommendation: Patient was ready seen by gastroenterology, On Protonix, patient will be closely monitored in the ICU, no need for a blood transfusion at this point yet, and I believe she is scheduled to undergo EGD in the next 24-48 hours. Patient was placed back on her amlodipine, continue Protonix, continue Cozaar, avoid nonsteroidal anti-inflammatory drugs, avoid any and correlation therapy at this point. Use compression stockings for DVT prophylaxis. We'll continue to follow. Time with Patient: Greater than 30
[2018-12-14 16:48] LABS: Glucose,Whole Blood 79 mg/dL (75-99)
[2018-12-14 17:53] LABS: Appearance,Urine Clear (Clear); Bacteria,Urine Rare /hpf; Bilirubin,Urine Negative (Negative); Blood,Urine Negative (Negative); Color,Urine Light Yellow; Glucose,Urine (UA) Negative (Negative); Ketones,Urine Negative (Negative); Leukocyte Esterase,Urine Trace (Negative); Nitrite,Urine Negative (Negative); Protein,Urine 1+ (Negative); RBC,Urine 4 /hpf (0-5); Squamous Epithelial Cell,Urine <1 /hpf (0-4); Urobilinogen,Urine <2.0 mg/dL (<2.0)
[2018-12-14 18:52] LABS: Basophils # (A) 0.1 k/uL (0-0.2); Basophils % (A) 0 %; Eosinophils # (A) 0.1 k/uL (0-0.7); Eosinophils % (A) 1 %; HCT 24.1 % (34.0-46.0); HGB 7.5 gm/dL (11.4-16.0); Hypochromasia Slight; Lymphocytes # (A) 1.5 k/uL (1.0-4.8); Lymphocytes % (A) 11 %; MCH 28.6 pg (25.0-35.0); MCHC 31.3 g/dL (31.0-37.0); MCV 91.5 fL (80.0-100.0); Monocytes % (A) 8 %; Neutrophils # (A) 10.9 k/uL (1.3-7.7); Neutrophils % (A) 79 %; Platelet Count 440 k/uL (150-450); RBC 2.63 m/uL (3.80-5.40); RDW 13.8 % (11.5-15.5); WBC 13.9 k/uL (3.8-10.6)
[2018-12-14] MEDS: IPRATROPIUM-ALBUTEROL 3 ML NEB INHALATION SCH (20:05)
[2018-12-14 21:30] LABS: Glucose,Whole Blood 67 mg/dL (75-99)
[2018-12-14 21:54] LABS: Glucose,Whole Blood 93 mg/dL (75-99)
[2018-12-15 01:55] LABS: Glucose,Whole Blood 74 mg/dL (75-99)
[2018-12-15 05:34] LABS: Basophils # (A) 0.1 k/uL (0-0.2); Basophils % (A) 1 %; Eosinophils # (A) 0.1 k/uL (0-0.7); Eosinophils % (A) 1 %; HCT 33.9 % (34.0-46.0); Lymphocytes # (A) 1.5 k/uL (1.0-4.8); Lymphocytes % (A) 12 %; MCH 29.6 pg (25.0-35.0); MCHC 32.4 g/dL (31.0-37.0); MCV 91.4 fL (80.0-100.0); Mean Platelet Volume 6.8; Monocytes # (A) 1.4 k/uL (0-1.0); Monocytes % (A) 11 %; Neutrophils # (A) 9.9 k/uL (1.3-7.7); Neutrophils % (A) 75 %; Platelet Count 373 k/uL (150-450); RBC 3.71 m/uL (3.80-5.40); RDW 13.6 % (11.5-15.5); WBC 13.3 k/uL (3.8-10.6)
[2018-12-15 05:47] LABS: Calcium 8.9 mg/dL (8.4-10.2); Magnesium 1.6 mg/dL (1.6-2.3); Phosphorus 3.3 mg/dL (2.5-4.5); Potassium 3.8 mmol/L (3.5-5.1)
[2018-12-15] MEDS ORDERED: Magnesium Replacement Protocol 1 EACH MISC MISCELLANE PRN (05:55)
[2018-12-15] MEDS ORDERED: Potassium Replacement Protocol 1 EACH MISC MISCELLANE PRN ×2 (05:55→18:46)
[2018-12-15] MEDS ORDERED: POTASSIUM CHLORIDE ER 20 MEQ TAB.ER PO SCH (06:00)
[2018-12-15 06:38] LABS: Glucose,Whole Blood 81 mg/dL (75-99)
[2018-12-15] MEDS: IPRATROPIUM-ALBUTEROL 3 ML NEB INHALATION SCH ×4 (07:31→20:12)
[2018-12-15] MEDS: SODIUM CHLORIDE 0.9% 1,000 ML IV SCH ×2 (07:55→17:44)
[2018-12-15] MEDS: amLODIPine 5 MG TAB PO SCH ×2 (08:37→19:12)
[2018-12-15] MEDS: PANTOPRAZOLE 40 MG/10 ML VIAL IVP SCH ×2 (08:38→21:01)
[2018-12-15] MEDS: MAGNESIUM SULFATE-D5W PMX 1 GM in DEXTROSE/WATER 1 100ML.BAG IVPB SCH ×2 (08:38→11:33)
[2018-12-15] MEDS: DORZOLAMIDE HCL 2% DROPS 10 ML BTL LEFT EYE SCH ×2 (08:46→21:05)
[2018-12-15] MEDS: BRIMONIDINE TARTRATE 0.2% DROPS 5 ML BTL LEFT EYE SCH ×2 (08:46→21:06)
[2018-12-15] MEDS: TIMOLOL 0.5% OPHTH DROPS 5 ML BTL LEFT EYE SCH ×2 (08:46→21:06)
[2018-12-15] MEDS ORDERED: LIDOCAINE 1% INJ 10MG/ML (20 ML MDV) ONE (08:57)
[2018-12-15] MEDS ORDERED: PROPOFOL 10 MG/ML 20 ML VIAL IV ONE (08:57)
[2018-12-15] MEDS ORDERED: IV FLUID CONTINUATION 1,000 ML IV ONE (09:00)
--- NOTE | 2018-12-15 09:09 | P.PCN ---
Date of Procedure: 12/15/18 Procedure(s) Performed: BRIEF HISTORY: Patient is a 88-year-old, pleasant, white female, scheduled for an upper endoscopy as a part of evaluation of acute GI bleed.. She had multiple episodes of black tarry stools for the last 2 days' duration and dropped hemoglobin to 8.1 g/dL requiring 2 units of blood transfusion. This morning hemoglobin is 11 g/dL. She denies any NSAID use and takes aspirin on a regular basis. No prior history of peptic ulcer disease. PROCEDURE PERFORMED: Esophagogastroduodenoscopy. PREOPERATIVE DIAGNOSIS: Acute GI bleed/melena. IV sedation per anesthesia. PROCEDURE: After informed consent was obtained, the patient was brought into the endoscopy unit. IV sedation was administered by Anesthesia under continuous monitoring. Initially the Olympus GIF-140 video endoscope was inserted into the mouth. Esophagus intubated without any difficulty. It was gradually advanced into the stomach and duodenum and carefully examined. The bulb and the second part of the duodenum appeared normal. The scope at this time was withdrawn to the stomach, adequately insufflated with air, and upon careful examination, mucosa of the antrum, body, cardia and the fundus appeared normal. The scope was then withdrawn into the esophagus. Small hiatal hernia noted. The GE junction was located at 39 cm from the incisors. The esophagus appeared normal. There were one superficial erosion at the GE junction consistent with LA grade a reflux esophagitis. Rest of the esophagus appeared normal and the patient tolerated the procedure well. IMPRESSION: 1. Small hiatal hernia. 2. LA grade A reflux esophagitis. RECOMMENDATIONS: The findings of this examination were discussed with the patient as well as a family. Since no obvious source of upper GI bleed was identified, discussed with the family and the patient regarding a possible colonoscopy during this hospitalization. Continue with clear liquid diet and monitor CBC and a daily basis..
[2018-12-15] MEDS: LOSARTAN 50 MG TAB PO SCH (10:26)
[2018-12-15 11:58] LABS: Glucose,Whole Blood 73 mg/dL (75-99)
--- NOTE | 2018-12-15 14:10 | P.PN ---
Subjective Progress Note Date: 12/15/18 Principal diagnosis: Acute gastrointestinal bleeding This is an 88-year-old female with history of hypertension, hyperlipidemia, GERD, osteoarthritis and multiple orthopedic surgeries, patient presented to the ER last night accompanied by her daughter who was concerned that her mother has been noticing some dark bloody stools, and noted some bright red blood down the patient leg and upper back. Daughter became concerned, hence she was brought into the ER. The patient herself noted bloody stools, she had no abdominal pain, no nausea, no vomiting, and no hematemesis. Patient had no chest pain, no cough no wheezing no fever no chills no hemoptysis. She did have some vague fatigue and weakness most of the past week. According to the daughter the patient had her colonoscopy about 3 years ago. However the patient when asked could not tell when was the last colonoscopy. No previous history of diverticulosis. No previous history of GI bleeding. Initial hemoglobin on presentation was 10.4, went down to 9.3, and early this morning was noted to be 8.1. Patient was transferred to the ICU, gastroenterology was consulted, and I was also consulted to evaluate the patient in the intensive care unit. During my evaluation, the patient was basically asymptomatic. And she was hemodynamically stable. Patient is already on Protonix, and she will be seen by gastroenterology for possible EGD and/or colonoscopy in the next 24-48 hours. So far, the patient did not require any transfusion. Patient was reevaluated today on 12/15/2018, she underwent EGD today, and she was found to have small hiatal hernia, and esophagitis. This does not explain her true source of GI bleeding and the patient is now scheduled for colonoscopy probably tomorrow by gastroenterology. Hemoglobin today is 11, her hemoglobin yesterday was 7.5. Patient did receive a total of 2 units of packed RBCs yesterday. Presently no active bleeding. Patient is asymptomatic, hemodynamically stable, and in no form of distress. Objective - Vital Signs Vital signs: Vital Signs Temp 97.9 F 12/15/18 12:00 Pulse 70 12/15/18 14:00 Resp 19 12/15/18 14:00 BP 147/69 12/15/18 14:00 Pulse Ox 98 12/15/18 14:00 Intake & Output 12/14/18 12/15/18 12/15/18 18:59 06:59 18:59 Intake Total 1295 2440 800 Output Total 425 1330 1125 Balance 870 1110 -325 Weight 66.224 kg 66.3 kg Intake: IV 1020 1820 800 Magnesium Sulfate-D5w Pmx 100 1 gm In Dextrose/Water 1 100ml.bag @ 100 mls/hr IVPB Q1H [facility] Rx#: [id number] PRBC 620 Sodium Chloride 0.9% 1, 1020 1200 600 000 ml @ 100 mls/hr IV . Q10H [facility] Rx#:[id number] Intake, IV Titration 275 Amount Sodium Chloride 0.9% 1, 200 000 ml @ 100 mls/hr IV . Q10H [facility] Rx#:[id number] Sodium Chloride 0.9% 1, 75 000 ml @ 75 mls/hr IV . [id number] [facility] Rx#:[id number] Blood Product 620 Rc As-1 Unit 310 [id number] Rc As-1 Unit 310 [id number] Output: Urine 425 1330 1125 Other: Voiding Method Incontinent Indwelling Catheter Indwelling Catheter Indwelling Catheter # Voids 100 # Bowel Movements 1 - Exam Physical Exam: Revealed a 88-year-old female in no distress. Head: Atraumatic, normocephalic. HEENT:[Neck is supple.] [No neck masses.] [No thyromegaly.] [No JVD.] Chest: [Clear throughout, no crackles, no rhonchi, no wheezes.] Cardiac Exam: [Normal S1 and S2, no S3 gallop, no murmur.] Abdomen: [Soft, nontender, no megaly, no rebound, no guarding, normal bowel sounds.] Extremities: [No clubbing, no edema, no cyanosis.] Neurological Exam: [No focal neurologic deficit.] Alert oriented 3. Psychiatric: Normal mood, affect and mental status examination. Skin: No rashes. - Labs CBC & Chem 7: 12/15/18 04:56 12/15/18 04:56 Labs: Abnormal Lab Results - Last 24 Hours (Table) 12/14/18 12/14/18 12/14/18 Range/Units 02:10 17:03 18:04 WBC 13.9 H (3.8-10.6) k/uL RBC 2.63 L (3.80-5.40) m/uL Hgb 7.5 L (11.4-16.0) gm/dL Hct 24.1 L (34.0-46.0) % Neutrophils # 10.9 H (1.3-7.7) k/uL Monocytes # (0-1.0) k/uL Sodium (137-145) mmol/L Glucose (74-99) mg/dL POC Glucose (mg/dL) (75-99) mg/dL Urine Protein 1+ H (Negative) Ur Leukocyte Esterase Trace H (Negative) Urine Bacteria Rare H (None) /hpf Crossmatch See Detail 12/14/18 12/15/18 12/15/18 Range/Units 21:27 01:53 04:56 WBC 13.3 H (3.8-10.6) k/uL RBC 3.71 L (3.80-5.40) m/uL Hgb 11.0 L D (11.4-16.0) gm/dL Hct 33.9 L (34.0-46.0) % Neutrophils # 9.9 H (1.3-7.7) k/uL Monocytes # 1.4 H (0-1.0) k/uL Sodium (137-145) mmol/L Glucose (74-99) mg/dL POC Glucose (mg/dL) 67 L 74 L (75-99) mg/dL Urine Protein (Negative) Ur Leukocyte Esterase (Negative) Urine Bacteria (None) /hpf Crossmatch 12/15/18 12/15/18 Range/Units 04:56 11:56 WBC (3.8-10.6) k/uL RBC (3.80-5.40) m/uL Hgb (11.4-16.0) gm/dL Hct (34.0-46.0) % Neutrophils # (1.3-7.7) k/uL Monocytes # (0-1.0) k/uL Sodium 131 L (137-145) mmol/L Glucose 65 L (74-99) mg/dL POC Glucose (mg/dL) 73 L (75-99) mg/dL Urine Protein (Negative) Ur Leukocyte Esterase (Negative) Urine Bacteria (None) /hpf Crossmatch Assessment and Plan Assessment: Impression: Acute gastrointestinal bleeding,, did not seem to be upper GI in nature since her EGD was nondiagnostic. Patient may need colonoscopy in a.m. History of benign essential hypertension Hypothyroidism History of depression History of GERD History of osteoarthritis. Recommendation: Continue present treatment plan, continue to monitor, but the patient is relatively stable at this point, no clinical active bleeding is noted, could be transferred to a regular medical floor, and could have colonoscopy in a.m. as scheduled by gastroenterology. Time with Patient: Less than 30
[2018-12-15] MEDS: ACETAMINOPHEN TAB 325 MG TAB PO PRN ×2 (15:20→22:38)
[2018-12-15] MEDS ORDERED: PEG 3350-NA SULF,BICARB,CL/KCL 4,000 ML BOTTLE PO ONE (16:00)
--- NOTE | 2018-12-15 16:31 | P.PN ---
Subjective This is a pleasant 88 years old female with past medical history of hypertension, hyperlipidemia, syncope, GERD, breast cancer,history of C1 fractur e, wearing a soft collar, depression and fluoxetine, hypothyroidism. This time she presents with blood per rectum, patient at baseline she walks with a walker for the last 2 years since she fell and broke her cervical spine. 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 Yesterday patient daughter noticed dark bloody stool however patient denies diarrhea no abdominal pain no nausea vomiting, patient denies chest pain or dyspnea however she has some dry cough. vital signs stable and hemoglobin 9.3. 12/15/2018 Patient was lying in bed comfortable not in distress denying chest pain and dyspnea. Patient is status post EGD today which showing small hereafter hernia and grade a reflux esophagitis. Bypass remain stable. And she is saturating 100% on 2 L nasal cannula. Hemoglobin is improved today to 11.0 coming up from 7.5 yesterday status post 2 units of blood transfusion. Patient with mild hyponatremia of 131, creatinine 0.8, sugar on the low side at 73-93. Patient remains on normal saline at 100 mL per hour. And also she is on a Protonix or twice a day. CONSTITUTIONAL: No fever, no malaise, no fatigue. HEENT: No recent visual problems or hearing problems. Denied any sore throat. CARDIOVASCULAR: No orthopnea, PND, no palpitations, no syncope. PULMONARY: No shortness of breath, no cough, no hemoptysis. GASTROINTESTINAL: No diarrhea, no nausea, no vomiting, no abdominal pain. Normoactive bowel sounds. NEUROLOGICAL: No headaches, no weakness, no numbness. HEMATOLOGICAL: Denies any bleeding or petechiae. GENITOURINARY: Denies any burning micturition, frequency, or urgency. MUSCULOSKELETAL/RHEUMATOLOGICAL: Denies any joint pain, swelling, or any muscle pain. ENDOCRINE: Denies any polyuria or polydipsia. Medication Tylenol, DuoNeb, Norvasc, truspot, Cozaar, potassium and magnesium replacement, losartan, Objective - Vital Signs Vital signs: Vital Signs Temp 98.7 F 12/15/18 16:00 Pulse 75 12/15/18 16:11 Resp 16 12/15/18 16:11 BP 141/69 12/15/18 16:00 Pulse Ox 100 12/15/18 16:00 Intake & Output 12/14/18 12/15/18 12/15/18 18:59 06:59 18:59 Intake Total 1295 2440 1000 Output Total 425 1330 1425 Balance 870 1110 -425 Weight 66.224 kg 66.3 kg Intake: IV 1020 1820 1000 Magnesium Sulfate-D5w Pmx 100 1 gm In Dextrose/Water 1 100ml.bag @ 100 mls/hr IVPB Q1H [facility] Rx#: [id number] PRBC 620 Sodium Chloride 0.9% 1, 1020 1200 700 000 ml @ 100 mls/hr IV . Q10H [facility] Rx#:[id number] Sodium Chloride 0.9% 1, 100 000 ml @ 100 mls/hr IV . Q10H [facility] Rx#:[id number] Intake, IV Titration 275 Amount Sodium Chloride 0.9% 1, 200 000 ml @ 100 mls/hr IV . Q10H [facility] Rx#:[id number] Sodium Chloride 0.9% 1, 75 000 ml @ 75 mls/hr IV . [id number] [facility] Rx#:[id number] Blood Product 620 Rc As-1 Unit 310 [id number] Rc As-1 Unit 310 [id number] Output: Urine 425 1330 1425 Other: Voiding Method Incontinent Indwelling Catheter Indwelling Catheter Indwelling Catheter # Voids 100 # Bowel Movements 1 - Exam GENERAL: The patient is alert and oriented x3, not in any acute distress. Well developed, well nourished. HEENT: Pupils are round and equally reacting to light. EOMI. No scleral icterus. No conjunctival pallor. Normocephalic, atraumatic. No pharyngeal erythema. No thyromegaly. CARDIOVASCULAR: S1 and S2 present. No murmurs, rubs, or gallops. PULMONARY: Chest is clear to auscultation, no wheezing or crackles. ABDOMEN: Soft, nontender, nondistended, normoactive bowel sounds. No palpable organomegaly. MUSCULOSKELETAL: No joint swelling or deformity. EXTREMITIES: No cyanosis, clubbing, or pedal edema. NEUROLOGICAL: Gross neurological examination did not reveal any focal deficits. SKIN: No rashes. - Labs CBC & Chem 7: 12/15/18 04:56 12/15/18 04:56 Labs: Abnormal Lab Results - Last 24 Hours (Table) 12/14/18 12/14/18 12/14/18 Range/Units 02:10 17:03 18:04 WBC 13.9 H (3.8-10.6) k/uL RBC 2.63 L (3.80-5.40) m/uL Hgb 7.5 L (11.4-16.0) gm/dL Hct 24.1 L (34.0-46.0) % Neutrophils # 10.9 H (1.3-7.7) k/uL Monocytes # (0-1.0) k/uL Sodium (137-145) mmol/L Glucose (74-99) mg/dL POC Glucose (mg/dL) (75-99) mg/dL Urine Protein 1+ H (Negative) Ur Leukocyte Esterase Trace H (Negative) Urine Bacteria Rare H (None) /hpf Crossmatch See Detail 12/14/18 12/15/18 12/15/18 Range/Units 21:27 01:53 04:56 WBC 13.3 H (3.8-10.6) k/uL RBC 3.71 L (3.80-5.40) m/uL Hgb 11.0 L D (11.4-16.0) gm/dL Hct 33.9 L (34.0-46.0) % Neutrophils # 9.9 H (1.3-7.7) k/uL Monocytes # 1.4 H (0-1.0) k/uL Sodium (137-145) mmol/L Glucose (74-99) mg/dL POC Glucose (mg/dL) 67 L 74 L (75-99) mg/dL Urine Protein (Negative) Ur Leukocyte Esterase (Negative) Urine Bacteria (None) /hpf Crossmatch 12/15/18 12/15/18 Range/Units 04:56 11:56 WBC (3.8-10.6) k/uL RBC (3.80-5.40) m/uL Hgb (11.4-16.0) gm/dL Hct (34.0-46.0) % Neutrophils # (1.3-7.7) k/uL Monocytes # (0-1.0) k/uL Sodium 131 L (137-145) mmol/L Glucose 65 L (74-99) mg/dL POC Glucose (mg/dL) 73 L (75-99) mg/dL Urine Protein (Negative) Ur Leukocyte Esterase (Negative) Urine Bacteria (None) /hpf Crossmatch Assessment and Plan Assessment: private blood per stool, GI bleed History of C1 fracture, wearing soft collar History of GERD recentHistory of syncope Hypertension Hyperlipidemia Hypothyroidism History of depression Plan: this is a pleasant 88 years old female who presents with right blood per stool and GI bleed. GI team has been consulted. We will check more blood tests, monitor hemoglobin, anemia workup,Protonix twice a day Labs and medication were reviewed.. Continue same treatment. Continue with symptomatic treatment. Resume home medication. Monitor lytes and vitals. DVT and GI prophylaxis. Further recommendations of the clinical course of the patient DVT prophylaxis: no hepar in view of GI bleed GI Prophylaxis: ppi PT/OT: Pending Prognosis is guarded
[2018-12-15 17:20] LABS: Glucose,Whole Blood 82 mg/dL (75-99)
[2018-12-15 18:31] LABS: Basophils % (A) 0 %; Eosinophils # (A) 0.1 k/uL (0-0.7); Eosinophils % (A) 1 %; HCT 36.2 % (34.0-46.0); HGB 11.7 gm/dL (11.4-16.0); Lymphocytes # (A) 1.6 k/uL (1.0-4.8); Lymphocytes % (A) 10 %; MCH 29.6 pg (25.0-35.0); MCHC 32.3 g/dL (31.0-37.0); MCV 91.5 fL (80.0-100.0); Mean Platelet Volume 6.6; Monocytes # (A) 1.6 k/uL (0-1.0); Monocytes % (A) 10 %; Neutrophils # (A) 12.6 k/uL (1.3-7.7); Neutrophils % (A) 77 %; Platelet Count 421 k/uL (150-450); RBC 3.95 m/uL (3.80-5.40); RDW 13.9 % (11.5-15.5); WBC 16.4 k/uL (3.8-10.6)
[2018-12-15 18:45] LABS: Potassium 3.5 mmol/L (3.5-5.1)
[2018-12-15] MEDS: POTASSIUM CHLORIDE ER 20 MEQ TAB.ER PO SCH ×2 (18:59→21:01)
[2018-12-15 21:03] LABS: Glucose,Whole Blood 92 mg/dL (75-99)
[2018-12-16] MEDS: SODIUM CHLORIDE 0.9% 1,000 ML IV SCH (05:52)
[2018-12-16 07:15] LABS: Glucose,Whole Blood 83 mg/dL (75-99)
[2018-12-16] MEDS: IPRATROPIUM-ALBUTEROL 3 ML NEB INHALATION SCH ×4 (07:25→19:00)
[2018-12-16] MEDS: LOSARTAN 50 MG TAB PO SCH (09:11)
[2018-12-16] MEDS: PANTOPRAZOLE 40 MG/10 ML VIAL IVP SCH ×2 (09:12→20:10)
[2018-12-16] MEDS: BRIMONIDINE TARTRATE 0.2% DROPS 5 ML BTL LEFT EYE SCH ×2 (09:12→20:10)
[2018-12-16] MEDS: TIMOLOL 0.5% OPHTH DROPS 5 ML BTL LEFT EYE SCH ×2 (09:12→20:10)
[2018-12-16] MEDS: DORZOLAMIDE HCL 2% DROPS 10 ML BTL LEFT EYE SCH ×2 (09:12→20:10)
[2018-12-16] MEDS: amLODIPine 5 MG TAB PO SCH ×2 (09:13→20:10)
[2018-12-16 10:04] LABS: Folate, Serum 20.1 ng/mL
--- NOTE | 2018-12-16 10:04 | XR ---
EXAMINATION TYPE: XR chest 1V portable DATE OF EXAM: 12/16/2018 CLINICAL HISTORY: Shortness of breath and cough progress study. TECHNIQUE: Single AP portable frontal view of the chest is obtained. COMPARISON: Chest x-ray from December 06, 2018 FINDINGS: There is persistent small left pleural effusion and associated left basilar atelectasis an d/or infiltrate. There is lateral left suprahilar linear scarring and/or atelectasis. Right lung is c lear. Mild cardiomegaly is redemonstrated. Vertebroplasty roughly T10 level is redemonstrated. IMPRESSION: Overall stable findings, cardiomegaly with small left pleural effusion and associated l eft basilar atelectasis and/or infiltrate with lateral left suprahilar linear scarring and/or atelect asis. No new suspicious focal infiltrate.
[2018-12-16 10:44] LABS: Basophils % (A) 0 %; Eosinophils # (A) 0.1 k/uL (0-0.7); Eosinophils % (A) 1 %; HCT 34.2 % (34.0-46.0); Lymphocytes # (A) 1.3 k/uL (1.0-4.8); Lymphocytes % (A) 10 %; MCH 29.4 pg (25.0-35.0); MCHC 32.2 g/dL (31.0-37.0); MCV 91.1 fL (80.0-100.0); Monocytes # (A) 1.4 k/uL (0-1.0); Monocytes % (A) 10 %; Neutrophils # (A) 10.3 k/uL (1.3-7.7); Neutrophils % (A) 77 %; Platelet Count 422 k/uL (150-450); RBC 3.76 m/uL (3.80-5.40); RDW 13.9 % (11.5-15.5); WBC 13.3 k/uL (3.8-10.6)
[2018-12-16 10:53] LABS: Calcium 8.8 mg/dL (8.4-10.2); Magnesium 1.8 mg/dL (1.6-2.3); Potassium 3.8 mmol/L (3.5-5.1)
[2018-12-16 11:14] LABS: Iron Saturation 8.88 (12.00-45.00)
--- NOTE | 2018-12-16 12:46 | P.PN ---
Subjective Progress Note Date: 12/16/18 Principal diagnosis: Melena, anemia of acute blood loss Patient was scheduled for colonoscopy for evaluation of anemia and melena after EGD was significant only for esophagitis, however the patient failed prep for colonoscopy. Procedure was postponed. Patient will be reprepped for colonoscopy tomorrow. Objective - Vital Signs Vital signs: Vital Signs Temp 99.2 F 12/16/18 05:50 Pulse 72 12/16/18 11:34 Resp 20 12/16/18 05:50 BP 160/81 12/16/18 05:50 Pulse Ox 92 L 12/16/18 05:50 Intake & Output 12/15/18 12/16/18 12/16/18 18:59 06:59 18:59 Intake Total 1200 200 Output Total 1725 3550 Balance -525 -3350 Intake: IV 1200 200 Magnesium Sulfate-D5w Pmx 100 1 gm In Dextrose/Water 1 100ml.bag @ 100 mls/hr IVPB Q1H [facility] Rx#: [id number] Sodium Chloride 0.9% 1, 700 000 ml @ 100 mls/hr IV . Q10H [facility] Rx#:[id number] Sodium Chloride 0.9% 1, 300 200 000 ml @ 50 mls/hr IV . Q20H [facility] Rx#:[id number] Oral 0 Output: Urine 1725 3550 Uretheral (Currie) 1500 Other: Voiding Method Indwelling Catheter Indwelling Catheter Indwelling Catheter # Voids 0 - Labs CBC & Chem 7: 12/16/18 09:26 12/16/18 09:26 Labs: Abnormal Lab Results - Last 24 Hours (Table) 12/14/18 12/14/18 12/15/18 Range/Units 02:30 02:30 18:21 WBC 16.4 H (3.8-10.6) k/uL RBC (3.80-5.40) m/uL Hgb (11.4-16.0) gm/dL Neutrophils # 12.6 H (1.3-7.7) k/uL Monocytes # 1.6 H (0-1.0) k/uL Sodium (137-145) mmol/L Carbon Dioxide (22-30) mmol/L Glucose (74-99) mg/dL Iron 23 L (50-170) ug/dL Iron Saturation 8.88 L (12.00-45.00) Vitamin B12 1708.0 H (200.0-944.0) pg/mL 12/15/18 12/16/18 12/16/18 Range/Units 18:21 09:26 09:26 WBC 13.3 H (3.8-10.6) k/uL RBC 3.76 L (3.80-5.40) m/uL Hgb 11.0 L (11.4-16.0) gm/dL Neutrophils # 10.3 H (1.3-7.7) k/uL Monocytes # 1.4 H (0-1.0) k/uL Sodium 130 L 134 L (137-145) mmol/L Carbon Dioxide 20 L (22-30) mmol/L Glucose 108 H 68 L (74-99) mg/dL Iron (50-170) ug/dL Iron Saturation (12.00-45.00) Vitamin B12 (200.0-944.0) pg/mL
--- NOTE | 2018-12-16 13:49 | P.PN ---
Subjective Progress Note Date: 12/16/18 Principal diagnosis: Acute GI Bleeding This is an 88-year-old female with history of hypertension, hyperlipidemia, GERD, osteoarthritis and multiple orthopedic surgeries, patient presented to the ER last night accompanied by her daughter who was concerned that her mother has been noticing some dark bloody stools, and noted some bright red blood down the patient leg and upper back. Daughter became concerned, hence she was brought into the ER. The patient herself noted bloody stools, she had no abdominal pain, no nausea, no vomiting, and no hematemesis. Patient had no chest pain, no cough no wheezing no fever no chills no hemoptysis. She did have some vague fatigue and weakness most of the past week. According to the daughter the patient had her colonoscopy about 3 years ago. However the patient when asked could not tell when was the last colonoscopy. No previous history of diverticulosis. No previous history of GI bleeding. Initial hemoglobin on presentation was 10.4, went down to 9.3, and early this morning was noted to be 8.1. Patient was transferred to the ICU, gastroenterology was consulted, and I was also consulted to evaluate the patient in the intensive care unit. During my evaluation, the patient was basically asymptomatic. And she was hemo dynamically stable. Patient is already on Protonix, and she will be seen by gastroenterology for possible EGD and/or colonoscopy in the next 24-48 hours. So far, the patient did not require any transfusion. Patient was reevaluated today on 12/15/2018, she underwent EGD today, and she was found to have small hiatal hernia, and esophagitis. This does not explain her true source of GI bleeding and the patient is now scheduled for colonoscopy probably tomorrow by gastroenterology. Hemoglobin today is 11, her hemoglobin yesterday was 7.5. Patient did receive a total of 2 units of packed RBCs y esterday. Presently no active bleeding. Patient is asymptomatic, hemodynamically stable, and in no form of distress. On 12/16/2018 patient seen in follow-up on medical surgical floor. Doing well, she scheduled for colonoscopy sometime this afternoon, she could not finish her prep, she did pass some liquid maroon-colored stools last night, today's hemoglobin is 11.0, hemodynamically patient remains stable, no abdominal pain. No complaints of chest pain or shortness of breath. Objective - Vital Signs Vital signs: Vital Signs Temp 99.2 F 12/16/18 05:50 Pulse 72 12/16/18 11:34 Resp 20 12/16/18 05:50 BP 160/81 12/16/18 05:50 Pulse Ox 92 L 12/16/18 05:50 Intake & Output 12/15/18 12/16/18 12/16/18 18:59 06:59 18:59 Intake Total 1200 200 Output Total 1725 3550 Balance -525 -3350 Intake: IV 1200 200 Magnesium Sulfate-D5w Pmx 100 1 gm In Dextrose/Water 1 100ml.bag @ 100 mls/hr IVPB Q1H [facility] Rx#: [id number] Sodium Chloride 0.9% 1, 700 000 ml @ 100 mls/hr IV . Q10H [facility] Rx#:[id number] Sodium Chloride 0.9% 1, 300 200 000 ml @ 50 mls/hr IV . Q20H [facility] Rx#:[id number] Oral 0 Output: Urine 1725 3550 Uretheral (Currie) 1500 Other: Voiding Method Indwelling Catheter Indwelling Catheter Indwelling Catheter # Voids 0 - Exam GENERAL EXAM: Alert, pleasant, 88-year-old white female on room air comfortable in no apparent distress. HEAD: Normocephalic/atraumatic. EYES: Normal reaction of pupils, equal size. Conjunctiva pink, sclera white. NOSE: Clear with pink turbinates. THROAT: No erythema or exudates. NECK: No masses, no JVD, no thyroid enlargement, no adenopathy. CHEST: No chest wall deformity. Symmetrical expansion. LUNGS: Equal air entry with no crackles, wheeze, rhonchi or dullness. CVS: Regular rate and rhythm, normal S1 and S2, no gallops, no murmurs, no rubs ABDOMEN: Soft, nontender. No hepatosplenomegaly, normal bowel sounds, no guarding or rigidity. EXTREMITIES: No clubbing, no edema, no cyanosis, 2+ pulses and upper and lower extremities. MUSCULOSKELETAL: Muscle strength and tone normal. SPINE: No scoliosis or deformity SKIN: No rashes CENTRAL NERVOUS SYSTEM: Alert and oriented -3. No focal deficits, tone is normal in all 4 extremities. PSYCHIATRIC: Alert and oriented -3. Appropriate affect. Intact judgment and insight. - Labs CBC & Chem 7: 12/16/18 09:26 12/16/18 09:26 Labs: Abnormal Lab Results - Last 24 Hours (Table) 12/14/18 12/14/18 12/15/18 Range/Units 02:30 02:30 18:21 WBC 16.4 H (3.8-10.6) k/uL RBC (3.80-5.40) m/uL Hgb (11.4-16.0) gm/dL Neutrophils # 12.6 H (1.3-7.7) k/uL Monocytes # 1.6 H (0-1.0) k/uL Sodium (137-145) mmol/L Carbon Dioxide (22-30) mmol/L Glucose (74-99) mg/dL Iron 23 L (50-170) ug/dL Iron Saturation 8.88 L (12.00-45.00) Vitamin B12 1708.0 H (200.0-944.0) pg/mL 12/15/18 12/16/18 12/16/18 Range/Units 18:21 09:26 09:26 WBC 13.3 H (3.8-10.6) k/uL RBC 3.76 L (3.80-5.40) m/uL Hgb 11.0 L (11.4-16.0) gm/dL Neutrophils # 10.3 H (1.3-7.7) k/uL Monocytes # 1.4 H (0-1.0) k/uL Sodium 130 L 134 L (137-145) mmol/L Carbon Dioxide 20 L (22-30) mmol/L Glucose 108 H 68 L (74-99) mg/dL Iron (50-170) ug/dL Iron Saturation (12.00-45.00) Vitamin B12 (200.0-944.0) pg/mL Assessment and Plan Plan: Assessment: Acute gastrointestinal bleeding,, did not seem to be upper GI in nature since her EGD was nondiagnostic. Patient scheduled for colonoscopy this afternoon History of benign essential hypertension Hypothyroidism History of depression History of GERD History of osteoarthritis. Plan: Hemodynamically patient remains stable, she is prepped for colonoscopy this af ternoon even though she had difficulty finishing the prep. Today's hemoglobin is 11.0, no acute complaints. Critical care service will sign off at this time, and follow on as-needed basis I performed a history & physical examination of the patient and discussed their management with my nurse practitioner, Marie Narvaez. I reviewed the nurse practitioner's note and agree with the documented findings and plan of care. Lung sounds are positive for clear lung sounds. The findings and the impression was discussed with the patient. I attest to the documentation by the nurse practitioner. Time with Patient: Less than 30
--- NOTE | 2018-12-16 15:58 | XR ---
Left ankle HISTORY: Pain, trauma 2 weeks prior 3 views of the left ankle There is decreased bone mineralization. Lucency is present at the level of the medial malleolus, diff icult to exclude nondisplaced fracture, there is mild soft tissue swelling. Alignment and joint space maintained. There is a plantar calcaneal spur. Ossification present at the insertion of the Achilles tendon. Vascular calcifications are noted. IMPRESSION: Correlate for point tenderness at the medial malleolus, difficult to exclude nondisplaced fracture
[2018-12-16] MEDS ORDERED: PEG 3350-NA SULF,BICARB,CL/KCL 4,000 ML BOTTLE PO ONE (17:00)
[2018-12-16] MEDS ORDERED: BISACODYL 5 MG TABLET.DR PO ONE (18:30)
--- NOTE | 2018-12-16 18:57 | P.PN ---
Subjective This is a pleasant 88 years old female with past medical history of hypertension, hyperlipidemia, syncope, GERD, breast cancer,history of C1 fractur e, wearing a soft collar, depression and fluoxetine, hypothyroidism. This time she presents with blood per rectum, patient at baseline she walks with a walker for the last 2 years since she fell and broke her cervical spine. She was his baby aspirin for heart disease but she does not have a cafeteria monitor. Yesterday patient daughter noticed dark bloody stool however patient denies diarrhea no abdominal pain no nausea vomiting, patient denies chest pain or dyspnea however she has some dry cough. vital signs stable and hemoglobin 9.3. 12/15/2018 Patient was lying in bed comfortable not in distress denying chest pain and dyspnea. Patient is status post EGD today which showing small hereafter hernia and grade a reflux esophagitis. Bypass remain stable. And she is saturating 100% on 2 L nasal cannula. Hemoglobin is improved today to 11.0 coming up from 7.5 yesterday status post 2 units of blood transfusion. Patient with mild hyponatremia of 131, creatinine 0.8, sugar on the low side at 73-93. Patient remains on normal saline at 100 mL per hour. And also she is on a Protonix or twice a day. 12/16/2018 Patient supposed to go for colonoscopy today however she failed preparation as she was transferred from another floor. However I was not taking. However patient feels comfortable not in distress. Vitals are stable. Patient is been followed by GI and pulmonary team. We will keep follow-up the patient and monitor closely CONSTITUTIONAL: No fever, no malaise, no fatigue. HEENT: No recent visual problems or hearing problems. Denied any sore throat. CARDIOVASCULAR: No orthopnea, PND, no palpitations, no syncope. PULMONARY: No shortness of breath, no cough, no hemoptysis. GASTROINTESTINAL: No diarrhea, no nausea, no vomiting, no abdominal pain. Normoa ctive bowel sounds. NEUROLOGICAL: No headaches, no weakness, no numbness. HEMATOLOGICAL: Denies any bleeding or petechiae. GENITOURINARY: Denies any burning micturition, frequency, or urgency. MUSCULOSKELETAL/RHEUMATOLOGICAL: Denies any joint pain, swelling, or any muscle pain. ENDOCRINE: Denies any polyuria or polydipsia. Medication Tylenol, DuoNeb, Norvasc, truspot, Cozaar, potassium and magnesium replacement, losartan, Objective - Vital Signs Vital signs: Vital Signs Temp 99.8 F H 12/16/18 13:30 Pulse 72 12/16/18 15:50 Resp 20 12/16/18 13:30 BP 138/61 12/16/18 13:30 Pulse Ox 93 L 12/16/18 13:30 Intake & Output 12/15/18 12/16/18 12/16/18 18:59 06:59 18:59 Intake Total 1200 200 240 Output Total 1725 3550 750 Balance -525 -3350 -510 Intake: IV 1200 200 Magnesium Sulfate-D5w Pmx 100 1 gm In Dextrose/Water 1 100ml.bag @ 100 mls/hr IVPB Q1H MICHELE Rx#: [id number] Sodium Chloride 0.9% 1, 700 000 ml @ 100 mls/hr IV . Q10H MICHELE Rx#:[id number] Sodium Chloride 0.9% 1, 300 200 000 ml @ 50 mls/hr IV . Q20H MICHELE Rx#:[id number] Oral 0 240 Output: Urine 1725 3550 750 Uretheral (Currie) 1500 Other: Voiding Method Indwelling Catheter Indwelling Catheter Indwelling Catheter # Voids 0 # Bowel Movements 3 - Exam GENERAL: The patient is alert and oriented x3, not in any acute distress. Well developed, well nourished. HEENT: Pupils are round and equally reacting to light. EOMI. No scleral icterus. No conjunctival pallor. Normocephalic, atraumatic. No pharyngeal erythema. No thyromegaly. CARDIOVASCULAR: S1 and S2 present. No murmurs, rubs, or gallops. PULMONARY: Chest is clear to auscultation, no wheezing or crackles. ABDOMEN: Soft, nontender, nondistended, normoactive bowel sounds. No palpable organomegaly. MUSCULOSKELETAL: No joint swelling or deformity. EXTREMITIES: No cyanosis, clubbing, or pedal edema. NEUROLOGICAL: Gross neurological examination did not reveal any focal deficits. SKIN: No rashes. - Labs CBC & Chem 7: 12/16/18 09:26 12/16/18 09:26 Labs: Abnormal Lab Results - Last 24 Hours (Table) 12/14/18 12/14/18 12/16/18 Range/Units 02:30 02:30 09:26 WBC (3.8-10.6) k/uL RBC (3.80-5.40) m/uL Hgb (11.4-16.0) gm/dL Neutrophils # (1.3-7.7) k/uL Monocytes # (0-1.0) k/uL Sodium 134 L (137-145) mmol/L Glucose 68 L (74-99) mg/dL Iron 23 L (50-170) ug/dL Iron Saturation 8.88 L (12.00-45.00) Vitamin B12 1708.0 H (200.0-944.0) pg/mL 12/16/18 Range/Units 09:26 WBC 13.3 H (3.8-10.6) k/uL RBC 3.76 L (3.80-5.40) m/uL Hgb 11.0 L (11.4-16.0) gm/dL Neutrophils # 10.3 H (1.3-7.7) k/uL Monocytes # 1.4 H (0-1.0) k/uL Sodium (137-145) mmol/L Glucose (74-99) mg/dL Iron (50-170) ug/dL Iron Saturation (12.00-45.00) Vitamin B12 (200.0-944.0) pg/mL Assessment and Plan Assessment: private blood per stool, GI bleed History of C1 fracture, wearing soft collar History of GERD recentHistory of syncope Hypertension Hyperlipidemia Hypothyroidism History of depression Plan: this is a pleasant 88 years old female who presents with right blood per stool and GI bleed. GI team has been consulted. We will check more blood tests, monitor hemoglobin, anemia workup,Protonix twice a day Labs and medication were reviewed.. Continue same treatment. Continue with symptomatic treatment. Resume home medication. Monitor lytes and vitals. DVT and GI prophylaxis. Further recommendations of the clinical course of the patient DVT prophylaxis: no hepar in view of GI bleed GI Prophylaxis: ppi PT/OT: Pending Prognosis is guarded
[2018-12-17 00:34] LABS: Glucose,Whole Blood 82 mg/dL (75-99)
[2018-12-17] MEDS: SODIUM CHLORIDE 0.9% 1,000 ML IV SCH ×2 (05:51→21:19)
[2018-12-17] MEDS: IPRATROPIUM-ALBUTEROL 3 ML NEB INHALATION SCH ×4 (07:01→19:25)
[2018-12-17] MEDS: amLODIPine 5 MG TAB PO SCH ×2 (07:29→21:12)
[2018-12-17] MEDS: TIMOLOL 0.5% OPHTH DROPS 5 ML BTL LEFT EYE SCH ×2 (07:29→21:12)
[2018-12-17] MEDS: LOSARTAN 50 MG TAB PO SCH (07:29)
[2018-12-17] MEDS: PANTOPRAZOLE 40 MG/10 ML VIAL IVP SCH ×2 (07:29→21:11)
[2018-12-17] MEDS: BRIMONIDINE TARTRATE 0.2% DROPS 5 ML BTL LEFT EYE SCH ×2 (07:30→21:12)
[2018-12-17] MEDS: DORZOLAMIDE HCL 2% DROPS 10 ML BTL LEFT EYE SCH ×2 (07:30→21:12)
[2018-12-17 08:18] LABS: Glucose,Whole Blood 78 mg/dL (75-99)
[2018-12-17 09:47] LABS: Basophils # (A) 0.1 k/uL (0-0.2); Basophils % (A) 0 %; Eosinophils # (A) 0.1 k/uL (0-0.7); Eosinophils % (A) 1 %; HCT 34.6 % (34.0-46.0); HGB 10.9 gm/dL (11.4-16.0); Lymphocytes # (A) 1.1 k/uL (1.0-4.8); Lymphocytes % (A) 7 %; MCH 29.4 pg (25.0-35.0); MCHC 31.5 g/dL (31.0-37.0); MCV 93.5 fL (80.0-100.0); Mean Platelet Volume 6.6; Monocytes # (A) 1.3 k/uL (0-1.0); Monocytes % (A) 9 %; Neutrophils # (A) 11.8 k/uL (1.3-7.7); Neutrophils % (A) 81 %; Platelet Count 425 k/uL (150-450); RBC 3.69 m/uL (3.80-5.40); WBC 14.5 k/uL (3.8-10.6)
[2018-12-17 10:20] LABS: Anion Gap 7 mmol/L; Blood Urea Nitrogen 7 mg/dL (7-17); Calcium 8.8 mg/dL (8.4-10.2); Carbon Dioxide 26 mmol/L (22-30); Chloride 102 mmol/L (98-107); Glucose 73 mg/dL (74-99); Potassium 3.4 mmol/L (3.5-5.1); Sodium 135 mmol/L (137-145)
--- NOTE | 2018-12-17 10:48 | XR ---
EXAMINATION TYPE: XR foot complete LT DATE OF EXAM: 12/17/2018 COMPARISON: NONE HISTORY: Pain TECHNIQUE: Three views are submitted. FINDINGS: The osseous structures are intact. Chronic flexion deformities at the MTP joints noted with arthro chavez. Diffuse osteopenia. Arthropathy of the PIP and DIP joints of all digits. Soft tissue edema not ed. Calcaneal spurs seen and there are vascular calcifications. There is no acute fracture or disloca tion. Joint spaces are preserved. IMPRESSION: 1. No acute fracture or dislocation. If symptoms persist, follow-up exam in 7 to 10 days could be ob tained.
--- NOTE | 2018-12-17 12:16 | P.CNOR ---
History of Present Illness - [facility] Consult date: 12/17/18 History of present illness: This patient is an 88 year old female with a past medical history of hypertension, hyperlipidemia, history of C1 fracture, bilateral total knee arthroplasty, syncope, GERD, breast cancer, depression, and hypothyroidism that presented to the ED on 12/14/18 for evaluation of dark blood per rectum. She was admitted to internal medicine, with consults to GI and pulmonary, for further evaluation. Patient underwent a EGD on 12/15/18 with no source of an upper GI bleed identified, and she is now scheduled for a colonoscopy today. Per nursing, patient was up with physical therapy yesterday and was having pain in left ankle, therefore an x-ray was obtained. X-rays showed a lucency at the medial malleolus, and a nondisplaced fracture could not be ruled out, therefore orthopedics was consulted for further evaluation. At the time of my examination, the patient states she is not experiencing pain of the ankle at rest. She notes it is painful when she is up walking. She notes she ambulates with the aide of a walker, and she has used this walker since her fracture C1, which she also wears a collar for. Patient states she had a fall in the home about 1-2 weeks ago, she is unsure of a specific date. She is unsure when her ankle began hurting, she states her left foot is also painful. Patient denies pain or injury to additional areas of the body. She has no other orthopedic complaints at this time. Past Medical History Past Medical History: Cancer, GERD/Reflux, Hyperlipidemia, Hypertension, Syncope Additional Past Medical History / Comment(s): C-1 fx when patient is up and moving she is supposed to wear a neck brace, ok to not have neck brace on while sleeping, breast cancer left, no bp no iv on left arm, recent influenza 2019, memory loss, confusion, leiden factor 5 homogenous History of Any Multi-Drug Resistant Organisms: None Reported Past Surgical History: Orthopedic Surgery, Tonsillectomy Additional Past Surgical History / Comment(s): (L) breast biopsy, BL knee replacements Past Anesthesia/Blood Transfusion Reactions: No Reported Reaction Past Psychological History: No Psychological Hx Reported Smoking Status: Never smoker Past Alcohol Use History: None Reported Past Drug Use History: None Reported - Past Family History Sister(s) Family Medical History: Cancer Additional Family Medical History / Comment(s): brain cancer, Brother(s) Family Medical History: Cancer Additional Family Medical History / Comment(s): lung cancer Medications and Allergies Home Medications Medication Instructions Recorded Confirmed Type Acetaminophen [Tylenol Arthritis] 1,300 mg PO BID 12/04/18 12/14/18 History Artificial Tears-Hypromellose 1 drop LEFT EYE BID PRN 12/04/18 12/14/18 History [Artificial Tear Drops] Ascorbic Acid [Vitamin C] 500 mg PO DAILY 12/04/18 12/14/18 History Aspirin [[place] Aspirin EC] 81 mg PO DAILY 12/04/18 12/14/18 History Brimonidine Tartrate [Alphagan P 1 drop LEFT EYE BID 12/04/18 12/14/18 History 0.2% Ophth Soln] Calcium Carbonate [Calcium] 600 mg PO DAILY 12/04/18 12/14/18 History Cholecalciferol [Vitamin D3] 400 unit PO DAILY 12/04/18 12/14/18 History Cyanocobalamin (Vitamin B-12) 1,000 mg PO DAILY 12/04/18 12/14/18 History [Vitamin B-12] Dorzolamide 2% [Trusopt 2%] 1 drop LEFT EYE BID 12/04/18 12/14/18 History Esomeprazole Magnesium [NexIUM] 40 mg PO DAILY 12/04/18 12/14/18 History FLUoxetine HCL [PROzac] 10 mg PO DAILY 12/04/18 12/14/18 History Fluticasone Nasal [place] [Flonase 1 spray EA NOSTRIL BID 12/04/18 12/14/18 History Nasal [place]] Folic Acid 1 mg PO DAILY 12/04/18 12/14/18 History Glucosamine Sulfate 500 mg PO DAILY 12/04/18 12/14/18 History Latanoprost/Pf [Latanoprost 0.005% 1 drop BOTH EYES HS 12/04/18 12/14/18 History Eye Drop] Lidocaine/Menthol [Icy Hot 4%-1% 1 patch TRANSDERM DAILY PRN 12/04/18 12/14/18 History Patch] Lysine [l-Lysine] 500 mg PO DAILY 12/04/18 12/14/18 History Memantine HCl/Donepezil HCl 1 cap PO DAILY 12/04/18 12/14/18 History [Namzaric 28 mg-10 mg Capsule] Methimazole 5 mg PO MOWEFR 12/04/18 12/14/18 History Multivitamins, Thera [Multivitamin 1 tab PO DAILY 12/04/18 12/14/18 History (formulary)] [place]-3/Dha/Epa/Fish Oil [Fish Oil 1 cap PO DAILY 12/04/18 12/14/18 History 500 mg Softgel] Simvastatin [Zocor] 20 mg PO HS 12/04/18 12/14/18 History Timolol 0.5% Ophth Soln [Timoptic 1 drop LEFT EYE BID 12/04/18 12/14/18 History 0.5% Ophth Soln] Losartan [Cozaar] 100 mg PO DAILY tab 12/06/18 12/14/18 Rx amLODIPine [Norvasc] 5 mg PO BID #60 tab 12/06/18 12/14/18 Rx Loratadine [Claritin] 10 mg PO DAILY 12/14/18 12/14/18 History guaiFENesin-DM 100-10MG/5ML 10 ml PO Q4H PRN 12/14/18 12/14/18 History [Robitussin DM] Allergies Allergy/AdvReac Type Severity Reaction Status Date / Time adhesive tape Allergy Unknown Verified 12/14/18 08:37 naproxen [From Aleve] Allergy Nausea & Verified 12/14/18 08:37 Vomiting & Diarrhea Penicillins Allergy Unknown Verified 12/14/18 08:37 Physical Examination On examination, the patient is laying in bed in no acute distress. Patient is alert and orientated x3. Patient is wearing a soft neck collar. Her head is atraumatic and normocephalic. Her breathing appears non-labored. On inspection of the left ankle, there is no swelling, erythema, ecchymosis, or skin discoloration. There are no open wounds or lacerations. There is mild tenderness to palpation of the medial malleolus. There is no pain on PROM of the ankle. On inspection of the left foot, there is ecchymosis to the dorsal midfoot. There are no open wounds or lacerations. There is tenderness to palpation of the dorsal midfoot. No pain on PROM of the toes. Patient is able to move toes without issue. Dorsalis pedis pulse +2. The toes are warm and well perfused with brisk capillary refill. Calves are soft and non tender bilaterally. Healed scars on the bilateral knees. No pain with palpation of the bilateral knees. Results Left ankle x-ray 12/16/18: Lucency of the medial malleolus. No additional acute abnormalities noted. Left foot x-ray 12/17/18: No acute fractures noted. - Labs Labs: Abnormal Lab Results - Last 24 Hours (Table) 12/14/18 12/14/18 12/16/18 Range/Units 02:30 02:30 09:26 WBC (3.8-10.6) k/uL RBC (3.80-5.40) m/uL Hgb (11.4-16.0) gm/dL Neutrophils # (1.3-7.7) k/uL Monocytes # (0-1.0) k/uL Sodium 134 L (137-145) mmol/L Glucose 68 L (74-99) mg/dL Iron 23 L (50-170) ug/dL Iron Saturation 8.88 L (12.00-45.00) Vitamin B12 1708.0 H (200.0-944.0) pg/mL 12/16/18 Range/Units 09:26 WBC 13.3 H (3.8-10.6) k/uL RBC 3.76 L (3.80-5.40) m/uL Hgb 11.0 L (11.4-16.0) gm/dL Neutrophils # 10.3 H (1.3-7.7) k/uL Monocytes # 1.4 H (0-1.0) k/uL Sodium (137-145) mmol/L Glucose (74-99) mg/dL Iron (50-170) ug/dL Iron Saturation (12.00-45.00) Vitamin B12 (200.0-944.0) pg/mL H & H 12/14/18 12/14/18 12/14/18 Range/Units 02:10 05:57 08:54 Hgb 10.4 L 9.3 L 8.4 L (11.4-16.0) gm/dL Hct 32.6 L 28.1 L 26.7 L (34.0-46.0) % 12/14/18 12/14/18 12/15/18 Range/Units 12:25 18:04 04:56 Hgb 8.1 L 7.5 L 11.0 L D (11.4-16.0) gm/dL Hct 24.9 L 24.1 L 33.9 L (34.0-46.0) % 12/15/18 12/16/18 Range/Units 18:21 09:26 Hgb 11.7 11.0 L (11.4-16.0) gm/dL Hct 36.2 34.2 (34.0-46.0) % Coagulation 12/14/18 Range/Units 02:10 INR 0.9 (<1.2) Result Diagrams: 12/17/18 09:14 12/17/18 09:14 Assessment and Plan Assessment: Probable non-displaced medial malleolus fracture Foot contusion Plan: - Patient most likely has sustained a left medial malleolus fracture. Recommend she be placed into an Aircast of the left ankle. She may weight bear to tolerance on the left lower extremity. - Ice and elevate the left ankle for pain control. - Continue PT/OT for gait training with Aircast and walker. - We will continue to make recommendations as needed. Patient discussed with Dr. Wagner.
[2018-12-17] MEDS ORDERED: LACTATED RINGERS 1,000 ML IV ONE (14:13)
[2018-12-17] MEDS ORDERED: PROPOFOL 10 MG/ML 20 ML VIAL IV ONE (14:18)
--- NOTE | 2018-12-17 15:23 | P.PCN ---
Date of Procedure: 12/17/18 Description of Procedure: BRIEF HISTORY: Patient is a 88-year-old, pleasant, white female, scheduled for an upper endoscopy as a part of evaluation of acute GI bleed.. She had multiple episodes of black tarry stools for the last 2 days' duration and dropped hemoglobin to 8.1 g/dL requiring 2 units of blood transfusion. She denies any NSAID use and takes aspirin on a regular basis. No prior history of peptic ulcer disease. PROCEDURE PERFORMED: Colonoscopy with biopsy. PREOPERATIVE DIAGNOSIS: Melena, anemia of acute blood loss. ESTIMATED BLOOD LOSS: Minimal. IV sedation per Anesthesia. PROCEDURE: After informed consent was obtained, the patient, was brought into the endoscopy unit. IV sedation was administered by Anesthesia under continuous monitoring. Digital rectal examination was normal. Initially the Olympus CF-190 flexible video colonoscope was then inserted in the rectum, gradually advanced into the cecum without any difficulty. Careful examination was performed as the scope was gradually being withdrawn. Ileocecal valve and the appendiceal orifice were visualized and appeared normal. Prep was excellent. Mucosa of the cecum, ascending colon, transverse colon, descending colon, sigmoid colon, and rectum appeared normal, with some mucosal changes consistent with history of laxative use with random biopsies taken of the right colon, transverse colon and left colon. Pandiverticulosis noted, worse in the left colon. Retroflexion was performed in the rectum and no lesions were seen, internal hemorrhoids noted. The patient tolerated the procedure well. IMPRESSION: 1. Normal-appearing colon from rectum to cecum, some mucosal changes consistent with history of laxative use with random biopsies of the left colon, right colon and transverse colon. 2. Pandiverticulosis. 3. Mild internal hemorrhoids. RECOMMENDATIONS: Findings of this examination were discussed with the patient and her daughters. Okay to resume diet. Await pathology from biopsies. Continue to monitor for signs or symptoms GI bleed. Continue to monitor hemoglobin and transfuse as needed..
--- NOTE | 2018-12-17 23:28 | P.PN ---
Subjective This is a pleasant 88 years old female with past medical history of hypertension, hyperlipidemia, syncope, GERD, breast cancer,history of C1 fractur e, wearing a soft collar, depression and fluoxetine, hypothyroidism. This time she presents with blood per rectum, patient at baseline she walks with a walker for the last 2 years since she fell and broke her cervical spine. 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 Yesterday patient daughter noticed dark bloody stool however patient denies diarrhea no abdominal pain no nausea vomiting, patient denies chest pain or dyspnea however she has some dry cough. vital signs stable and hemoglobin 9.3. 12/15/2018 Patient was lying in bed comfortable not in distress denying chest pain and dyspnea. Patient is status post EGD today which showing small hereafter hernia and grade a reflux esophagitis. Bypass remain stable. And she is saturating 100% on 2 L nasal cannula. Hemoglobin is improved today to 11.0 coming up from 7.5 yesterday status post 2 units of blood transfusion. Patient with mild hyponatremia of 131, creatinine 0.8, sugar on the low side at 73-93. Patient remains on normal saline at 100 mL per hour. And also she is on a Protonix or twice a day. 12/16/2018 Patient supposed to go for colonoscopy today however she failed preparation as she was transferred from another floor. However I was not taking. However patient feels comfortable not in distress. Vitals are stable. Patient is been followed by GI and pulmonary team. We will keep follow-up the patient and monitor closely 12/17/2018 pt underwent colonoscopy today showing diverticulosis, and hemorroids. pt remains clinically stable. Objective - Vital Signs Vital signs: Vital Signs Temp 98.4 F 12/17/18 21:22 Pulse 94 12/17/18 21:22 Resp 17 12/17/18 21:22 BP 133/78 12/17/18 21:22 Pulse Ox 97 12/17/18 21:22 Intake & Output 12/17/18 12/17/18 12/18/18 06:59 18:59 06:59 Intake Total 400 520 Output Total 1507 600 Balance -1107 -80 Intake: IV 400 Oral 400 120 Output: Urine 1500 600 Uretheral ([place]) 1500 Stool 3 Urine/Stool Mix 4 Other: Voiding Method Indwelling Catheter Indwelling Catheter # Voids 3 1 # Bowel Movements 1 - Exam GENERAL: The patient is alert and oriented x3, not in any acute distress. Well developed, well nourished. HEENT: Pupils are round and equally reacting to light. EOMI. No scleral icterus. No conjunctival pallor. Normocephalic, atraumatic. No pharyngeal erythema. No thyromegaly. CARDIOVASCULAR: S1 and S2 present. No murmurs, rubs, or gallops. PULMONARY: Chest is clear to auscultation, no wheezing or crackles. ABDOMEN: Soft, nontender, nondistended, normoactive bowel sounds. No palpable organomegaly. MUSCULOSKELETAL: No joint swelling or deformity. EXTREMITIES: No cyanosis, clubbing, or pedal edema. NEUROLOGICAL: Gross neurological examination did not reveal any focal deficits. SKIN: No rashes. - Labs CBC & Chem 7: 12/17/18 09:14 12/17/18 09:14 Labs: Abnormal Lab Results - Last 24 Hours (Table) 12/17/18 12/17/18 Range/Units 09:14 09:14 WBC 14.5 H (3.8-10.6) k/uL RBC 3.69 L (3.80-5.40) m/uL Hgb 10.9 L (11.4-16.0) gm/dL Neutrophils # 11.8 H (1.3-7.7) k/uL Monocytes # 1.3 H (0-1.0) k/uL Sodium 135 L (137-145) mmol/L Potassium 3.4 L (3.5-5.1) mmol/L Glucose 73 L (74-99) mg/dL Assessment and Plan Assessment: private blood per stool, GI bleed History of C1 fracture, wearing soft collar History of GERD recentHistory of syncope Hypertension Hyperlipidemia Hypothyroidism History of depression Plan: this is a pleasant 88 years old female who presents with right blood per stool and GI bleed. GI team has been consulted. We will check more blood tests, monitor hemoglobin, anemia workup,Protonix twice a day Labs and medication were reviewed.. Continue same treatment. Continue with symptomatic treatment. Resume home medication. Monitor lytes and vitals. DVT and GI prophylaxis. Further recommendations of the clinical course of the patient DVT prophylaxis: no hepar in view of GI bleed GI Prophylaxis: ppi PT/OT: Pending Prognosis is guarded
[2018-12-18] MEDS: LEVOFLOXACIN 500MG-D5W PMX 500 MG in DEXTROSE/WATER 1 100ML.BAG IVPB SCH (02:26)
[2018-12-18 05:29] LABS: Appearance,Urine Clear (Clear); Bacteria,Urine Occasional /hpf; Bilirubin,Urine Negative (Negative); Blood,Urine Negative (Negative); Color,Urine Light Yellow; Glucose,Urine (UA) Negative (Negative); Hyaline Casts,Urine 1 /lpf (0-2); Ketones,Urine Negative (Negative); Leukocyte Esterase,Urine Small (Negative); Mucus,Urine Rare /hpf; Nitrite,Urine Negative (Negative); PH, Urine 7.5 (5.0-8.0); Protein,Urine 1+ (Negative); RBC,Urine 4 /hpf (0-5); Specific Gravity,Urine 1.008 (1.001-1.035); Urobilinogen,Urine <2.0 mg/dL (<2.0); WBC,Urine 8 /hpf (0-5)
[2018-12-18] MEDS: IPRATROPIUM-ALBUTEROL 3 ML NEB INHALATION SCH ×4 (07:45→21:08)
[2018-12-18] MEDS: amLODIPine 5 MG TAB PO SCH ×2 (07:57→21:24)
[2018-12-18] MEDS: PANTOPRAZOLE 40 MG/10 ML VIAL IVP SCH ×2 (07:57→21:24)
[2018-12-18] MEDS: LOSARTAN 50 MG TAB PO SCH (07:57)
[2018-12-18] MEDS: TIMOLOL 0.5% OPHTH DROPS 5 ML BTL LEFT EYE SCH ×2 (07:58→21:25)
[2018-12-18] MEDS: DORZOLAMIDE HCL 2% DROPS 10 ML BTL LEFT EYE SCH ×2 (07:58→21:25)
[2018-12-18] MEDS: BRIMONIDINE TARTRATE 0.2% DROPS 5 ML BTL LEFT EYE SCH ×2 (07:58→21:24)
[2018-12-18] MEDS: ACETAMINOPHEN TAB 325 MG TAB PO PRN (12:41)
[2018-12-18] MEDS ORDERED: ICY HOT PATCH TRANSDERM PRN (14:54)
--- NOTE | 2018-12-18 15:36 | P.PN ---
Subjective This is a pleasant 88 years old female with past medical history of hypertension, hyperlipidemia, syncope, GERD, breast cancer,history of C1 fractur e, wearing a soft collar, depression and fluoxetine, hypothyroidism. This time she presents with blood per rectum, patient at baseline she walks with a walker for the last 2 years since she fell and broke her cervical spine. 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 Yesterday patient daughter noticed dark bloody stool however patient denies diarrhea no abdominal pain no nausea vomiting, patient denies chest pain or dyspnea however she has some dry cough. vital signs stable and hemoglobin 9.3. 12/15/2018 Patient was lying in bed comfortable not in distress denying chest pain and dyspnea. Patient is status post EGD today which showing small hereafter hernia and grade a reflux esophagitis. Bypass remain stable. And she is saturating 100% on 2 L nasal cannula. Hemoglobin is improved today to 11.0 coming up from 7.5 yesterday status post 2 units of blood transfusion. Patient with mild hyponatremia of 131, creatinine 0.8, sugar on the low side at 73-93. Patient remains on normal saline at 100 mL per hour. And also she is on a Protonix or twice a day. 12/16/2018 Patient supposed to go for colonoscopy today however she failed preparation as she was transferred from another floor. However I was not taking. However patient feels comfortable not in distress. Vitals are stable. Patient is been followed by GI and pulmonary team. We will keep follow-up the patient and monitor closely 12/17/2018 pt underwent colonoscopy today showing diverticulosis, and hemorroids. pt remains clinically stable. 12/18/2018 Patient lying in bed comfortable. She is starting diet well. She denies dyspnea or chest pain. No abdominal pain. However patient has sputum with yellow phlegm. She developed fever yesterday and today of 100.2. Patient s tarted yesterday on Levaquin sputum culture has been ordered. Patient has also worsened leukocytosis. Most likely patient is with pneumonia. She has left to take food bone lesion. Orthopedic R following the case, workup still pending. Bone scan has been ordered by the hematology oncology team CONSTITUTIONAL: No fever, no malaise, no fatigue. HEENT: No recent visual problems or hearing problems. Denied any sore throat. CARDIOVASCULAR: No orthopnea, PND, no palpitations, no syncope. PULMONARY: No shortness of breath, no cough, no hemoptysis. GASTROINTESTINAL: No diarrhea, no nausea, no vomiting, no abdominal pain. Normoactive bowel sounds. NEUROLOGICAL: No headaches, no weakness, no numbness. HEMATOLOGICAL: Denies any bleeding or petechiae. GENITOURINARY: Denies any burning micturition, frequency, or urgency. MUSCULOSKELETAL/RHEUMATOLOGICAL: Denies any joint pain, swelling, or any muscle pain. ENDOCRINE: Denies any polyuria or polydipsia. Medication: Medication: Tylenol, DuoNeb, Norvasc, dorzolamide, Prozac, Cozaar, Protonix, normal saline, hemoglobin eyedrops. Objective - Vital Signs Vital signs: Vital Signs Temp 100.2 F H 12/18/18 13:48 Pulse 74 12/18/18 13:48 Resp 18 12/18/18 13:48 BP 117/70 12/18/18 13:48 Pulse Ox 95 12/18/18 13:48 Intake & Output 12/17/18 12/18/18 12/18/18 18:59 06:59 18:59 Intake Total 520 480 Output Total 600 700 375 Balance -80 -700 105 Intake: IV 400 Oral 120 480 Output: Urine 600 700 375 Other: Voiding Method Indwelling Catheter Indwelling Catheter Indwelling Catheter # Voids 1 # Bowel Movements 1 1 - Exam GENERAL: The patient is alert and oriented x3, not in any acute distress. Well developed, well nourished. HEENT: Pupils are round and equally reacting to light. EOMI. No scleral icterus. No conjunctival pallor. Normocephalic, atraumatic. No pharyngeal erythema. No thyromegaly. CARDIOVASCULAR: S1 and S2 present. No murmurs, rubs, or gallops. PULMONARY: Chest is clear to auscultation, no wheezing or crackles. ABDOMEN: Soft, nontender, nondistended, normoactive bowel sounds. No palpable organomegaly. MUSCULOSKELETAL: No joint swelling or deformity. EXTREMITIES: No cyanosis, clubbing, or pedal edema. NEUROLOGICAL: Gross neurological examination did not reveal any focal deficits. SKIN: No rashes. - Labs CBC & Chem 7: 12/17/18 09:14 12/17/18 09:14 Labs: Abnormal Lab Results - Last 24 Hours (Table) 12/18/18 Range/Units 05:00 Urine Protein 1+ H (Negative) Ur Leukocyte Esterase Small H (Negative) Urine WBC 8 H (0-5) /hpf Urine Bacteria Occasional H (None) /hpf Urine Mucus Rare H (None) /hpf Assessment and Plan Assessment: Right blood per stool, GI bleed, with diverticulosis Left ankle lytic lesion, rule out cancerous lesion Pneumonia, on antibiotic History of C1 fracture, wearing soft collar History of GERD recentHistory of syncope Hypertension Hyperlipidemia Hypothyroidism History of depression Plan: this is a pleasant 88 years old female who presents with right blood per stool and GI bleed. Colonoscopy: diverticulosis.,Protonix twice a day. Lytic lesion in the left ankle, hematology/oncology team are following. BONE scan. Labs and medication were reviewed.. Continue same treatment. Continue with symptomatic treatment. Resume home medication. Monitor lytes and vitals. DVT and GI prophylaxis. Further recommendations of the clinical course of the patient DVT prophylaxis: no hepar in view of GI bleed GI Prophylaxis: ppi PT/OT: Pending Prognosis is guarded
[2018-12-18 15:49] LABS: Calcium 8.8 mg/dL (8.4-10.2); Potassium 3.9 mmol/L (3.5-5.1)
[2018-12-18 15:54] LABS: Basophils % (A) 0 %; Eosinophils # (A) 0.2 k/uL (0-0.7); Eosinophils % (A) 1 %; HCT 29.5 % (34.0-46.0); Lymphocytes # (A) 1.2 k/uL (1.0-4.8); Lymphocytes % (A) 9 %; MCH 30.8 pg (25.0-35.0); MCHC 34.1 g/dL (31.0-37.0); MCV 90.3 fL (80.0-100.0); Mean Platelet Volume 7.9; Monocytes # (A) 1.4 k/uL (0-1.0); Monocytes % (A) 10 %; Neutrophils # (A) 10.8 k/uL (1.3-7.7); Neutrophils % (A) 79 %; Platelet Count 450 k/uL (150-450); RBC 3.26 m/uL (3.80-5.40); WBC 13.7 k/uL (3.8-10.6)
[2018-12-18 16:15] VITALS: BMI 25.9
--- NOTE | 2018-12-18 17:04 | NM ---
EXAMINATION TYPE: NM bone scan whole body DATE OF EXAM: 12/18/2018 COMPARISON: NONE HISTORY: Breast cancer Delayed whole-body scanning was performed following the injection of 20.1 mCi Tc 99m MDP. Images acq uired 3 hours post injection. FINDINGS: There is focal increased uptake in the left midfoot. There is apparent bilateral knee prosthesis. The re is slight symmetric increased uptake in the mid and lower thoracic spine this is consistent with d egenerative disease. The remainder of the tracer distribution is fairly normal. IMPRESSION: Increased uptake in the left foot is consistent with degenerative disease. Increased uptake in thorac ic spine also consistent with degenerative disease. No evidence of metastatic disease.
--- NOTE | 2018-12-18 17:27 | XR ---
EXAMINATION TYPE: XR bone survey complete DATE OF EXAM: 12/18/2018 COMPARISON: NONE HISTORY: Lucent bone lesions 16 views in total were obtained. Calvarium is intact with normal vascular and suture markings. There are spondylotic changes in the ce rvical thoracic and lumbar spine. Bony pelvis is intact. 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 There is bone cement and vertebroplasty at T11. There is a right knee prosthesis. There is l eft knee prosthesis. Left and right humerus appear intact. There is multilevel moderate spondylosis a t the upper lumbar spine. There is 15% loss of height of T9 vertebra. This is probably due to old ost eoporotic fracture. IMPRESSION: No acute bony abnormality. I see no evidence of multiple myeloma. Osteoarthritic changes. Mild compression fractures of T9 and T11 probably due to osteoporosis.
[2018-12-18] MEDS: SODIUM CHLORIDE 0.9% 1,000 ML IV SCH (18:12)
--- NOTE | 2018-12-18 20:03 | P.PN ---
Subjective Progress Note Date: 12/18/18 This patient is an 88 year old female with a past medical history of hypertension, hyperlipidemia, history of C1 fracture, bilateral total knee arthroplasty, syncope, GERD, breast cancer, depression, and hypothyroidism that presented to the ED on 12/14/18 for evaluation of dark blood per rectum. She was admitted to internal medicine, with consults to GI and pulmonary, for further evaluation. Patient underwent a EGD on 12/15/18 with no source of an upper GI bleed identified, and she is now scheduled for a colonoscopy today. Per nursing, patient was up with physical therapy yesterday and was having pain in left ankle, therefore an x-ray was obtained. X-rays showed a lucency at the medial malleolus, and a nondisplaced fracture could not be ruled out, therefore orthopedics was consulted for further evaluation. 12/17/18: At the time of my examination, the patient states she is not experiencing pain of the ankle at rest. She notes it is painful when she is up walking. She notes she ambulates with the aide of a walker, and she has used this walker since her fracture C1, which she also wears a collar for. Patient states she had a fall in the home about 1-2 weeks ago, she is unsure of a specific date. She is unsure when her ankle began hurting, she states her left foot is also painful. Patient denies pain or injury to additional areas of the body. She has no other orthopedic complaints at this time. 12/18/18: Patient states she is doing well. She is experiencing minimal pain in the left ankle and foot today. She has not yet obtained the Aircast was ordered yesterday. Patient denies any new orthopedic complaints at this time. Objective - Vital Signs Vital signs: Vital Signs Temp 100.2 F H 12/18/18 13:48 Pulse 74 12/18/18 13:48 Resp 18 12/18/18 13:48 BP 117/70 12/18/18 13:48 Pulse Ox 95 12/18/18 13:48 Intake & Output 12/18/18 12/18/18 12/19/18 06:59 18:59 06:59 Intake Total 480 Output Total 700 375 Balance -700 105 Weight 66.3 kg Intake: Oral 480 Output: Urine 700 375 Other: Voiding Method Indwelling Catheter Indwelling Catheter # Bowel Movements 1 - Exam On examination, the patient is laying in bed in no acute distress. Patient is alert and orientated x3. Patient is wearing a soft neck collar. On inspection of the left ankle, there is no swelling, erythema, ecchymosis, or skin discoloration. There are no open wounds or lacerations. There is no tenderness to palpation of the medial malleolus. There is no pain on PROM of the ankle. On inspection of the left foot, there is minimal ecchymosis to the dorsal midfoot. There are no open wounds or lacerations. There is minimal tenderness to palpation of the dorsal midfoot. No pain on PROM of the toes. Patient is able to move toes without issue. Dorsalis pedis pulse +2. The toes are warm and well perfused with brisk capillary refill. Calves are soft and non tender bilaterally. - Labs CBC & Chem 7: 12/18/18 15:08 12/18/18 15:08 Labs: Abnormal Lab Results - Last 24 Hours (Table) 12/18/18 12/18/18 12/18/18 Range/Units 05:00 15:08 15:08 WBC 13.7 H (3.8-10.6) k/uL RBC 3.26 L (3.80-5.40) m/uL Hgb 10.0 L (11.4-16.0) gm/dL Hct 29.5 L (34.0-46.0) % Neutrophils # 10.8 H (1.3-7.7) k/uL Monocytes # 1.4 H (0-1.0) k/uL Sodium 128 L (137-145) mmol/L Urine Protein 1+ H (Negative) Ur Leukocyte Esterase Small H (Negative) Urine WBC 8 H (0-5) /hpf Urine Bacteria Occasional H (None) /hpf Urine Mucus Rare H (None) /hpf Assessment and Plan Assessment: Probable left non-displaced medial malleolus fracture Left foot contusion Plan: -We are still awaiting the arrival of the Aircast that was ordered yesterday. When the brace is obtained, she may weight bear to tolerance on the left lower extremity. - Ice and elevate the left ankle for pain control. - Continue PT/OT for gait training with Aircast and walker. - We will continue to make recommendations as needed. Patient discussed with Dr. Wagner.
[2018-12-18] MEDS: FLUoxetine HCL 10 MG CAP PO SCH (21:52)
[2018-12-18 22:33] LABS: CA27.29 Breast Ca Marker 24.4 U/mL (0.0-38.5)
--- NOTE | 2018-12-18 23:13 | P.CONS ---
History of Present Illness - Reason for Consult Consult date: 12/18/18 Bone lesion. History of breast cancer - History of Present Illness The patient is an 88-year-old lady with multiple medical problems. The patient was admitted to the hospital with episodes of dark red stools, noticed by her family. Her hemoglobin dropped into the 7-8 range. She received 2 U PRBC with stabilisation of her Hgb. She had an EGD and colonoscopy with no major findings. The patient started complaining of left ankle pain on ambulation with physical therapy. She had an x-ray of the foot and left ankle. This revealed a lucency in the medial malleolus of the left ankle suggestive of possible nondisplaced fracture. She was seen by orthopedic surgery, and and treatment with an air cast was recommended. Consult was placed for possible malignant lesion. The patient had noted a fall about 2 weeks before that she may have sustained some trauma to the left foot/ankle. About 2 years prior she had fallen and hurt her head and sustained a compression fracture to her C-spine. She has a history of breast cancer, which apparently is quite remote. The patient denied any history of cancer herself, but this history was obtained from the chart and from her family. Further details are not available. Review of Systems Constitutional: Reports weakness Eyes: denies blurred vision, denies pain Ears: deny: decreased hearing, ear discharge, earache, tinnitus Ears, nose, mouth and throat: Denies headache, Denies sore throat Breasts: Reports as per HPI Cardiovascular: Reports decreased exercise tolerance Respiratory: Denies cough Gastrointestinal: Reports hematochezia Genitourinary: Reports urinary frequency, Denies dysuria, Denies hematuria Menstruation: Reports postmenopausal Musculoskeletal: Reports neck stiffness Musculoskeletal: left: ankle pain Integumentary: Denies pruritus, Denies rash Neurological: Reports gait dysfunction, Reports weakness Psychiatric: Denies anxiety, Denies depression Endocrine: Reports fatigue Hematologic/Lymphatic: Reports as per HPI Past Medical History Past Medical History: Cancer, GERD/Reflux, Hyperlipidemia, Hypertension, Syncope Additional Past Medical History / Comment(s): C-1 fx when patient is up and moving she is supposed to wear a neck brace, ok to not have neck brace on while sleeping, breast cancer left, no bp no iv on left arm, recent influenza 2019, memory loss, confusion, leiden factor 5 homogenous History of Any Multi-Drug Resistant Organisms: None Reported Past Surgical History: Orthopedic Surgery, Tonsillectomy Additional Past Surgical History / Comment(s): (L) breast biopsy, BL knee replacements Past Anesthesia/Blood Transfusion Reactions: No Reported Reaction Past Psychological History: No Psychological Hx Reported Smoking Status: Never smoker Past Alcohol Use History: None Reported Past Drug Use History: None Reported - Past Family History Sister(s) Family Medical History: Cancer Additional Family Medical History / Comment(s): brain cancer, Brother(s) Family Medical History: Cancer Additional Family Medical History / Comment(s): lung cancer Medications and Allergies Home Medications Medication Instructions Recorded Confirmed Type Acetaminophen [Tylenol Arthritis] 1,300 mg PO BID 12/04/18 12/14/18 History Artificial Tears-Hypromellose 1 drop LEFT EYE BID PRN 12/04/18 12/14/18 History [Artificial Tear Drops] Ascorbic Acid [Vitamin C] 500 mg PO DAILY 12/04/18 12/14/18 History Aspirin [[place] Aspirin EC] 81 mg PO DAILY 12/04/18 12/14/18 History Brimonidine Tartrate [Alphagan P 1 drop LEFT EYE BID 12/04/18 12/14/18 History 0.2% Ophth Soln] Calcium Carbonate [Calcium] 600 mg PO DAILY 12/04/18 12/14/18 History Cholecalciferol [Vitamin D3] 400 unit PO DAILY 12/04/18 12/14/18 History Cyanocobalamin (Vitamin B-12) 1,000 mg PO DAILY 12/04/18 12/14/18 History [Vitamin B-12] Dorzolamide 2% [Trusopt 2%] 1 drop LEFT EYE BID 12/04/18 12/14/18 History Esomeprazole Magnesium [NexIUM] 40 mg PO DAILY 12/04/18 12/14/18 History FLUoxetine HCL [PROzac] 10 mg PO DAILY 12/04/18 12/14/18 History Fluticasone Nasal [place] [Flonase 1 spray EA NOSTRIL BID 12/04/18 12/14/18 History Nasal [place]] Folic Acid 1 mg PO DAILY 12/04/18 12/14/18 History Glucosamine Sulfate 500 mg PO DAILY 12/04/18 12/14/18 History Latanoprost/Pf [Latanoprost 0.005% 1 drop BOTH EYES HS 12/04/18 12/14/18 History Eye Drop] Lidocaine/Menthol [Icy Hot 4%-1% 1 patch TRANSDERM DAILY PRN 12/04/18 12/14/18 History Patch] Lysine [l-Lysine] 500 mg PO DAILY 12/04/18 12/14/18 History Memantine HCl/Donepezil HCl 1 cap PO DAILY 12/04/18 12/14/18 History [Namzaric 28 mg-10 mg Capsule] Methimazole 5 mg PO MOWEFR 12/04/18 12/14/18 History Multivitamins, Thera [Multivitamin 1 tab PO DAILY 12/04/18 12/14/18 History (formulary)] [place]-3/Dha/Epa/Fish Oil [Fish Oil 1 cap PO DAILY 12/04/18 12/14/18 History 500 mg Softgel] Simvastatin [Zocor] 20 mg PO HS 12/04/18 12/14/18 History Timolol 0.5% Ophth Soln [Timoptic 1 drop LEFT EYE BID 12/04/18 12/14/18 History 0.5% Ophth Soln] Losartan [Cozaar] 100 mg PO DAILY tab 12/06/18 12/14/18 Rx amLODIPine [Norvasc] 5 mg PO BID #60 tab 12/06/18 12/14/18 Rx Loratadine [Claritin] 10 mg PO DAILY 12/14/18 12/14/18 History guaiFENesin-DM 100-10MG/5ML 10 ml PO Q4H PRN 12/14/18 12/14/18 History [Robitussin DM] Allergies Allergy/AdvReac Type Severity Reaction Status Date / Time adhesive tape Allergy Unknown Verified 12/14/18 08:37 naproxen [From Aleve] Allergy Nausea & Verified 12/14/18 08:37 Vomiting & Diarrhea Penicillins Allergy Unknown Verified 12/14/18 08:37 Physical Exam Vitals: Vital Signs Temp Pulse Pulse Resp BP Pulse Ox 12/18/18 21:55 98.7 F 79 18 133/74 92 L 12/18/18 21:20 80 12/18/18 21:08 82 93 L 12/18/18 13:48 100.2 F H 74 18 117/70 95 12/18/18 11:17 80 12/18/18 11:07 72 12/18/18 07:59 84 12/18/18 07:45 92 12/18/18 05:14 98.1 F 83 17 146/73 96 Intake and Output 12/18/18 12/18/18 12/18/18 06:59 14:59 22:59 Intake Total 480 Output Total 600 375 650 Balance -600 105 -650 Intake: Oral 480 Output: Urine 600 375 650 Other: Voiding Method Indwelling Catheter Indwelling Catheter # Bowel Movements 1 Weight 66.3 kg - Constitutional General appearance: no acute distress - EENT Eyes: EOMI, PERRLA ENT: hearing grossly normal, normal oropharynx - Neck Neck: no lymphadenopathy Thyroid: bilateral: normal size - Respiratory Respiratory: bilateral: CTA - Cardiovascular Rhythm: regular Heart sounds: normal: S1, S2 - Gastrointestinal General gastrointestinal: normal bowel sounds, soft - Integumentary Integumentary: normal - Neurologic Neurologic: CNII-XII intact - Musculoskeletal no swelling at left ankle. Range of motion maintained. No significant tenderness on palpation or passive range of motion Musculoskeletal: generalized weakness, strength equal bilaterally - Psychiatric Psychiatric: A&O x's 3, appropriate affect Results CBC & Chem 7: 12/18/18 15:08 12/18/18 15:08 Labs: Abnormal Lab Results - Last 24 Hours (Table) 12/18/18 12/18/18 12/18/18 Range/Units 05:00 15:08 15:08 WBC 13.7 H (3.8-10.6) k/uL RBC 3.26 L (3.80-5.40) m/uL Hgb 10.0 L (11.4-16.0) gm/dL Hct 29.5 L (34.0-46.0) % Neutrophils # 10.8 H (1.3-7.7) k/uL Monocytes # 1.4 H (0-1.0) k/uL Sodium 128 L (137-145) mmol/L Urine Protein 1+ H (Negative) Ur Leukocyte Esterase Small H (Negative) Urine WBC 8 H (0-5) /hpf Urine Bacteria Occasional H (None) /hpf Urine Mucus Rare H (None) /hpf Comments: Foot and ankle x-ray reports reviewed. EGD/colonoscopy report reviewed Chest x-ray: report reviewed Assessment and Plan (1) Bone lesion Narrative/Plan: The consult was placed to assess her left ankle lesion. This is noted to be a lucency in the medial malleolus. The x-ray reports a possible nondisplaced fracture. Orthopedic evaluation confirmed the same. On imaging this does not appear to be a destructive lesion. The patient likely has osteoporosis, given her history and age. Therefore this lucency most likely represents osteoporotic changes with possible nondisplaced fracture. Clinically, based on physical exam and imaging, a metastatic lesion is unlikely. For additional evaluation, a bone survey and bone scan will be ordered. If negative, further workup would not be recommended at this time Current Visit: Yes Status: Acute Code(s): M89.9 - DISORDER OF BONE, UN SPECIFIED SNOMED Code(s): 27142306 (2) Anemia Narrative/Plan: Baseline hemoglobin was essentially normal. This anemia appears to be due to blood loss. 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 Currently hemoglobin is stable, with no evidence of recurrent bleeding. Patient will be started on oral iron supplementation Current Visit: Yes Status: Acute Code(s): D64.9 - ANEMIA, UNSPECIFIED SNOMED Code(s): 084341481 Plan: Defer to the admitting service and other consultants for management of her other medical problems
[2018-12-19] MEDS: LEVOFLOXACIN 500MG-D5W PMX 500 MG in DEXTROSE/WATER 1 100ML.BAG IVPB SCH (00:42)
[2018-12-19] MEDS: IPRATROPIUM-ALBUTEROL 3 ML NEB INHALATION SCH ×4 (07:08→19:08)
[2018-12-19] MEDS: FERROUS SULFATE 325 MG TAB PO SCH ×2 (08:27→17:00)
[2018-12-19] MEDS: PANTOPRAZOLE 40 MG/10 ML VIAL IVP SCH ×2 (08:46→21:07)
[2018-12-19] MEDS: LOSARTAN 50 MG TAB PO SCH (09:11)
[2018-12-19] MEDS: FLUoxetine HCL 10 MG CAP PO SCH (09:15)
[2018-12-19] MEDS: amLODIPine 5 MG TAB PO SCH ×2 (09:15→21:07)
[2018-12-19] MEDS: DORZOLAMIDE HCL 2% DROPS 10 ML BTL LEFT EYE SCH ×2 (09:18→21:08)
[2018-12-19] MEDS: TIMOLOL 0.5% OPHTH DROPS 5 ML BTL LEFT EYE SCH ×2 (09:18→21:08)
[2018-12-19] MEDS: BRIMONIDINE TARTRATE 0.2% DROPS 5 ML BTL LEFT EYE SCH ×2 (09:18→21:07)
--- NOTE | 2018-12-19 12:06 | P.PN ---
Subjective Progress Note Date: 12/19/18 Principal diagnosis: Lucency on x-ray of the ankle, history of breast cancer Patient seen today in follow-up. She is sitting up in bed, she denies fevers, nausea, difficulty in breathing, cough, abdominal discomfort, hematuria, black or bloody stool, no other bleeding to report. She is not in any pain Objective - Vital Signs Vital signs: Vital Signs Temp 99.5 F 12/19/18 05:00 Pulse 84 12/19/18 11:36 Resp 20 12/19/18 05:00 BP 139/71 12/19/18 05:00 Pulse Ox 97 12/19/18 07:08 Intake & Output 12/18/18 12/19/18 12/19/18 18:59 06:59 18:59 Intake Total 480 Output Total 375 1200 Balance 105 -1200 Weight 66.3 kg Intake: Oral 480 Output: Urine 375 1200 Other: Voiding Method Indwelling Catheter Indwelling Catheter Indwelling Catheter # Bowel Movements 1 0 - Constitutional General appearance: Present: average body habitus, cooperative - EENT Eyes: Present: anicteric sclerae ENT: Present: hearing grossly normal - Respiratory Respiratory: bilateral: CTA - Cardiovascular Rhythm: regular Heart sounds: normal: S1, S2 - Peripheral edema leg Peripheral Edema: bilateral: None - Gastrointestinal General gastrointestinal: Present: normal bowel sounds, soft. Absent: absent bowel sounds, decreased bowel sounds, distended, hepatomegaly, hyperactive bowel sounds, organomegaly, rigid, scaphoid, splenomegaly, tenderness, umbilical hernia, ventral hernia - Integumentary Integumentary: Present: pale - Neurologic Neurologic: Present: CNII-XII intact - Musculoskeletal Musculoskeletal: Present: strength equal bilaterally - Psychiatric Psychiatric: Present: A&O x's 3, appropriate affect, intact judgment & insight - Labs CBC & Chem 7: 12/18/18 15:08 12/18/18 15:08 Labs: Abnormal Lab Results - Last 24 Hours (Table) 12/18/18 12/18/18 Range/Units 15:08 15:08 WBC 13.7 H (3.8-10.6) k/uL RBC 3.26 L (3.80-5.40) m/uL Hgb 10.0 L (11.4-16.0) gm/dL Hct 29.5 L (34.0-46.0) % Neutrophils # 10.8 H (1.3-7.7) k/uL Monocytes # 1.4 H (0-1.0) k/uL Sodium 128 L (137-145) mmol/L Microbiology - Last 24 Hours (Table) 12/18/18 15:50 Gram Stain - Preliminary Sputum - Imaging and Cardiology Bone survey report reviewed Nuclear medicine bone scan report reviewed, Breast cancer tumor markers reviewed Assessment and Plan (1) History of breast cancer Narrative/Plan: Tumor markers CA-15-3 and CA-27-29 were ordered. These results were within normal limits. It was explained to the patient that these numbers are not specific for diagnosing disease but, are used as a guide to evaluate unusual symptoms (bone lucency). At this time no additional workup is recommended. Did request from nursing to have patient's images burned to a CD for her to take to her primary oncologist for further review and scrutiny. Patient states she follows up regularly, she needs to continue with the same. Current Visit: Yes Status: Acute Priority: Medium Code(s): Z85.3 - PERSONAL HISTORY OF MALIGNANT NEOPLASM OF BREAST SNOMED Code(s): 661887826 (2) Bone lesion Narrative/Plan: Nuclear medicine bone scan as well as bone survey performed. No evidence to suggest a malignant lytic or blastic process. This was reviewed with the patient Current Visit: Yes Status: Acute Priority: High Code(s): M89.9 - DISORDER OF BONE, UNSPECIFIED SNOMED Code(s): 93399032
[2018-12-19] MEDS: SODIUM CHLORIDE 0.9% 1,000 ML IV SCH (13:02)
[2018-12-19 15:21] LABS: Basophils % (A) 0 %; Eosinophils # (A) 0.1 k/uL (0-0.7); Eosinophils % (A) 2 %; HCT 28.2 % (34.0-46.0); HGB 9.4 gm/dL (11.4-16.0); Lymphocytes % (A) 12 %; MCH 30.3 pg (25.0-35.0); MCHC 33.3 g/dL (31.0-37.0); MCV 91.1 fL (80.0-100.0); Monocytes # (A) 0.9 k/uL (0-1.0); Monocytes % (A) 10 %; Neutrophils # (A) 6.5 k/uL (1.3-7.7); Neutrophils % (A) 74 %; Platelet Count 429 k/uL (150-450); RBC 3.09 m/uL (3.80-5.40); RDW 13.5 % (11.5-15.5); WBC 8.7 k/uL (3.8-10.6)
[2018-12-19 15:28] LABS: Calcium 8.3 mg/dL (8.4-10.2); Potassium 3.2 mmol/L (3.5-5.1)
[2018-12-19] MEDS: POTASSIUM CHLORIDE ER 10 MEQ TAB.ER.PRT PO SCH ×2 (17:00→17:48)
--- NOTE | 2018-12-19 17:06 | P.PN ---
Subjective This is a pleasant 88 years old female with past medical history of hypertension, hyperlipidemia, syncope, GERD, breast cancer,history of C1 fractur e, wearing a soft collar, depression and fluoxetine, hypothyroidism. This time she presents with blood per rectum, patient at baseline she walks with a walker for the last 2 years since she fell and broke her cervical spine. She was his baby aspirin for heart disease but she does not have a customer service coordinator. Yesterday patient daughter noticed dark bloody stool however patient denies diarrhea no abdominal pain no nausea vomiting, patient denies chest pain or dyspnea however she has some dry cough. vital signs stable and hemoglobin 9.3. 12/15/2018 Patient was lying in bed comfortable not in distress denying chest pain and dyspnea. Patient is status post EGD today which showing small hereafter hernia and grade a reflux esophagitis. Bypass remain stable. And she is saturating 100% on 2 L nasal cannula. Hemoglobin is improved today to 11.0 coming up from 7.5 yesterday status post 2 units of blood transfusion. Patient with mild hyponatremia of 131, creatinine 0.8, sugar on the low side at 73-93. Patient remains on normal saline at 100 mL per hour. And also she is on a Protonix or twice a day. 12/16/2018 Patient supposed to go for colonoscopy today however she failed preparation as she was transferred from another floor. However I was not taking. However patient feels comfortable not in distress. Vitals are stable. Patient is been followed by GI and pulmonary team. We will keep follow-up the patient and monitor closely 12/17/2018 pt underwent colonoscopy today showing diverticulosis, and hemorroids. pt remains clinically stable. 12/18/2018 Patient lying in bed comfortable. She is starting diet well. She denies dyspnea or chest pain. No abdominal pain. However patient has sputum with yellow phlegm. She developed fever yesterday and today of 100.2. Patient s tarted yesterday on Levaquin sputum culture has been ordered. Patient has also worsened leukocytosis. Most likely patient is with pneumonia. She has left to take food bone lesion. Orthopedic R following the case, workup still pending. Bone scan has been ordered by the hematology oncology team 12/19/2018 Patient lying in bed comfortable. She still complaining of some cough and phlegm but no chest pain or dyspnea. She still feeling generally weak. Antonio Wharton is provided at bedside however patient hasn't participated in physical therapy yet. Patient still had fever yesterday of 100.2. She remains on levofloxacin. Her leukocytosis is coming back to normal today. And we are waiting for a fever to subside. Patient has Currie catheter. She has this left ankle lytic lesion, which is been evaluated by oncology and orthopedic team, and most likely is related to fracture rather than metastatic disease given her history of breast cancer. Discussed the case with the patient and her daughter at bedside, she hasn't been followed up with her radiation oncologist for about a year ago and they told me he and they want another oncologist to follow up and they suggested , discussed with staff to make appointment with Dr. Rubi. Patient also is hyponatremic which is stable at 128 over yesterday and today. With the patient on which restriction. Follow-up sodium level CONSTITUTIONAL: No fever, no malaise, no fatigue. HEENT: No recent visual problems or hearing problems. Denied any sore throat. CARDIOVASCULAR: No orthopnea, PND, no palpitations, no syncope. PULMONARY: No shortness of breath, no cough, no hemoptysis. GASTROINTESTINAL: No diarrhea, no nausea, no vomiting, no abdominal pain. Normoactive bowel sounds. NEUROLOGICAL: No headaches, no weakness, no numbness. HEMATOLOGICAL: Denies any bleeding or petechiae. GENITOURINARY: Denies any burning micturition, frequency, or urgency. MUSCULOSKELETAL/RHEUMATOLOGICAL: Denies any joint pain, swelling, or any muscle pain. ENDOCRINE: Denies any polyuria or polydipsia. Medication: Medication: Tylenol, DuoNeb, Norvasc, dorzolamide, Prozac, Cozaar, Protonix, normal saline, hemoglobin eyedrops. Objective - Vital Signs Vital signs: Vital Signs Temp 98.9 F 12/19/18 13:02 Pulse 67 12/19/18 15:29 Resp 14 12/19/18 15:29 BP 124/72 12/19/18 13:02 Pulse Ox 94 L 12/19/18 13:02 Intake & Output 12/18/18 12/19/18 12/19/18 18:59 06:59 18:59 Intake Total 480 600 Output Total 375 1200 600 Balance 105 -1200 0 Weight 66.3 kg Intake: IV 400 Sodium Chloride 0.9% 1, 400 000 ml @ 50 mls/hr IV . Q20H [facility] Rx#:[id number] Oral 480 200 Output: Urine 375 1200 600 Other: Voiding Method Indwelling Catheter Indwelling Catheter Indwelling Catheter # Bowel Movements 1 0 - Exam GENERAL: The patient is alert and oriented x3, not in any acute distress. Well developed, well nourished. HEENT: Pupils are round and equally reacting to light. EOMI. No scleral icterus. No conjunctival pallor. Normocephalic, atraumatic. No pharyngeal erythema. No thyromegaly. CARDIOVASCULAR: S1 and S2 present. No murmurs, rubs, or gallops. PULMONARY: Chest is clear to auscultation, no wheezing or crackles. ABDOMEN: Soft, nontender, nondistended, normoactive bowel sounds. No palpable or ganomegaly. MUSCULOSKELETAL: No joint swelling or deformity. EXTREMITIES: No cyanosis, clubbing, or pedal edema. NEUROLOGICAL: Gross neurological examination did not reveal any focal deficits. SKIN: No rashes. - Labs CBC & Chem 7: 12/19/18 15:00 12/19/18 15:00 Labs: Abnormal Lab Results - Last 24 Hours (Table) 12/19/18 12/19/18 Range/Units 15:00 15:00 RBC 3.09 L (3.80-5.40) m/uL Hgb 9.4 L (11.4-16.0) gm/dL Hct 28.2 L (34.0-46.0) % Sodium 128 L (137-145) mmol/L Potassium 3.2 L (3.5-5.1) mmol/L Glucose 141 H (74-99) mg/dL Calcium 8.3 L (8.4-10.2) mg/dL Microbiology - Last 24 Hours (Table) 12/18/18 15:50 Gram Stain - Preliminary Sputum Assessment and Plan Assessment: Right blood per stool, GI bleed, with diverticulosis Left ankle lytic lesion, rule out cancerous lesion Pneumonia, on antibiotic Hyponatremia History of C1 fracture, wearing soft collar History of GERD recentHistory of syncope Hypertension Hyperlipidemia Hypothyroidism History of depression Plan: this is a pleasant 88 years old female who presents with right blood per stool and GI bleed. Colonoscopy: diverticulosis.,Protonix twice a day. Lytic lesion in the left ankle, hematology/oncology team are following. BONE scan. Labs and medication were reviewed.. Continue same treatment. Continue with symptomatic treatment. Resume home medication. Monitor lytes and vitals. DVT and GI prophylaxis. Further recommendations of the clinical course of the patient DVT prophylaxis: no hepar in view of GI bleed GI Prophylaxis: ppi PT/OT: Pending Prognosis is guarded
--- NOTE | 2018-12-19 17:51 | P.PN ---
Subjective Progress Note Date: 12/19/18 This patient is an 88 year old female with a past medical history of hypertension, hyperlipidemia, history of C1 fracture, bilateral total knee arthroplasty, syncope, GERD, breast cancer, depression, and hypothyroidism that presented to the ED on 12/14/18 for evaluation of dark blood per rectum. She was admitted to internal medicine, with consults to GI and pulmonary, for further evaluation. Patient underwent a EGD on 12/15/18 with no source of an upper GI bleed identified, and she is now scheduled for a colonoscopy today. Per nursing, patient was up with physical therapy yesterday and was having pain in left ankle, therefore an x-ray was obtained. X-rays showed a lucency at the medial malleolus, and a nondisplaced fracture could not be ruled out, therefore orthopedics was consulted for further evaluation. 12/17/18: At the time of my examination, the patient states she is not experiencing pain of the ankle at rest. She notes it is painful when she is up walking. She notes she ambulates with the aide of a walker, and she has used this walker since her fracture C1, which she also wears a collar for. Patient states she had a fall in the home about 1-2 weeks ago, she is unsure of a specific date. She is unsure when her ankle began hurting, she states her left foot is also painful. Patient denies pain or injury to additional areas of the body. She has no other orthopedic complaints at this time. 12/18/18: Patient states she is doing well. She is experiencing minimal pain in the left ankle and foot today. She has not yet obtained the Aircast was ordered yesterday. Patient denies any new orthopedic complaints at this time. 12/19/18: Patient examined bedside. She states she is not experiencing pain in the ankle currently. She denies nighttime pain. She denies any new orthopedic compla ints at this time. Oncology evaluated patient yesterday to rule out possible metastasis, per primar y team, as patient has history of breast cancer. Objective - Vital Signs Vital signs: Vital Signs Temp 98.9 F 12/19/18 13:02 Pulse 67 12/19/18 15:29 Resp 14 12/19/18 15:29 BP 124/72 12/19/18 13:02 Pulse Ox 94 L 12/19/18 13:02 Intake & Output 12/18/18 12/19/18 12/19/18 18:59 06:59 18:59 Intake Total 480 600 Output Total 375 1200 600 Balance 105 -1200 0 Weight 66.3 kg Intake: IV 400 Sodium Chloride 0.9% 1, 400 000 ml @ 50 mls/hr IV . Q20H [facility] Rx#:[id number] Oral 480 200 Output: Urine 375 1200 600 Other: Voiding Method Indwelling Catheter Indwelling Catheter Indwelling Catheter # Bowel Movements 1 0 - Exam On examination, the patient is laying in bed in no acute distress. Patient is alert and orientated x3. Patient is wearing a soft neck collar. On inspection of the left ankle, there is no swelling, erythema, ecchymosis, or skin discoloration. There are no open wounds or lacerations. There is no tenderness to palpation of the medial malleolus. There is no pain on PROM of the ankle. On inspection of the left foot, there is minimal ecchymosis to the dorsal midfoot. There are no open wounds or lacerations. There is minimal tenderness to palpation of the dorsal midfoot. No pain on PROM of the toes. Patient is able to move toes without issue. Dorsalis pedis pulse +2. The toes are warm and well perfused with brisk capillary refill. Calves are soft and non tender bilaterally. - Labs CBC & Chem 7: 12/19/18 15:00 12/19/18 15:00 Labs: Abnormal Lab Results - Last 24 Hours (Table) 12/19/18 12/19/18 Range/Units 15:00 15:00 RBC 3.09 L (3.80-5.40) m/uL Hgb 9.4 L (11.4-16.0) gm/dL Hct 28.2 L (34.0-46.0) % Sodium 128 L (137-145) mmol/L Potassium 3.2 L (3.5-5.1) mmol/L Glucose 141 H (74-99) mg/dL Calcium 8.3 L (8.4-10.2) mg/dL Microbiology - Last 24 Hours (Table) 12/18/18 15:50 Gram Stain - Preliminary Sputum - Imaging and Cardiology Left ankle x-ray 12/16/18: Lucency of the medial malleolus. No additional acute abnormalities noted. Left foot x-ray 12/17/18: No acute fractures noted. Assessment and Plan Assessment: Probable left non-displaced medial malleolus fracture Left foot contusion Plan: -Recommend Aircast on left ankle when she is weight bearing. She may weight bear to tolerance on the left lower extremity. - Ice and elevate the left ankle for pain control. - Continue PT/OT for gait training with Aircast and walker. - We will continue to make recommendations as needed. Patient discussed with Dr. Wagner.
[2018-12-19] MEDS ORDERED: LEVOFLOXACIN 250MG-D5W PMX 250 MG in DEXTROSE/WATER 1 50ML.BAG IVPB SCH (21:00)
--- NOTE | 2018-12-19 22:06 | P.PN ---
Subjective Progress Note Date: 12/19/18 Principal diagnosis: Melena, anemia of acute blood loss Patient seen lying in bed. Tolerating her diet. No signs or symptoms GI bleeding reported. Objective - Vital Signs Vital signs: Vital Signs Temp 99.1 F 12/19/18 21:15 Pulse 73 12/19/18 21:15 Resp 17 12/19/18 21:15 BP 134/54 12/19/18 21:15 Pulse Ox 91 L 12/19/18 21:15 Intake & Output 12/19/18 12/19/18 12/20/18 06:59 18:59 06:59 Intake Total 600 Output Total 1200 600 Balance -1200 0 Intake: IV 400 Sodium Chloride 0.9% 1, 400 000 ml @ 50 mls/hr IV . Q20H [facility] Rx#:[id number] Oral 200 Output: Urine 1200 600 Other: Voiding Method Indwelling Catheter Indwelling Catheter # Bowel Movements 0 - Exam On physical examination, patient appears comfortable in no apparent distress. HEAD: Normocephalic, atraumatic. EYES: No scleral icterus. No conjunctival injection. MOUTH: No lesions, tongue midline. NECK: Trachea midline, no gross abnormalities. CHEST: Clear to auscultation with no wheezing or rhonchi appreciated. HEART: Regular rate and rhythm. ABDOMEN: Soft, obese. Bowel sounds are positive. No organomegaly. No guarding or rigidity. EXTREMITIES: No pedal edema. SKIN: No rashes, no jaundice. NEUROLOGIC: Alert and oriented. - Labs CBC & Chem 7: 12/19/18 15:00 12/19/18 15:00 Labs: Abnormal Lab Results - Last 24 Hours (Table) 12/19/18 12/19/18 Range/Units 15:00 15:00 RBC 3.09 L (3.80-5.40) m/uL Hgb 9.4 L (11.4-16.0) gm/dL Hct 28.2 L (34.0-46.0) % Sodium 128 L (137-145) mmol/L Potassium 3.2 L (3.5-5.1) mmol/L Glucose 141 H (74-99) mg/dL Calcium 8.3 L (8.4-10.2) mg/dL Microbiology - Last 24 Hours (Table) 12/18/18 15:50 Gram Stain - Preliminary Sputum Assessment and Plan (1) Melena Narrative/Plan: Patient presenting with reports of melanotic stool, underwent EGD significant for small hiatal hernia and esophagitis, with colonoscopy significant for lal diverticulosis and internal hemorrhoids with biopsies significant only for melanosis coli. No further episodes. Current Visit: Yes Status: Acute Code(s): K92.1 - MELENA SNOMED Code(s): 2752206 (2) Anemia associated with acute blood loss Current Visit: Yes Status: Acute Code(s): D62 - ACUTE POSTHEMORRHAGIC ANEMIA SNOMED Code(s): 765503896 Plan: Supportive care Okay for diet Continue to monitor hemoglobin and hematocrit Continue monitor for signs or symptoms of GI bleeding Continue Protonix daily Thank you for allowing us to participate in the care of the patient, the GI service will stand by, but sculls back with any questions or concerns
[2018-12-20] MEDS: IPRATROPIUM-ALBUTEROL 3 ML NEB INHALATION SCH ×3 (06:58→15:41)
[2018-12-20] MEDS ORDERED: PANTOPRAZOLE 40 MG TABLET PO SCH (07:30)
[2018-12-20] MEDS: amLODIPine 5 MG TAB PO SCH (08:44)
[2018-12-20] MEDS: FLUoxetine HCL 10 MG CAP PO SCH (08:44)
[2018-12-20] MEDS: LOSARTAN 50 MG TAB PO SCH (08:44)
[2018-12-20] MEDS: TIMOLOL 0.5% OPHTH DROPS 5 ML BTL LEFT EYE SCH (08:45)
[2018-12-20] MEDS: BRIMONIDINE TARTRATE 0.2% DROPS 5 ML BTL LEFT EYE SCH (08:45)
[2018-12-20] MEDS: DORZOLAMIDE HCL 2% DROPS 10 ML BTL LEFT EYE SCH (08:45)
[2018-12-20] MEDS: FERROUS SULFATE 325 MG TAB PO SCH (08:47)
[2018-12-20] MEDS: SODIUM CHLORIDE 0.9% 1,000 ML IV SCH (09:15)
[2018-12-20 09:19] VITALS: RESP 16
--- NOTE | 2018-12-20 11:42 | P.DS ---
Providers Date of admission: 12/14/18 02:27 Expected date of discharge: 12/20/18 Attending physician: Matthew Araujo MD Consults: 12/14/18 08:06 Consult Physician Stat Consulting Provider: Alex Lay Consult Reason/Comments: icu managment Do you want consulting provider notified?: Yes 12/16/18 19:06 Consult Physician Routine Consulting Provider: Tj Wagner Consult Reason/Comments: possible l ankle fracture Do you want consulting provider notified?: Yes 12/17/18 15:34 Consult Physician Routine Consulting Provider: Derrick Beach Consult Reason/Comments: possible left ankle CA Do you want consulting provider notified?: Yes Primary care physician: [facility] Course: 88 years old female with past medical history of hypertension, hyperlipidemia, syncope, GERD, breast cancer,history of C1 fracture, wearing a soft collar, depression and fluoxetine, hypothyroidism. This time she presents with blood per rectum, patient at baseline she walks with a walker for the last 2 years since she fell and broke her cervical spine. 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 Yesterday patient daughter noticed dark bloody stool however patient denies diarrhea no abdominal pain no nausea vomiting, patient denies chest pain or dyspnea however she has some dry cough. vital signs stable and hemoglobin 9.3. 12/15/2018 Patient was lying in bed comfortable not in distress denying chest pain and dyspnea. Patient is status post EGD today which showing small hereafter hernia and grade a reflux esophagitis. Bypass remain stable. And she is saturating 100% on 2 L nasal cannula. Hemoglobin is improved today to 11.0 coming up from 7.5 yesterday status post 2 units of blood transfusion. Patient with mild hyponatremia of 131, creatinine 0.8, sugar on the low side at 73-93. Patient remains on normal saline at 100 mL per hour. And also she is on a Protonix or twice a day. 12/16/2018 Patient supposed to go for colonoscopy today however she failed preparation as she was transferred from another floor. However I was not taking. However patient feels comfortable not in distress. Vitals are stable. Patient is been followed by GI and pulmonary team. We will keep follow-up the patient and monitor closely 12/17/2018 pt underwent colonoscopy today showing diverticulosis, and hemorroids. pt remains clinically stable. 12/18/2018 Patient lying in bed comfortable. She is starting diet well. She denies dyspnea or chest pain. No abdominal pain. However patient has sputum with yellow phlegm. She developed fever yesterday and today of 100.2. Patient started yesterday on Levaquin sputum culture has been ordered. Patient has also worsened leukocytosis. Most likely patient is with pneumonia. She has left to take food bone lesion. Orthopedic R following the case, workup still pending. Bone scan has been ordered by the hematology oncology team 12/19/2018 Patient lying in bed comfortable. She still complaining of some cough and phlegm but no chest pain or dyspnea. She still feeling generally weak. Antoniogee Wharton is provided at bedside however patient hasn't participated in physical therapy yet. Patient still had fever yesterday of 100.2. She remains on levofloxacin. Her leukocytosis is coming back to normal today. And we are waiting for a fever to subside. Patient has Currie catheter. She has this left ankle lytic lesion, which is been evaluated by oncology and orthopedic team, and most likely is related to fracture rather than metastatic disease given her history of breast cancer. 12/20/18 Patient is evaluated with daughter at bedside; all Qs were answereed to satisfaction Patient Condition at Discharge: Serious Plan - Discharge Summary Discharge Rx Participant: Yes New Discharge Prescriptions: New Ferrous Sulfate [Iron (65 MG Elemental)] 325 mg PO BID-W/MEALS tab Pantoprazole [Protonix] 40 mg PO AC-BRKFST #30 tablet. Continue Loratadine [Claritin] 10 mg PO DAILY guaiFENesin-DM 100-10MG/5ML [Robitussin DM] 10 ml PO Q4H PRN PRN Reason: Cough Discontinued Aspirin [[place] Aspirin EC] 81 mg PO DAILY No Action Simvastatin [Zocor] 20 mg PO HS Memantine HCl/Donepezil HCl [Namzaric 28 mg-10 mg Capsule] 1 cap PO DAILY Methimazole 5 mg PO MOWEFR Latanoprost/Pf [Latanoprost 0.005% Eye Drop] 1 drop BOTH EYES HS Fluticasone Nasal [place] [Flonase Nasal [place]] 1 spray EA NOSTRIL BID FLUoxetine HCL [PROzac] 10 mg PO DAILY Esomeprazole Magnesium [NexIUM] 40 mg PO DAILY Dorzolamide 2% [Trusopt 2%] 1 drop LEFT EYE BID Brimonidine Tartrate [Alphagan P 0.2% Ophth Soln] 1 drop LEFT EYE BID Lysine [l-Lysine] 500 mg PO DAILY Cyanocobalamin (Vitamin B-12) [Vitamin B-12] 1,000 mg PO DAILY Ascorbic Acid [Vitamin C] 500 mg PO DAILY Cholecalciferol [Vitamin D3] 400 unit PO DAILY Multivitamins, Thera [Multivitamin (formulary)] 1 tab PO DAILY Artificial Tears-Hypromellose [Artificial Tear Drops] 1 drop LEFT EYE BID PRN PRN Reason: Dry Eye(S) Lidocaine/Menthol [Icy Hot 4%-1% Patch] 1 patch TRANSDERM DAILY PRN PRN Reason: LOWER BACK Glucosamine Sulfate 500 mg PO DAILY [place]-3/Dha/Epa/Fish Oil [Fish Oil 500 mg Softgel] 1 cap PO DAILY Folic Acid 1 mg PO DAILY Calcium Carbonate [Calcium] 600 mg PO DAILY Acetaminophen [Tylenol Arthritis] 1,300 mg PO BID Timolol 0.5% Ophth Soln [Timoptic 0.5% Ophth Soln] 1 drop LEFT EYE BID Losartan [Cozaar] 100 mg PO DAILY tab amLODIPine [Norvasc] 5 mg PO BID #60 tab Discharge Medication List Acetaminophen [Tylenol Arthritis] 1,300 mg PO BID 12/04/18 [History] Artificial Tears-Hypromellose [Artificial Tear Drops] 1 drop LEFT EYE BID PRN 12/04/18 [History] Ascorbic Acid [Vitamin C] 500 mg PO DAILY 12/04/18 [History] Brimonidine Tartrate [Alphagan P 0.2% Ophth Soln] 1 drop LEFT EYE BID 12/04/18 [History] Calcium Carbonate [Calcium] 600 mg PO DAILY 12/04/18 [History] Cholecalciferol [Vitamin D3] 400 unit PO DAILY 12/04/18 [History] Cyanocobalamin (Vitamin B-12) [Vitamin B-12] 1,000 mg PO DAILY 12/04/18 [History] Dorzolamide 2% [Trusopt 2%] 1 drop LEFT EYE BID 12/04/18 [History] Esomeprazole Magnesium [NexIUM] 40 mg PO DAILY 12/04/18 [History] FLUoxetine HCL [PROzac] 10 mg PO DAILY 12/04/18 [History] Fluticasone Nasal [place] [Flonase Nasal [place]] 1 spray EA NOSTRIL BID 12/04/18 [History] Folic Acid 1 mg PO DAILY 12/04/18 [History] Glucosamine Sulfate 500 mg PO DAILY 12/04/18 [History] Latanoprost/Pf [Latanoprost 0.005% Eye Drop] 1 drop BOTH EYES HS 12/04/18 [History] Lidocaine/Menthol [Icy Hot 4%-1% Patch] 1 patch TRANSDERM DAILY PRN 12/04/18 [History] Lysine [l-Lysine] 500 mg PO DAILY 12/04/18 [History] Memantine HCl/Donepezil HCl [Namzaric 28 mg-10 mg Capsule] 1 cap PO DAILY 12/04/18 [History] Methimazole 5 mg PO MOWEFR 12/04/18 [History] Multivitamins, Thera [Multivitamin (formulary)] 1 tab PO DAILY 12/04/18 [History] [place]-3/Dha/Epa/Fish Oil [Fish Oil 500 mg Softgel] 1 cap PO DAILY 12/04/18 [History] Simvastatin [Zocor] 20 mg PO HS 12/04/18 [History] Timolol 0.5% Ophth Soln [Timoptic 0.5% Ophth Soln] 1 drop LEFT EYE BID 12/04/18 [History] Losartan [Cozaar] 100 mg PO DAILY tab 12/06/18 [Rx] amLODIPine [Norvasc] 5 mg PO BID #60 tab 12/06/18 [Rx] Loratadine [Claritin] 10 mg PO DAILY 12/14/18 [History] guaiFENesin-DM 100-10MG/5ML [Robitussin DM] 10 ml PO Q4H PRN 12/14/18 [History] Ferrous Sulfate [Iron (65 MG Elemental)] 325 mg PO BID-W/MEALS tab 12/20/18 [Rx] Pantoprazole [Protonix] 40 mg PO AC-BRKFST #30 tablet. 12/20/18 [Rx] Follow up Appointment(s)/Referral(s): Derrick Beach MD [STAFF PHYSICIAN] - 1 Week (oncologist ) Dougie Clark III, MD [Primary Care Provider] - 1-2 days Nicholas Rubi MD [STAFF PHYSICIAN] - 1 Week [facility], [NON-STAFF] - Tj Wagner MD [Medical Doctor] - 2 Weeks Mian Sheriff [NON-STAFF] - (Provided Left ankle aircast.)
[2018-12-20 13:20] VITALS: BP 142/85; PULSE 73; TEMP 98
== END 2018-12-20 15:45 | DRG 377 ==
LOC: EC 01:47 → 3NMEDONC 02:27 → 2SICU 07:34 → 4MS4W 12-15 22:50
PROVIDERS: ADMIT Internal Medicine; ATTEND Internal Medicine
PROC: 30233N1 Transfusion of Nonautologous Red Blood Cells into Peripheral Vein, Percutaneous Approach (ICD-10-PCS; 2018-12-14)
PROC: 0DJ08ZZ Inspection of Upper Intestinal Tract, Via Natural or Artificial Opening Endoscopic (ICD-10-PCS; principal; 2018-12-15 08:24)
PROC: 0DBL8ZX Excision of Transverse Colon, Via Natural or Artificial Opening Endoscopic, Diagnostic (ICD-10-PCS; 2018-12-17)
PROC: 0DBG8ZX Excision of Left Large Intestine, Via Natural or Artificial Opening Endoscopic, Diagnostic (ICD-10-PCS; 2018-12-17)
PROC: 0DBF8ZX Excision of Right Large Intestine, Via Natural or Artificial Opening Endoscopic, Diagnostic (ICD-10-PCS; 2018-12-17)
DX: K57.31 Diverticulosis of large intestine without perforation or abscess with bleeding (principal); J18.9 Pneumonia, unspecified organism; N17.9 Acute kidney failure, unspecified; S12.000A Unspecified displaced fracture of first cervical vertebra, initial encounter for closed fracture; E87.1 Hypo-osmolality and hyponatremia; D62 Acute posthemorrhagic anemia; K64.8 Other hemorrhoids; K44.9 Diaphragmatic hernia without obstruction or gangrene; K21.0 Gastro-esophageal reflux disease with esophagitis; Z66 Do not resuscitate; I10 Essential (primary) hypertension; E78.5 Hyperlipidemia, unspecified; E03.9 Hypothyroidism, unspecified; F32.9 Major depressive disorder, single episode, unspecified; I25.10 Atherosclerotic heart disease of native coronary artery without angina pectoris; M19.90 Unspecified osteoarthritis, unspecified site; S82.55XA Nondisplaced fracture of medial malleolus of left tibia, initial encounter for closed fracture; S90.32XA Contusion of left foot, initial encounter; M89.9 Disorder of bone, unspecified; M81.0 Age-related osteoporosis without current pathological fracture; Z79.82 Long term (current) use of aspirin; Z79.899 Other long term (current) drug therapy; Z80.8 Family history of malignant neoplasm of other organs or systems; Z96.653 Presence of artificial knee joint, bilateral; Z85.3 Personal history of malignant neoplasm of breast; Z88.0 Allergy status to penicillin; Z88.8 Allergy status to other drugs, medicaments and biological substances; Z80.1 Family history of malignant neoplasm of trachea, bronchus and lung
CPT/HCPCS: 36415; 43235; 45380; 71045; 77075; 78306; 80048; 80053; 81001; 82272; 82607; 82728; 82746; 83540; 83550; 83605; 83735; 84100; 84132; 84484; 85025; 85610; 85730; 86300; 86850; 86900; 86901; 86920; 87070; 87205; 87502; 88305; 94640; 94760; 96374; 96375; 99285

== ENCOUNTER → 2019-07-23 | Outpatient (CLI) | payer MEDICARE ==
--- NOTE | 2019-07-25 09:43 | MM ---
Reason for exam: screening (asymptomatic). Last mammogram was performed 1 year and 1 month ago. History: Patient is postmenopausal and has history of breast cancer at age 79. Family history of breast cancer in sister. Malignant lumpectomy of the left breast, 2009. Physical Findings: A clinical breast exam by your physician is recommended on an annual basis and results should be correlated with mammographic findings. MG Screening Mammo w CAD Bilateral CC and MLO view(s) were taken. Prior study comparison: July 03, 2018, mammogram, performed at [facility]. July 02, 2017, mammogram, performed at [facility]. The breast tissue is heterogeneously dense. This may lower the sensitivity of mammography. Finding #1: Architectural distortion in the left breast consistent with known treatment changes. Finding #2: There are typically benign vascular, dystrophic, round calcifications in both breasts. Developing asymmetry right breast several levels inferior. 14mm oval lesion midde depth. New finding and increase in size since July 03, 2018 and July 02, 2017. ASSESSMENT: Incomplete: need additional imaging evaluation, BI-RAD 0 RECOMMENDATION: Ultrasound of the right breast. [facility] will attempt to contact patient to return for ultrasound.
== END | disposition home or self-care (01) ==
LOC: RADMAMWWP 13:57
PROVIDERS: ATTEND Family Medicine
DX: Z12.31 Encounter for screening mammogram for malignant neoplasm of breast (principal)
CPT/HCPCS: 77067

== ENCOUNTER → 2019-07-31 | Outpatient (CLI) | payer MEDICARE ==
--- NOTE | 2019-07-31 11:32 | USB ---
Reason for exam: additional evaluation requested from abnormal screening. History: Patient is postmenopausal and has history of breast cancer at age 79. Family history of breast cancer in sister. Malignant lumpectomy of the left breast, 2008. Physical Findings: Nurse Summary: pain to touch (nurse sommer). US Breast Workup RT Right complete breast ultrasound includes all four quadrants, the retroareolar region and axilla. 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 These results were verbally communicated with the patient and result sheet given to the patient on 07/31/19. ASSESSMENT: Benign, BI-RAD 2 RECOMMENDATION: Follow-up diagnostic mammogram of the right breast in 6 months.
== END | disposition home or self-care (01) ==
LOC: RADUSWWP 10:05
PROVIDERS: ATTEND Family Medicine
DX: R92.8 Other abnormal and inconclusive findings on diagnostic imaging of breast (principal)

== ENCOUNTER → 2019-10-31 | Outpatient (CLI) | payer MEDICARE ==
--- NOTE | 2019-10-31 16:14 | MR ---
EXAMINATION TYPE: MR cervical spine wo con DATE OF EXAM: 10/31/2019 COMPARISON: CT Cervical spine 12/04/2018 HISTORY: Left side neck pain CONTRAST: Performed utilizing 0 mL intravenous Gadavist gadolinium contrast. TECHNIQUE: Multiplanar multiecho imaging on a 3.0 Shasha magnet is performed through the cervical spin e. FINDINGS: The craniovertebral junction is normal. Vertebral body alignment is normal. There may be some slight exaggeration of cervical lordosis in the upper cervical spine. 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 This was evident on the CT examination. C7-T1: No focal disc herniation or significant disc bulge is evident. No spinal canal stenosis or n eural foraminal stenosis is present. C6-7: There is a tiny central protrusion with very minimal anterior thecal sac contact. No cord conta ct is evident. No AP spinal canal stenosis is present. Uncovertebral joint hypertrophy is present wit h mild foraminal narrowing. C5-6: No focal disc herniation or significant disc bulge is evident. No spinal canal stenosis or lamonte ral foraminal stenosis is present. C4-5: Broad-based disc bulge has anterior thecal sac flattening. No cord contact or spinal canal sten osis is present. Neural foramen are patent. C3-4: No focal disc herniation or significant disc bulge is evident. No spinal canal stenosis or lamonte ral foraminal stenosis is present. C2-3: No focal disc herniation or significant disc bulge is evident. No spinal canal stenosis or lamonte ral foraminal stenosis is present. IMPRESSIONS: 1. 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 2. Mild disc bulging C6-7 without cord contact or stenosis. 3. Uncovertebral joint hypertrophy contributing to mild foraminal narrowing C6-7 bilaterally. 4 broad -based disc bulging C4-5 with mild anterior thecal sac flattening.
== END | disposition home or self-care (01) ==
LOC: RADMRIMAIN 14:29
PROVIDERS: ATTEND Neurological Surgery
DX: M48.02 Spinal stenosis, cervical region (principal); M50.221 Other cervical disc displacement at C4-C5 level; S12.112K Nondisplaced Type II dens fracture, subsequent encounter for fracture with nonunion
CPT/HCPCS: 72141

== ENCOUNTER → 2019-10-31 | Outpatient (CLI) | payer MEDICARE ==
--- NOTE | 2019-11-01 14:58 | ECHOF ---
Referral Reason:R60.9 Edema MEASUREMENTS -------- HEIGHT: 152.4 cm WEIGHT: 75.3 kg BP: IVSd: 1.5 cm (0.6 - 1.1) LVIDd: 4.0 cm (3.9 - 5.3) LVPWd: 1.6 cm (0.6 - 1.1) IVSs: 1.9 cm LVIDs: 3.2 cm LVPWs: 1.8 cm LAESV Index (A-L): 60.25 ml/m Ao Diam: 3.1 cm (2.0 - 3.7) MV E Michael: 1.24 m/s MV DecT: 157 ms MV A Michael: 1.38 m/s MV E/A Ratio: 0.90 AV maxP.03 mmHg AV meanP.57 mmHg RAP: 5.00 mmHg RVSP: 34.35 mmHg FINDINGS -------- Sinus rhythm. This was a technically adequate study. The left ventricular size is normal. There is moderate concentric left ventricular hypertrophy. O verall left ventricular systolic function is low-normal with, an EF between 50 - 55 %. The right ventricle is normal in size. The left atrium is markedly dilated. LA is severely dilated >40 ml/m2 The right atrial size is normal. There is severe aortic stenosis present. Peak/mean gradient across the Aortic Valve is 65.03mmHg / 42.57mmHg. Moderate mitral regurgitation is present. The peak and mean MV gradients are 11.08mmHg 3.45mmHg as measured by doppler. Moderate mitral stenosis. Mild tricuspid regurgitation present. Right ventricular systolic pressure is normal at < 35 mmHg. There is no evidence of pulmonary hypertension. There is no pulmonic regurgitation present. The aortic root size is normal. There is no pericardial effusion. CONCLUSIONS -------- 1. Sinus rhythm. 2. This was a technically adequate study. 3. The left ventricular size is normal. 4. There is moderate concentric left ventricular hypertrophy. 5. Overall left ventricular systolic function is low-normal with, an EF between 50 - 55 %. 6. The right ventricle is normal in size. 7. LA is severely dilated >40 ml/m2 8. The right atrial size is normal. 9. There is severe aortic stenosis present. 10. Peak/mean gradient across the Aortic Valve is 65.03mmHg / 42.57mmHg. 11. Moderate mitral regurgitation is present. 12. The peak and mean MV gradients are 11.08mmHg 3.45mmHg as measured by doppler. 13. Moderate mitral stenosis. 14. Mild tricuspid regurgitation present. 15. Right ventricular systolic pressure is normal at < 35 mmHg. 16. There is no evidence of pulmonary hypertension. 17. There is no pulmonic regurgitation present. 18. The aortic root size is normal. 19. There is no pericardial effusion. ASSOCIATE ENGINEER: Matilde Burgess RDCS
== END | disposition home or self-care (01) ==
LOC: RADECHMAIN 14:34
PROVIDERS: ATTEND Family Medicine
DX: I08.3 Combined rheumatic disorders of mitral, aortic and tricuspid valves (principal)
CPT/HCPCS: 93306